=== PATIENT | female | born 1955 | race Caucasian/White ===

== ENCOUNTER 2020-11-09 13:08 | Inpatient (IN) ==
[~2020-11-09 13:08] MED LIST: KETAMINE HCL 50 MG/ML ML IV PRN; MIDAZOLAM 2 MG/2 ML VIAL IV SCH; PROPOFOL 200 MG/20 ML VIAL IV SCH
--- NOTE | 2020-11-09 17:03 | General Surg History&Physical ---
HPI History of Present Illness Patient information: Note initiated : 11/09/20 at 5:03 pm Service Date, if different from initiated Date: [] Patient: Liya Song 65 y/o F admitted on 11/09/20 for Eso phogogastroduodenoscopy and Colonoscopy. Chief Complaint: [] History of present illness: Ms. Song is a 65 year old F admitted for evaluation of an inflammatory mass of the lower sigmoid colon with associated hemorrhage. The patient has greater than a 1 year history of crampy abdominal pain with intermittent nausea and vomiting. She had change in bowel habits with passage of very small stools and intermittent rectal bleeding. She has a history of diverticulosis but no documented episode of diverticulitis. She has had emesis 2-3 times per week and she has had a 5 pound weight loss. Patient underwent colonoscopy earlier today and was found to have an inflammatory lesion with a large cavity exiting off the side of her distal sigmoid with a deep cavity with hemorrhage. She has extensive diverticulosis in the area. Patient is felt to have a pericolonic abscess or a very large diverticulum with severe inflammation. She is admitted and will have follow-up radiographic evaluation in the morning after she passes some of the gas. She will be started on antibiotics and will probably need to have a segmental colectomy. Constitutional Constitutional: Present anorexia, fatigue, malaise, night sweats and weight loss EENT Eyes: Absent blurry vision and loss of vision Ears: Absent decreased hearing and ear discharge Nose, mouth and throat: Absent dry mouth, dysphagia and hoarseness Cardiovascular Cardiovascular: Absent chest pain, dyspnea on exertion and leg edema Respiratory Respiratory: Absent cough, dyspnea on exertion and wheezing Gastrointestinal Gastrointestinal: Present abdominal pain, change in bowel habits, change in stool character, cramping, dyspepsia, hematochezia, nausea and vomiting Genitourinary Genitourinary: Present difficulty voiding and urinary frequency Musculoskeletal Musculoskeletal: Absent abnormal gait, arthralgias, myalgias, numbness and stiffness Integumentary Integumentary: Absent changing lesions, pruritus and rash Neurological Neurological: Present tremor(s); Absent confusion, focal weakness and numbness Psychiatric Psychiatric: Absent confusion, depression and memory loss Endocrine Endocrine: Absent deeping of the voice, excessive sweating, heat intolerance and palpitations Hematologic/Lymphatic Hematologic/Lymphatic: Absent easy bleeding, easy bruising and lymphadenopathy Allergic/Immunologic Allergic/Immunologic: Absent tongue swelling, throat swelling, uticaria, wheezing and lip swelling PFSH PFSH All Active Problems (Updated 11/10/20 @ 13:31 by Get Romano MD) COPD (chronic obstructive pulmonary disease) (Acute) Rectal bleeding (Acute) Colonic mass (Acute) GERD (gastroesophageal reflux disease) (Acute) Change in stool (Acute) Nausea & vomiting (Acute) Tremor (Acute) DJD (degenerative joint disease) (Acute) Stomach ulcer (Acute) Joint pain (Acute) High cholesterol (Acute) Hypertension (Acute) Depression (Acute) Arthritis (Acute) Acid reflux (Acute) Left knee sprain (Acute) Bronchitis with bronchospasm (Acute) Acute exacerbation of chronic obstructive airways disease (Acute) Medical History Acid reflux (Acute) Acute exacerbation of chronic obstructive airways disease (Acute) Arthritis (Acute) Bronchitis with bronchospasm (Acute) Depression (Acute) DJD (degenerative joint disease) (Acute) High cholesterol (Acute) Hypertension (Acute) Joint pain (Acute) Left knee sprain (Acute) Stomach ulcer (Acute) Surgical History History of colonoscopy (Acute) Family History Father Lung cancer Alzheimer disease Mother Type 2 diabetes mellitus Other Arthritis Social History marital status: occupational status: employed occupation: [employer] smoking status: Former smoker alcohol intake frequency: 0-2 drinks per day substance use type: does not use MEDS/ALLERGIES Home Medications and Allergies Home Medications Medication Instructions Recorded Confirmed Type loratadine 10 mg tablet 10 mg PO QDAY #30 tab 08/18/20 11/09/20 Rx propranolol 60 mg capsule,24 60 mg PO QDAY #30 cap 08/18/20 11/09/20 Rx hr,extended release bupropion HCl 150 mg 24 hr tablet, 150 mg PO QDAY #90 tab 09/05/20 11/09/20 Rx extended release escitalopram oxalate 10 mg tablet 10 mg PO DAILY #90 tab 09/05/20 11/09/20 Rx losartan 50 mg tablet 50 mg PO QDAY #90 tab 09/05/20 11/09/20 Rx pantoprazole 40 mg tablet,delayed 40 mg PO QDAY #60 tab 09/20/20 11/09/20 Rx release rosuvastatin 20 mg tablet 20 mg PO QDAY #90 tab 09/22/20 11/09/20 Rx calcium carbonate-vitamin D3 600 cap PO DAILY 11/09/20 11/09/20 History [Calcium 600 + D(3)] Allergies Allergy/AdvReac Type Severity Reaction Status Date / Time Penicillins Allergy Unknown Rash Verified 09/20/20 15:23 Physical Examination Vital Signs Vital signs: Temp Pulse Resp BP Pulse Ox 98.8 F 69 18 153/74 100 11/09/20 16:02 11/09/20 16:05 11/09/20 16:05 11/09/20 16:05 11/09/20 16:05 General physical appearance General physical exam: well developed, well nourished, no distress and no pain Eyes Eye exam: PERRL and normal ocular movement ENT ENT exam: normal mucosa and no congestion; negative no hearing loss Head Head exam IM: Present atraumatic, normal inspection and normocephalic Neck Neck exam: no masses, no bruits, trachea midline, no lymphadenopathy and no venous distension Cardiovascular Cardiovascular exam IM: Present normal rate and rhythm, RRR, +S1 and +S2; Absent JVD, systolic murmur and tachycardia Respiratory Respiratory exam: normal expansion, normal respiratory effort and clear to auscultation Abdomen Abdomen: Present soft, non tender, bowel sounds and distended; Absent masses and guarding Integumentary Integumentary: Present no rash, no growths and no abnormal pigmentation Neurologic Neurologic: Present normal coordination and normal sensation Musculoskeletal Musculoskeletal: Present normal gait and normal posture Psychiatric Psychiatric: Present oriented to time, oriented to person, oriented to place, speech is normal and memory intact Results Labs Result diagrams: 11/09/20 17:34 11/09/20 17:34 Labs: All other labs normal. A/P Assessment and plan (1) Colonic mass: Status: Acute (2) Rectal bleeding: Status: Acute (3) COPD (chronic obstructive pulmonary disease): Status: Acute Qualifiers: COPD type: emphysema Emphysema type: panlobular Qualified Code(s): J43.1 - Panlobular emphysema (4) GERD (gastroesophageal reflux disease): Status: Acute Qualifiers: Esophagitis presence: esophagitis presence not specified Qualified Code(s): K21.9 - Gastro-esophageal reflux disease without esophagitis (5) Change in stool: Status: Acute (6) Tremor: Status: Acute Narrative A/P Narrative: Patient will be started on IV antibiotics tonight CT of the abdomen and pelvis with IV and rectal contrast in the a.m. Transvaginal pelvic ultrasound in the a.m. Probable laparotomy with excision of sigmoid colon inflammatory mass on Saturday Time Spent With Patient Time: Total time spent is greater than 50% in coordination of care (as documented) at patient's floor/unit and/or counseling patient:
[2020-11-09] MEDS ORDERED: ONDANSETRON 4 MG/2 ML VIAL IV PRN (17:05)
[2020-11-09] MEDS ORDERED: PROMETHAZINE 25 MG/ML VIAL IV PRN (17:05)
[2020-11-09] MEDS: 0.9 % SODIUM CHLORIDE 1,000 ML IV SCH ×2 (17:34→22:37)
--- NOTE | 2020-11-09 17:47 | XRay Report ---
INDICATION: preop evaluation TECHNIQUE: AP portable semiupright chest x-ray COMPARISON: Previous chest x-rays dated 10/06/2016, 09/03/2010 FINDINGS: Lungs:Lungs are negative. No focal pulmonary parenchymal infiltrate or mass Heart, vascular:No significant cardiomegaly. Pulmonary vascularity is normal. No pulmonary edema or pulmonary congestion Mediastinum, go:No mediastinal widening. No hilar mass Pleura:No pleural fluid. No pleural-based mass or calcification Skeletal:Negative. IMPRESSION: Negative AP chest x-ray Interpreted and Authenticated by: Wes Vance 11/09/20
[2020-11-09] MEDS: LEVOFLOXACIN 750 MG/150 ML BAG IV SCH (17:55)
[2020-11-09 18:16] LABS: Basophils # (Auto) 0.07 K/mcL (0.00-0.20); Basophils % (Auto) 0.8 % (0.0-2.0); Eosinophils # (Auto) 0.07 K/mcL (0.00-0.70); Eosinophils % (Auto) 0.8 % (0.0-7.0); Hematocrit 40.9 % (36.0-48.0); Hemoglobin 13.5 g/dL (12.0-15.0); Lymphocytes # (Auto) 1.41 K/mcL (1.50-4.80); Lymphocytes % (Auto) 16.8 % (15.0-49.0); Mean Cell Volume 100.7 fL (80.0-100.0); Mean Platelet Volume 9.4 fL (7.4-10.4); Monocytes # (Auto) 0.37 K/mcL (0.10-0.90); Monocytes % (Auto) 4.4 % (1.0-12.0); Neutrophils % (Auto) 77.2 % (38.0-78.0); Platelet Count 246 K/mcL (140-440); RBC 4.06 M/mcL (4.00-5.20); Red Cell Distribution Width 13.5 % (11.5-14.5); WBC 8.4 K/mcL (4.5-11.0)
[2020-11-09 18:42] LABS: INR 0.9 (0.9-1.1); Prothrombin Time 12.9 sec (11.9-14.5)
[2020-11-09 19:19] LABS: ALT/SGPT 19 U/L (<40); AST/SGOT 28 U/L (<32); Albumin 3.8 gm/dL (3.2-5.2); Alkaline Phosphatase 88 U/L (39-117); Bilirubin,Direct 0.2 mg/dL (<0.3); Blood Urea Nitrogen 10 mg/dL (8-23); Calcium 9.3 mg/dL (8.6-10.4); Carbon Dioxide 24 mmol/L (22-30); Chloride 97 mmol/L (96-108); Globulin 3.8 gm/dL (2.2-3.7); Glomerular Filtration Rate 101; Glucose 150 mg/dL (70-105); Lactate Dehydrogenase 179 U/L (135-225); Phosphorous 2.3 mg/dL (2.5-4.5); Triglycerides 120 mg/dL (<150); Uric Acid 3.3 mg/dL (2.5-8.0)
[2020-11-09] MEDS: metroNIDAZOLE 500 MG/100 ML BAG IV SCH ×2 (19:57→23:18)
[2020-11-09] MEDS ORDERED: SENNOSIDES 1 TABLET PO SCH (21:00)
[2020-11-09] MEDS: DOCUSATE SODIUM 100 MG CAPSULE PO SCH (21:25)
[2020-11-09] MEDS: 0.9 % SODIUM CHLORIDE 10 ML SYRINGE IV SCH (21:26)
[2020-11-10] MEDS: 0.9 % SODIUM CHLORIDE 1,000 ML IV SCH ×4 (03:54→17:29)
[2020-11-10] MEDS: metroNIDAZOLE 500 MG/100 ML BAG IV SCH ×5 (05:20→23:56)
[2020-11-10] MEDS: 0.9 % SODIUM CHLORIDE 10 ML SYRINGE IV SCH ×3 (05:21→22:38)
[2020-11-10] MEDS ORDERED: IOPAMIDOL 100 ML BOTTLE IV ONE (10:20)
[2020-11-10] MEDS: DOCUSATE SODIUM 100 MG CAPSULE PO SCH (10:35)
[2020-11-10] MEDS: PROPRANOLOL 60 MG CAP.XL.24H PO SCH ×2 (10:35→17:27)
[2020-11-10] MEDS: ESCITALOPRAM 10 MG TABLET PO SCH ×2 (10:35→17:27)
[2020-11-10] MEDS: LOSARTAN 50 MG TABLET PO SCH ×2 (10:35→17:27)
[2020-11-10] MEDS: PANTOPRAZOLE 40 MG TABLET PO SCH (10:36)
[2020-11-10] MEDS: LEVOFLOXACIN 750 MG/150 ML BAG IV SCH (10:36)
[2020-11-10] MEDS: buPROPion 150 MG TAB.XL.24H PO SCH ×2 (10:49→17:27)
--- NOTE | 2020-11-10 14:25 | General Surgery Progress Note ---
SUBJECTIVE Subjective Patient information: Note initiated : 11/10/20 at 2:18 pm Service Date, if different from initiated Date: [] Patient: Liya Song 65 y/o F admitted on 11/09/20 for Esophogogastroduodenoscopy and Colonoscopy. Chief Complaint: [] Interval history: Patient states that she feels better. She does have mild suprapubic discomfort. White blood count 8.4, hemoglobin 13.5, hematocrit 40.9, sed rate 39. CT and ultrasound revealed the large colonic inflammatory mass with adherence to the posterior wall of the bladder as well as the uterus. There is a cavitary lesion along the lateral aspect of the lower sigmoid which has contrast. This probably represents the cavity that could be seen endoscopically. Patient is advised that she will need to have sigmoid colectomy and possible hysterectomy. If the distal rectosigmoid is severely inflamed she may need to have end colostomy with Hughes's pouch. Patient gives her verbal consent and form for written consent has been completed. Constitutional Vitals: Vital Signs Temp Pulse Resp BP Pulse Ox 97.0 F 72 20 148/83 96 11/10/20 12:00 11/10/20 12:00 11/10/20 12:00 11/10/20 12:00 11/10/20 12:00 Period Temp Pulse Resp BP Sys/Manjarrez Pulse Ox Last 24 Hr 97.0 F-98.8 F 68-80 16-25 111-185/70-121 94-100 Intake and Output 11/10/20 11/10/20 11/10/20 05:59 13:59 21:59 Intake Total 1550 100 Output Total 350 Balance 1200 100 Weight 165 lb 4.8 oz Patient Weight 11/11/20 05:59 Weight 165 lb 4.8 oz Intake & Output: Intake & Output 11/10/20 11/10/20 11/10/20 05:59 13:59 21:59 Intake Total 1550 100 Output Total 350 Balance 1200 100 Weight 165 lb 4.8 oz Intake: IV 1200 100 Sodium Chloride 0.9% 1,000 ml @ 1000 150 mls/hr IV .[id number] [facility] Rx#: [id number] Oral 350 Output: Void Amount 350 Other: Urine Appearance Clear Clear Urine Color Dark Yellow Dark Yellow Stool Size Small Stool Color Blood Tinged Stool Consistency Liquid Watery Head Head exam: Present atraumatic, normal inspection and normocephalic Eye Eye exam: Present EOMI Pupils: Present normal accommodation and PERRL ENT ENT exam: Present mucous membranes moist and normal oropharynx Neck Neck exam: Present full ROM and normal inspection; Absent lymphadenopathy and tenderness Respiratory Respiratory exam: Present normal respiratory exam and CTAB; Absent rales, rhonchi and wheezes Cardiovascular Cardiovascular exam: Present normal rate and rhythm, JVD, RRR, +S1 and +S2; Absent gallop GI/Abdominal GI/Abdominal exam: Present normal bowel sounds, soft and tenderness (Tenderness in left lower quadrant and suprapubic region; no palpable mass); Absent distended Extremities Exam Extremities exam: Present full ROM, normal inspection and neurovascular intact; Absent pedal edema Back Exam Back exam: Present full ROM and normal inspection Neurological Exam Neurological exam: Present alert, CN II-XII intact, oriented X3 and reflexes normal Psychiatric Psychiatric exam: Present normal affect and normal mood Skin Skin exam: Present intact A/P Assessment and plan (1) Acute diverticulitis of intestine: Status: Acute (2) Rectal bleeding: Status: Acute (3) Colonic mass: Status: Acute (4) GERD (gastroesophageal reflux disease): Status: Acute Qualifiers: Esophagitis presence: esophagitis presence not specified Qualified Code(s): K21.9 - Gastro-esophageal reflux disease without esophagitis (5) COPD (chronic obstructive pulmonary disease): Status: Acute Qualifiers: COPD type: emphysema Emphysema type: panlobular Qualified Code(s): J4 3.1 - Panlobular emphysema Narrative A/P Narrative: FluidsPatient is counseled for her laparotomy with segmental sigmoid colon resection, possible abdominal hysterectomy She will be typed and crossed for 2 units of packed red cells Time Spent With Patient Time: Total time spent is greater than 50% in coordination of care (as documented) at patient's floor/unit and/or counseling patient:
[2020-11-10] MEDS: MAGNESIUM CITRATE 300 ML ORAL.SOL PO SCH ×2 (17:02→21:11)
--- NOTE | 2020-11-10 17:57 | Cat Scan Report ---
INDICATION: Possible mass in the sigmoid colon. Abnormal colonoscopy COMPARISON: None. TECHNIQUE: Axial images were obtained through the abdomen and pelvis. Sagittally and coronally reformatted images. 80 mL Isovue 370 injected intravenously. Oral and rectal contrast material was given FINDINGS: Lung bases:Negative. No pulmonary parenchymal nodule. No pleural fluid or pericardial fluid Liver:Probable mild fatty infiltration. Precontrast study was not performed. There is no hepatic mass. Liver contour is smooth. Gallbladder, bilary:No calcified gallstones. No gallbladder wall thickening. No dilated intra or extrahepatic bile ducts. Common bile duct measures 6 mm Spleen:No splenomegaly. Normal enhancement of splenic and portal veins. Pancreas:No pancreatic mass. No peripancreatic abnormality Adrenal glands:Negative Kidneys, ureters, bladder: 2.2 cm right lower pole renal cyst. This is benign. No solid renal mass. There is no hydronephrosis or hydroureter. No calculi identified on postcontrast enhanced images. There is no hydroureter. No ureteral stone No bladder calculi or detectable mass Gastrointestinal:Abnormal sigmoid colon. Rectum appears negative. Sigmoid colon is abnormal with markedly thickened irregular wall. A well-defined discrete mass is not identified. There is contrast extravasation from the mid sigmoid colon. This extends toward the left. This is contained. Appearance is most consistent with inflammatory disease and a walled off diverticular abscess. A well-defined focal mass is not identified although malignancy is not entirely excluded. There is no free contrast extravasation. There is no colovesical fistula. Sigmoid colon is in contact with the uterus and not clearly separable from it. There is no contrast extravasation into the uterine cavity. There is no discrete separate pelvic abscess Descending colon, transverse colon, ascending colon are negative. Small bowel is negative. No mechanical small bowel obstruction. Stomach and duodenum are negative. Appendix: The appendix is negative Vascular:Mild atherosclerotic calcification. No abdominal aortic aneurysm. Superior mesenteric artery and celiac trunk are normal. Inferior mesenteric artery opacifies normally Lymphatic:No retroperitoneal or significant mesenteric adenopathy. No pelvic or inguinal adenopathy Mesentery, peritoneum: No free intraperitoneal fluid. No mesenteric or retroperitoneal mass. No pneumoperitoneum Reproductive:Uterus is anteflexed. Ovaries appear normal Musculoskeletal:No lumbar compression fractures. There is degenerative disc disease and facet arthropathy. Pelvis and sacrum are negative. Hips are negativeNo abdominal wall or inguinal hernia IMPRESSION: 1. Abnormal sigmoid colon with markedly thickened colonic wall. A well-defined discrete mass is not identified although diffuse neoplasm is possible. Findings are consistent with a walled off diverticular abscess. There is no colovesical fistula or uterine fistula. 2. Sigmoid colon is in contact with the superior and left lateral aspects of the uterus. It is not clearly separable from the uterus. 3. Images were reviewed directly with Dr. Romano The exam was performed using radiation dose optimization techniques including, but not limited to, automated exposure control, adjustment of the mA and/or kV according to patient size and use of iterative reconstruction technique. Interpreted and Authenticated by: Wes Vance 11/10/20
--- NOTE | 2020-11-10 18:00 | Ultrasound Report ---
INDICATION: R/O OVARIAN MASS TECHNIQUE: Transabdominal and endovaginal pelvic ultrasound. Grayscale and color flow Doppler spectral imaging COMPARISON: CT scan dated 11/10/2020 FINDINGS: Uterus: Uterus is anteflexed. Uterus measures 5.7 x 3.6 x 4.7 cm. Heterogeneous myometrium. There may be a posterior myometrial fibroid Endometrium:Endometrium measures 5 mm. No endometrial fluid or detectable mass Right Ovary:Right ovary measures 1.5 x 1.3 x 1.5 cm. No right adnexal abnormality Left Ovary:Left ovary is not well visualized. There is a heterogeneous mass like abnormality in the left adnexal region. This corresponds with the CT scan. CT scan is consistent with diffuse inflammatory disease of the sigmoid colon and a walled off abscess (see CT scan report). Cul de sac: No free fluid within the pelvic cul-de-sac IMPRESSION: 1. Left adnexal abnormality consistent with walled off abscess and diffuse sigmoid abnormality 2. Probable small posterior myometrial fibroid Interpreted and Authenticated by: Wes Vance 11/10/20
[2020-11-10 22:15] LABS: Appearance,Urine CLEAR (Clear); Bilirubin,Urine Negative (Negative); Color,Urine YELLOW; Culture Indicated,Urine No; Glucose,Urine (UA) Negative (Negative); Ketones,Urine Negative (Negative); Leukocyte Esterase,Urine 75 /ug (Negative); Nitrate,Urine Negative (Negative); Protein,Urine Negative (Negative); Specific Gravity,Urine 1.016 (1.000-1.035); Urine Blood Negative (Negative); Urine RBC 1 /hpf (0-3); Urine Squamous Epithelial Cell 6 /hpf (0-4); Urine WBC 3 /hpf (0-4); Urobilinogen,Urine Negative
[2020-11-11] MEDS: 0.9 % SODIUM CHLORIDE 1,000 ML IV SCH ×4 (02:16→15:11)
[2020-11-11] MEDS: metroNIDAZOLE 500 MG/100 ML BAG IV SCH ×4 (06:03→20:47)
[2020-11-11] MEDS: 0.9 % SODIUM CHLORIDE 10 ML SYRINGE IV SCH ×2 (06:04→14:49)
[2020-11-11 06:46] LABS: Basophils # (Auto) 0.05 K/mcL (0.00-0.20); Basophils % (Auto) 0.8 % (0.0-2.0); Eosinophils # (Auto) 0.23 K/mcL (0.00-0.70); Eosinophils % (Auto) 3.5 % (0.0-7.0); Hematocrit 38.3 % (36.0-48.0); Hemoglobin 12.5 g/dL (12.0-15.0); Lymphocytes # (Auto) 1.92 K/mcL (1.50-4.80); Lymphocytes % (Auto) 29.1 % (15.0-49.0); Mean Cell Volume 101.1 fL (80.0-100.0); Mean Corpuscular HGB Conc 32.6 g/dL (31.0-36.0); Mean Platelet Volume 9.3 fL (7.4-10.4); Monocytes # (Auto) 0.64 K/mcL (0.10-0.90); Monocytes % (Auto) 9.7 % (1.0-12.0); Neutrophils % (Auto) 56.9 % (38.0-78.0); Platelet Count 211 K/mcL (140-440); RBC 3.79 M/mcL (4.00-5.20); Red Cell Distribution Width 13.2 % (11.5-14.5); WBC 6.6 K/mcL (4.5-11.0)
[2020-11-11 06:54] LABS: ALT/SGPT 10 U/L (<40); AST/SGOT 17 U/L (<32); Albumin 3.2 gm/dL (3.2-5.2); Alkaline Phosphatase 71 U/L (39-117); Bilirubin,Direct < 0.2 mg/dL (<0.3); Bilirubin,Total 0.5 mg/dL (0.1-1.0); Blood Urea Nitrogen 2 mg/dL (8-23); Calcium 8.6 mg/dL (8.6-10.4); Carbon Dioxide 22 mmol/L (22-30); Chloride 105 mmol/L (96-108); Globulin 3.2 gm/dL (2.2-3.7); Glomerular Filtration Rate 96; Glucose 99 mg/dL (70-105); Lactate Dehydrogenase 180 U/L (135-225); Phosphorous 3.2 mg/dL (2.5-4.5); Triglycerides 79 mg/dL (<150); Uric Acid 2.3 mg/dL (2.5-8.0)
[2020-11-11] MEDS: PANTOPRAZOLE 40 MG TABLET PO SCH (07:11)
[2020-11-11] MEDS: PROPRANOLOL 60 MG CAP.XL.24H PO SCH (08:03)
[2020-11-11] MEDS: LEVOFLOXACIN 750 MG/150 ML BAG IV SCH (08:03)
[2020-11-11] MEDS: ESCITALOPRAM 10 MG TABLET PO SCH (08:03)
[2020-11-11] MEDS: buPROPion 150 MG TAB.XL.24H PO SCH (08:03)
[2020-11-11] MEDS: LOSARTAN 50 MG TABLET PO SCH (08:03)
[2020-11-11] MEDS ORDERED: MAGNESIUM SULFATE 24.36 MEQ in DEXTROSE 5% IN WATER 50 ML IV ONE (10:41)
[2020-11-11] MEDS ORDERED: SUGAMMADEX SODIUM 200 MG/2 ML VIAL IV ONE (10:57)
[2020-11-11] MEDS ORDERED: fentaNYL 250 MCG/5 ML VIAL IV ONE (10:57)
[2020-11-11] MEDS ORDERED: PHENYLEPHRINE 10 MG/ML VIAL ONE (10:57)
[2020-11-11] MEDS ORDERED: DEXAMETHASONE 10 MG/ML VIAL ONE (10:57)
[2020-11-11] MEDS ORDERED: MIDAZOLAM 2 MG/2 ML VIAL ONE (10:57)
[2020-11-11] MEDS ORDERED: PROPOFOL 200 MG/20 ML VIAL IV ONE (10:57)
[2020-11-11] MEDS ORDERED: KETAMINE 100 MG/ML ML ONE (10:57)
[2020-11-11] MEDS ORDERED: LIDOCAINE HCL/PF 100 MG/5 ML SYRINGE IV ONE (10:57)
[2020-11-11] MEDS ORDERED: ONDANSETRON 4 MG/2 ML VIAL ONE (10:57)
[2020-11-11] MEDS ORDERED: GLYCOPYRROLATE 0.2 MG/ML VIAL IV ONE (10:57)
[2020-11-11] MEDS ORDERED: ROCURONIUM 10 MG/ML ML IV ONE (10:57)
[2020-11-11] MEDS ORDERED: MAGNESIUM SULFATE 4 GM/100 ML BAG IV ONE (10:57)
[2020-11-11] MEDS ORDERED: ePHEDrine 50 MG/ML AMPUL IV ONE (10:57)
[2020-11-11] MEDS ORDERED: PROMETHAZINE 25 MG/ML VIAL IV PRN ×2 (12:37→14:19)
[2020-11-11] MEDS ORDERED: ONDANSETRON 4 MG/2 ML VIAL IV PRN (12:37)
[2020-11-11] MEDS ORDERED: NALOXONE HCL 0.4 MG/ML VIAL IV PRN (12:37)
[2020-11-11] MEDS ORDERED: FLUMAZENIL 0.1 MG/ML ML IV PRN (12:37)
[2020-11-11] MEDS ORDERED: MEPERIDINE 25 MG/ML SYRINGE IV PRN (12:37)
[2020-11-11] MEDS ORDERED: HYDROmorphone 0.5 MG/0.5 ML SYRINGE IV PRN (12:37)
[2020-11-11] MEDS ORDERED: ACETAMINOPHEN 1,000 MG/100 ML BAG IV ONE (12:37)
[2020-11-11] MEDS ORDERED: LACTATED RINGERS 250 ML IV PRN (12:37)
[2020-11-11] MEDS ORDERED: diphenhydrAMINE 50 MG/ML VIAL IV PRN (12:37)
[2020-11-11] MEDS ORDERED: fentaNYL 100 MCG/2 ML VIAL IV PRN (12:37)
[2020-11-11] MEDS ORDERED: IPRATROPIUM/ALBUTEROL 3 ML AMPUL.NEB NEB PRN (12:37)
[2020-11-11] MEDS ORDERED: LACTATED RINGERS 1,000 ML IV SCH (12:45)
--- NOTE | 2020-11-11 12:49 | Surgical Pathology Report ---
Histology Microscopic Diagnosis Specimen A- STOMACH, ANTRUM, BIOPSY: --- CHRONIC GASTRITIS, MILD, WITHOUT ACTIVITY. --- NO HELICOBACTER ORGANISMS IDENTIFIED ON ALCIAN YELLOW STAIN (ADEQUATE TECHNICAL CONTROL). 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 Clinical correlation is necessary. Specimen D - The clinical impression of an obstructing lesion is noted. The sampled tissue consists of inflamed granulation tissue consistent with an ulcer bed. No associated malignancy is identified in multiple step sections examined. If clinical concern for malignancy is present, then additional sampling should be considered. Clinical correlation is necessary. Clinical History Abdominal pain; nausea/vomiting; weight loss; hematochezia. Procedural Impression (?) Nicholson's; cyclic vomiting; sigmoid colon obstructive lesion with large cavity. Gross Description Received in formalin labeled gastric antrum, is a 0.4 cm fragment of becerra tissue. Totally submitted - one cassette. Microscopic Diagnosis Specimen B- ESOPHAGUS, BIOPSY: --- GASTROESOPHAGEAL JUNCTIONAL MUCOSA WITH INTESTINAL METAPLASIA, MODERATE CHRONIC INFLAMMATION AND MILD ACUTE INFLAMMATION; SEE COMMENT. --- INTESTINAL METAPLASIA IDENTIFIED ON ALCIAN BLUE/PAS STAIN (ADEQUATE TECHNICAL CONTROL). --- NEGATIVE FOR DYSPLASIA. --- SQUAMOUS EPITHELIUM WITH SCATTERED INTRAEPITHELIAL NEUTROPHILS (UP TO 2/hpf). Gross Description Received in formalin labeled esophagus biopsy, are two fragments of couch-becerra tissue 0.3 and 0.4 cm. Totally submitted - one cassette. Microscopic Diagnosis Specimen C- COLON, SIGMOID, BIOPSY: --- COLONIC MUCOSA WITH PATCHY SURFACE HYPERPLASTIC CHANGE. --- NO ARCHITECTURAL CHANGES OF CHRONIC COLITIS, ACTIVE COLITIS, MICROSCOPIC COLITIS, DYSPLASIA OR MALIGNANCY IDENTIFIED. Gross Description Received in formalin labeled sigmoid colon biopsy, are four fragments of couch-becerra tissue 0.2 to 0.3 cm. Totally submitted - one cassette. Microscopic Diagnosis Specimen D- COLON, MID SIGMOID, BIOPSY: --- FRAGMENTS OF GRANULATION TISSUE WITH ASSOCIATED ACUTE AND CHRONIC INFLAMMATION, CONSISTENT WITH ULCER BED; SEE COMMENT. --- NO INTACT MUCOSA, DYSPLASIA OR MALIGNANCY IDENTIFIED. (DMT:sln) Gross Description Received in formalin labeled mid sigmoid colon biopsy, are six fragments of becerra tissue 0.2 to 0.4 cm. Totally submitted - one cassette. (KGW:sln) Electronically Signed Asim Turner MD, FCAP Electronically Signed 11/11/2020 12:47
--- NOTE | 2020-11-11 13:17 | Brief Operative Note ---
Brief Operative Note Date of procedure: 11/11/20 Pre-op diagnosis: diverticulitis with sigmoid mass Post-op diagnosis: other (diverticulitis with perforation and sigmoid abscess) Procedure: sigmoid colectomy with hartmans procedure Grafts/Implants: No (#10 ANIYAH DRAIN) Anesthesia: GETA Findings: PERFORATED SIGMOID COLON WITH CHRONIC ABSCESS LEFT LATERAL PELVIS Complications: none Surgeon: Get Romano Estimated blood loss (cc): 40 Specimens Removed/Pathology: other (SIGMOID COLON SEGMENT) Condition: stable Disposition: PACU
[2020-11-11] MEDS ORDERED: metroNIDAZOLE 500 MG/100 ML BAG IV SCH (14:00)
--- NOTE | 2020-11-11 14:29 | EGD Procedure Note ---
EGD Procedure Notes Procedure Information Patient information: Note initiated : 11/11/20 at 2:27 pm Service Date: 11/09/20 Patient: Liya Song 65 y/o F admitted on 11/09/20 for Esophogogastroduodenoscopy and Colonoscopy. Pre-op diagnosis general: Abdominal pain. Nausea and vomiting. Weight loss. Post-Op Diagnosis general: Query Nicholson's. Cyclic vomiting. Procedure: EGD with Bx Procedure Narrative: The procedure, alternatives and risks were discussed with the patient and the patient's questions were answered. With endoscopist-administered intravenous sedation, the Olympus video endoscope was introduced into the esophagus. The esophagus, stomach, and duodenum were examined sequentially. There is no esophagitis on current therapy. A small tongue of columnar epithe lium was seen above the esophagogastric junction. This was multiply biopsied in order to assess for possible dysplasia. There is no hiatal hernia. The gastric mucosa, antrum, pyloric ring and duodenum were otherwise normal. Gastric biopsy taken for H. pylori. Assessment: Query Nicholson's. Cyclic vomiting.
--- NOTE | 2020-11-11 14:31 | Colonoscopy Procedure Note ---
Colonoscopy Procedure Notes Procedure Information Patient information: Note initiated : 11/11/20 at 2:29 pm Service Date: 11/09/20 Patient: Liya Song 65 y/o F admitted on 11/09/20 for Esophogogastroduodenoscopy and Colonoscopy. Pre-op diagnosis general: Abdominal pain, nausea and vomiting, weight loss. Post-op diagnosis general: Sigmoid colon obstructing lesion with large cavity. Procedure: Colonoscopy with Bx Procedure narrative: The procedure, alternatives and risks were discussed with the patient and the patient's questions were answered. With endoscopist-administ ered intravenous sedation, the Olympus colonoscope was introduced into the rectum. An obstructing lesion was seen in the sigmoid colon so scope was changed in favor of an EGD scope and advanced to the cecum. There is a large area of inflammatory tissue with huge cavity in the sigmoid colon; this was boispied. Ileocecal valve was identified, intubated, and several centimeters of the terminal ileum were examined and appeared normal. Assessment: Sigmoid colon obstructing lesion with large cavity; ovarian vs colon CA vs inflammation from diverticulitis.
[2020-11-11] MEDS: KETOROLAC 30 MG/ML VIAL IV SCH ×2 (17:33→23:35)
[2020-11-11] MEDS ORDERED: KETOROLAC 30 MG/ML VIAL ONE (17:37)
[2020-11-11] MEDS: ONDANSETRON 4 MG/2 ML VIAL IV PRN (18:56)
[2020-11-11] MEDS: ACETAMINOPHEN 1,000 MG/100 ML BAG IV SCH ×2 (19:07→23:33)
[2020-11-11] MEDS: HYDROmorphone 1 MG/ML SYRINGE IV PRN (20:47)
[2020-11-12] MEDS: metroNIDAZOLE 500 MG/100 ML BAG IV SCH ×4 (00:09→17:45)
[2020-11-12] MEDS: 0.9 % SODIUM CHLORIDE 1,000 ML IV SCH ×5 (03:46→23:40)
[2020-11-12] MEDS: KETOROLAC 30 MG/ML VIAL IV SCH ×3 (05:54→17:07)
[2020-11-12] MEDS: ACETAMINOPHEN 1,000 MG/100 ML BAG IV SCH ×3 (05:55→17:08)
[2020-11-12 06:29] LABS: Basophils # (Auto) 0.01 K/mcL (0.00-0.20); Basophils % (Auto) 0.1 % (0.0-2.0); Eosinophils # (Auto) 0 K/mcL (0.00-0.70); Eosinophils % (Auto) 0 % (0.0-7.0); Hematocrit 34.4 % (36.0-48.0); Hemoglobin 11.2 g/dL (12.0-15.0); Lymphocytes # (Auto) 1.66 K/mcL (1.50-4.80); Lymphocytes % (Auto) 14.3 % (15.0-49.0); Mean Cell Volume 101.8 fL (80.0-100.0); Mean Corpuscular HGB Conc 32.6 g/dL (31.0-36.0); Mean Platelet Volume 9.5 fL (7.4-10.4); Monocytes # (Auto) 0.82 K/mcL (0.10-0.90); Monocytes % (Auto) 7.1 % (1.0-12.0); Neutrophils % (Auto) 78.5 % (38.0-78.0); Platelet Count 207 K/mcL (140-440); RBC 3.38 M/mcL (4.00-5.20); Red Cell Distribution Width 13.3 % (11.5-14.5); WBC 11.6 K/mcL (4.5-11.0)
[2020-11-12 06:50] LABS: ALT/SGPT 9 U/L (<40); AST/SGOT 14 U/L (<32); Albumin 2.7 gm/dL (3.2-5.2); Alkaline Phosphatase 58 U/L (39-117); Bilirubin,Direct < 0.2 mg/dL (<0.3); Bilirubin,Total 0.4 mg/dL (0.1-1.0); Blood Urea Nitrogen 5 mg/dL (8-23); Carbon Dioxide 21 mmol/L (22-30); Chloride 102 mmol/L (96-108); Globulin 2.6 gm/dL (2.2-3.7); Glomerular Filtration Rate 101; Glucose 87 mg/dL (70-105); Lactate Dehydrogenase 177 U/L (135-225); Phosphorous 3.5 mg/dL (2.5-4.5); Triglycerides 71 mg/dL (<150); Uric Acid 2.2 mg/dL (2.5-8.0)
[2020-11-12] MEDS: buPROPion 150 MG TAB.XL.24H PO SCH (10:39)
[2020-11-12] MEDS: ESCITALOPRAM 10 MG TABLET PO SCH (10:40)
[2020-11-12] MEDS: LEVOFLOXACIN 750 MG/150 ML BAG IV SCH (10:41)
[2020-11-12] MEDS: HYDROmorphone 1 MG/ML SYRINGE IV PRN ×2 (10:48→19:23)
[2020-11-12] MEDS: PROPRANOLOL 60 MG CAP.XL.24H PO SCH (12:11)
--- NOTE | 2020-11-12 14:42 | General Surgery Progress Note ---
SUBJECTIVE Subjective Patient information: Note initiated : 11/12/20 at 2:39 pm Service Date, if different from initiated Date: [] Patient: Liya Song 65 y/o F admitted on 11/09/20 for Esophogogastroduodenoscopy and Colonoscopy. Chief Complaint: [] Principal diagnosis: Perforated diverticulitis with abscess Interval history: Patient is doing well. She has been afebrile. Her pain is controlled. She denies nausea. There has not been any output through her stoma. Stoma is viable. White blood count 11.6, hemoglobin 11.2, hematocrit 34.4, potassium 3.8, BUN 5, creatinine 0.5. Constitutional Vitals: Vital Signs Temp Pulse Resp BP Pulse Ox 98.3 F 68 16 93/51 94 11/12/20 12:00 11/12/20 12:00 11/12/20 12:00 11/12/20 12:00 11/12/20 12:00 Period Temp Pulse Resp BP Sys/Manjarrez Pulse Ox Last 24 Hr 98 F-98.9 F 68-96 16-20 93-135/51-79 93-95 Intake and Output 11/12/20 11/12/20 11/12/20 05:59 13:59 21:59 Intake Total 1500 200 Output Total 355 900 Balance 1145 -700 Intake & Output: Intake & Output 11/12/20 11/12/20 11/12/20 05:59 13:59 21:59 Intake Total 1500 200 Output Total 355 900 Balance 1145 -700 Intake: IV 1200 200 Sodium Chloride 0.9% 1,000 ml @ 1000 125 mls/hr IV .Q8H [facility] Rx#: [id number] Oral 300 Output: Gastric Drainage 900 Right Nare NG/OG 900 Drainage 30 Right Abdomen 30 Urine Catheter Amount 325 Other: Meal NPO Percent of Meal Consumed ice chips Urine Appearance Clear Clear Urine Color Dark Yellow Dark Yellow Urine Odor Normal Normal Respiratory Respiratory exam: Present normal respiratory exam and CTAB; Absent rales, rhonchi and wheezes Cardiovascular Cardiovascular exam: Present normal rate and rhythm, JVD, RRR, +S1 and +S2; Absent gallop GI/Abdominal GI/Abdominal exam: Present diminished bowel sounds, distended (Moderate d istention with decreased bowel sounds) and tenderness (Tenderness around stoma and midline incision) Extremities Exam Extremities exam: Present full ROM, normal inspection and neurovascular intact; Absent pedal edema Neurological Exam Neurological exam: Present alert, CN II-XII intact, oriented X3 and reflexes normal Psychiatric Psychiatric exam: Present normal affect and normal mood Skin Skin exam: Present intact A/P Assessment and plan (1) Acute diverticulitis of intestine: Status: Acute (2) COPD (chronic obstructive pulmonary disease): Status: Acute Qualifiers: COPD type: emphysema Emphysema type: panlobular Qualified Code(s): J43.1 - Panlobular emphysema Narrative A/P Narrative: Continue on present antibiotics Dressing change Continue nasogastric decompression Time Spent With Patient Time: Total time spent is greater than 50% in coordination of care (as docu mented) at patient's floor/unit and/or counseling patient:
[2020-11-13] MEDS: metroNIDAZOLE 500 MG/100 ML BAG IV SCH ×4 (00:10→18:08)
[2020-11-13] MEDS: ACETAMINOPHEN 1,000 MG/100 ML BAG IV SCH ×5 (00:10→23:52)
[2020-11-13] MEDS: KETOROLAC 30 MG/ML VIAL IV SCH ×3 (00:13→11:43)
[2020-11-13] MEDS: 0.9 % SODIUM CHLORIDE 1,000 ML IV SCH ×4 (06:00→23:15)
[2020-11-13 06:29] LABS: Basophils # (Auto) 0.04 K/mcL (0.00-0.20); Basophils % (Auto) 0.5 % (0.0-2.0); Eosinophils # (Auto) 0.22 K/mcL (0.00-0.70); Eosinophils % (Auto) 2.5 % (0.0-7.0); Hematocrit 34.3 % (36.0-48.0); Hemoglobin 11.1 g/dL (12.0-15.0); Lymphocytes # (Auto) 2.12 K/mcL (1.50-4.80); Lymphocytes % (Auto) 23.9 % (15.0-49.0); Mean Cell Volume 102.7 fL (80.0-100.0); Mean Corpuscular HGB Conc 32.4 g/dL (31.0-36.0); Mean Platelet Volume 9.3 fL (7.4-10.4); Monocytes % (Auto) 7.9 % (1.0-12.0); Neutrophils % (Auto) 65.2 % (38.0-78.0); Platelet Count 214 K/mcL (140-440); RBC 3.34 M/mcL (4.00-5.20); Red Cell Distribution Width 13.6 % (11.5-14.5); WBC 8.9 K/mcL (4.5-11.0)
[2020-11-13 06:53] LABS: ALT/SGPT 10 U/L (<40); AST/SGOT 15 U/L (<32); Albumin 2.8 gm/dL (3.2-5.2); Albumin/Globulin Ratio 1.1 (1.0-2.3); Alkaline Phosphatase 57 U/L (39-117); Bilirubin,Direct < 0.2 mg/dL (<0.3); Bilirubin,Total 0.3 mg/dL (0.1-1.0); Blood Urea Nitrogen 5 mg/dL (8-23); Calcium 8.2 mg/dL (8.6-10.4); Carbon Dioxide 22 mmol/L (22-30); Chloride 102 mmol/L (96-108); Globulin 2.6 gm/dL (2.2-3.7); Glomerular Filtration Rate 101; Glucose 62 mg/dL (70-105); Lactate Dehydrogenase 176 U/L (135-225); Phosphorous 2.5 mg/dL (2.5-4.5); Triglycerides 98 mg/dL (<150)
[2020-11-13] MEDS: ONDANSETRON 4 MG/2 ML VIAL IV PRN (08:32)
[2020-11-13] MEDS: PROPRANOLOL 60 MG CAP.XL.24H PO SCH (09:35)
[2020-11-13] MEDS: ESCITALOPRAM 10 MG TABLET PO SCH (09:35)
[2020-11-13] MEDS: buPROPion 150 MG TAB.XL.24H PO SCH (09:35)
[2020-11-13] MEDS: LEVOFLOXACIN 750 MG/150 ML BAG IV SCH (09:38)
--- NOTE | 2020-11-13 12:59 | General Surgery Progress Note ---
SUBJECTIVE Subjective Patient information: Note initiated : 11/13/20 at 12:56 pm Service Date, if different from initiated Date: [] Patient: Liya Song 65 y/o F admitted on 11/09/20 for Esophogogastroduodenoscopy and Colonoscopy. Chief Complaint: [] Principal diagnosis: Perforated diverticulitis with abscess Interval history: Patient is doing well. She states that she is feeling some gaseous discomfort and had nausea with vomiting x1 earlier. There has been no functioning of her stoma so far. Her pain is controlled. Potassium 3.5, BUN 5, creatinine 0.5, white blood count 8.9, hemoglobin 11.1, hematocrit 34.3 Constitutional Vitals: Vital Signs Temp Pulse Resp BP Pulse Ox 98.7 F 84 16 150/80 95 11/13/20 11:20 11/13/20 11:20 11/13/20 11:20 11/13/20 11:20 11/13/20 11:20 Period Temp Pulse Resp BP Sys/Manjarrez Pulse Ox Last 24 Hr 97.9 F-98.7 F 74-86 16-20 108-150/60-80 93-95 Intake and Output 11/12/20 11/13/20 11/13/20 21:59 05:59 13:59 Intake Total 300 1320 200 Output Total 1000 1330 820 Balance -700 -10 -620 Weight 186 lb 12.8 oz Intake & Output: Intake & Output 11/12/20 11/13/20 11/13/20 21:59 05:59 13:59 Intake Total 300 1320 200 Output Total 1000 1330 820 Balance -700 -10 -620 Weight 186 lb 12.8 oz Intake: IV 300 1200 200 Sodium Chloride 0.9% 1,000 ml @ 1000 125 mls/hr IV .Q8H [facility] Rx#: [id number] Oral 120 Output: Gastric Drainage 750 950 Right Nare NG/OG 750 950 Drainage 50 30 20 Right Abdomen 50 30 20 Urine Catheter Amount 200 350 800 Other: Meal Lunch Percent of Meal Consumed NPO Urine Appearance Clear Clear Clear Uretheral (Schreiber) Clear Clear Urine Color Light Kaylie Light Kaylie Bright Yellow Uretheral (Schreiber) Light Kaylie Light Kaylie Urine Odor Normal Normal Normal Uretheral (Schreiber) Normal Normal Stool Size Smear Smear Stool Color Blood Tinged Bright Red Blood Stool Consistency Watery Watery Loose Neck Neck exam: Present full ROM and normal inspection; Absent lymphadenopathy and tenderness Respiratory Respiratory exam: Present normal respiratory exam and CTAB; Absent rales, rhonchi and wheezes Cardiovascular Cardiovascular exam: Present normal rate and rhythm, JVD, RRR, +S1 and +S2; Absent gallop GI/Abdominal GI/Abdominal exam: Present diminished bowel sounds, distended (Moderate diste ntion with decreased bowel sounds) and tenderness (Tenderness around stoma and midline incision) Extremities Exam Extremities exam: Present full ROM, normal inspection and neurovascular intact; Absent pedal edema Neurological Exam Neurological exam: Present alert, CN II-XII intact, oriented X3 and reflexes normal Psychiatric Psychiatric exam: Present normal affect and normal mood Skin Skin exam: Present intact A/P Assessment and plan (1) Acute diverticulitis of intestine: Status: Acute (2) COPD (chronic obstructive pulmonary disease): Status: Acute Qualifiers: COPD type: emphysema Emphysema type: panlobular Qualified Code(s): J43.1 - Panlobular emphysema (3) GERD (gastroesophageal reflux disease): Status: Acute Qualifiers: Esophagitis presence: esophagitis presence not specified Qualified Code(s): K21.9 - Gastro-esophageal reflux disease without esophagitis Narrative A/P Narrative: Continue present therapy Time Spent With Patient Time: Total time spent is greater than 50% in coordination of care (as documented) at patient's floor/unit and/or counseling patient:
[2020-11-13] MEDS: METOCLOPRAMIDE 10 MG/2 ML VIAL IV SCH ×2 (17:11→23:52)
[2020-11-13] MEDS: HYDROmorphone 1 MG/ML SYRINGE IV PRN (21:18)
[2020-11-14] MEDS: metroNIDAZOLE 500 MG/100 ML BAG IV SCH ×4 (00:26→17:11)
[2020-11-14] MEDS: METOCLOPRAMIDE 10 MG/2 ML VIAL IV SCH ×4 (05:35→23:57)
[2020-11-14] MEDS: ACETAMINOPHEN 1,000 MG/100 ML BAG IV SCH ×4 (05:36→23:57)
[2020-11-14 06:17] LABS: Basophils # (Auto) 0.06 K/mcL (0.00-0.20); Basophils % (Auto) 0.7 % (0.0-2.0); Eosinophils # (Auto) 0.28 K/mcL (0.00-0.70); Eosinophils % (Auto) 3.3 % (0.0-7.0); Hematocrit 36.1 % (36.0-48.0); Hemoglobin 11.8 g/dL (12.0-15.0); Lymphocytes # (Auto) 2.04 K/mcL (1.50-4.80); Lymphocytes % (Auto) 24.1 % (15.0-49.0); Mean Cell Volume 101.1 fL (80.0-100.0); Mean Corpuscular HGB Conc 32.7 g/dL (31.0-36.0); Mean Platelet Volume 9.4 fL (7.4-10.4); Monocytes # (Auto) 0.74 K/mcL (0.10-0.90); Monocytes % (Auto) 8.7 % (1.0-12.0); Neutrophils % (Auto) 63.2 % (38.0-78.0); Platelet Count 238 K/mcL (140-440); RBC 3.57 M/mcL (4.00-5.20); Red Cell Distribution Width 13.4 % (11.5-14.5); WBC 8.5 K/mcL (4.5-11.0)
[2020-11-14 06:44] LABS: ALT/SGPT 9 U/L (<40); AST/SGOT 14 U/L (<32); Albumin 2.9 gm/dL (3.2-5.2); Albumin/Globulin Ratio 1.1 (1.0-2.3); Alkaline Phosphatase 56 U/L (39-117); Bilirubin,Direct < 0.2 mg/dL (<0.3); Bilirubin,Total 0.3 mg/dL (0.1-1.0); Blood Urea Nitrogen 2 mg/dL (8-23); Calcium 8.2 mg/dL (8.6-10.4); Carbon Dioxide 18 mmol/L (22-30); Chloride 103 mmol/L (96-108); Globulin 2.6 gm/dL (2.2-3.7); Glomerular Filtration Rate 101; Glucose 61 mg/dL (70-105); Lactate Dehydrogenase 177 U/L (135-225); Phosphorous 2.5 mg/dL (2.5-4.5); Triglycerides 129 mg/dL (<150)
[2020-11-14] MEDS: 0.9 % SODIUM CHLORIDE 1,000 ML IV SCH ×3 (06:56→22:15)
[2020-11-14] MEDS: ESCITALOPRAM 10 MG TABLET PO SCH (08:00)
[2020-11-14] MEDS: buPROPion 150 MG TAB.XL.24H PO SCH (08:01)
[2020-11-14] MEDS: LEVOFLOXACIN 750 MG/150 ML BAG IV SCH (08:01)
[2020-11-14] MEDS: PROPRANOLOL 60 MG CAP.XL.24H PO SCH (08:01)
--- NOTE | 2020-11-14 12:04 | General Surgery Progress Note ---
SUBJECTIVE Subjective Patient information: Note initiated : 11/14/20 at 11:57 am Service Date, if different from initiated Date: [] Patient: Liya Song 65 y/o F admitted on 11/09/20 for Esophogogastroduodenoscopy and Colonoscopy. Chief Complaint: [] Principal diagnosis: Perforated diverticulitis with abscess Interval history: Patient continues to improve. Vital signs have been stable. She is passing flatus and liquid stool through her stoma and she does not have major abdominal pain. Potassium 3.4, BUN 2, creatinine 0 point, white blood count 8.5, hemoglobin 11.8, hematocrit 36.1 Constitutional Vitals: Vital Signs Temp Pulse Resp BP Pulse Ox 97.9 F 81 20 153/80 95 11/14/20 07:12 11/14/20 08:00 11/14/20 08:00 11/14/20 07:12 11/14/20 08:00 Period Temp Pulse Resp BP Sys/Manjarrez Pulse Ox Last 24 Hr 97.9 F-98.7 F 74-86 18-20 139-153/74-81 95-97 Intake and Output 11/13/20 11/14/20 11/14/20 21:59 05:59 13:59 Intake Total 1300 1200 450 Output Total 2054 2029 1650 Balance -755 -830 -1200 Weight 186 lb 4.8 oz Intake & Output: Intake & Output 11/13/20 11/14/20 11/14/20 21:59 05:59 13:59 Intake Total 1300 1200 450 Output Total 2054 2029 1650 Balance -755 -830 -1200 Weight 186 lb 4.8 oz Intake: IV 1300 1200 450 Sodium Chloride 0.9% 1,000 ml @ 1000 1000 125 mls/hr IV .Q8H [facility] Rx#: [id number] Output: Gastric Drainage 026 465 3215 Right Nare NG/OG 898 037 2541 Drainage 20 30 Right Abdomen 20 30 Urine Catheter Amount 1325 1300 Void Amount 600 Other: Urine Appearance Clear Clear Clear Uretheral (Schreiber) Clear Urine Color Dark Yellow Bright Yellow Bright Yellow Uretheral (Schreiber) Dark Yellow Urine Odor Strong Normal Normal Stool Color Bright Red Blood Head Head exam: Present atraumatic, normal inspection and normocephalic Eye Eye exam: Present EOMI Pupils: Present normal accommodation and PERRL ENT ENT exam: Present mucous membranes moist and normal oropharynx Respiratory Respiratory exam: Present normal respiratory exam and CTAB; Absent rales, rhonchi and wheezes Cardiovascular Cardiovascular exam: Present normal rate and rhythm, JVD, RRR, +S1 and +S2; Absent gallop GI/Abdominal GI/Abdominal exam: Present normal bowel sounds, soft, distended (Now diffuse distention) and tenderness (Moderate tenderness at the midline incision and around stoma in the left lower quadrant) Extremities Exam Extremities exam: Present full ROM, normal inspection and neurovascular intact; Absent pedal edema Neurological Exam Neurological exam: Present alert, CN II-XII intact, oriented X3 and reflexes normal Psychiatric Psychiatric exam: Present normal mood Skin Skin exam: Present intact A/P Assessment and plan (1) Acute diverticulitis of intestine: Status: Acute (2) COPD (chronic obstructive pulmonary disease): Status: Acute Qualifiers: COPD type: emphysema Emphysema type: panlobular Qualified Code(s): J43.1 - Panlobular emphysema (3) Pelvic abscess: Status: Acute (4) GERD (gastroesophageal reflux disease): Status: Acute Qualifiers: Esophagitis presence: esophagitis presence not specified Qualified Code(s): K21.9 - Gastro-esophageal reflux disease without esophagitis Narrative A/P Narrative: Discontinue nasogastric tube Start clear liquid diet Time Spent With Patient Time: Total time spent is greater than 50% in coordination of care (as documented) at patient's floor/unit and/or counseling patient:
[2020-11-14] MEDS: HYDROmorphone 1 MG/ML SYRINGE IV PRN (13:57)
--- NOTE | 2020-11-14 15:31 | Surgical Pathology Report ---
Histology Microscopic Diagnosis Specimen A- COLON, SIGMOID, RESECTION: --- DIVERTICULITIS WITH ABSCESS FORMATION AND PERFORATION. --- NO DYSPLASIA OR MALIGNANCY IDENTIFIED. --- MARGINS VIABLE. --- FIVE REACTIVE LYMPH NODES (0/5). (EBD:sln) Procedural Impression Colon mass; diverticulitis. Gross Description Received in formalin, designated sigmoid, is a 13.5 cm long, up to 4.8 cm diameter segment of colon with a moderate amount of attached becerra-yellow adipose tissue. One margin is closed by a 3.8 cm long staple line and the opposite margin is open. The external surface has a moderate amount of becerra-white exudate on the central aspect. Additionally located 3.5 cm from the unstapled margin, is an irregular 3.5 x 2.5 cm becerra-brown defect/possible perforation. This defect is located 6.5 cm from the opposite margin. The remaining serosal surface is becerra-pink, smooth and glistening. The specimen is opened along its length and has a minimal amount of becerra-brown fecal material. At the site of previous possible defect is a segment of stenosis which is 2.5 cm long. The wall is sectioned at the area of possible defect to reveal a wall thickness of 1.5 cm. At the site of defect is a plunging diverticula with associated abscess. Located immediately adjacent to this area is a 0.9 cm in greatest dimension possible pericolonic abscess. Multiple additional diverticula are present along its length of the mucosa. The mucosal surface has the usual undulating plicated pattern. No mucosal mass lesions are identified. The wall is on average 0.8-0.5 cm in thickness. Multiple candidate lymph nodes are identified within the mesentery and range up to 0.6 cm in greatest dimension. Hide Dropper sections are submitted as follows: A1 - end margins (stapled end margin inked black); A2-A3 - composite cross section of perforated diverticulum and associated underlying abscess cavity; A4 - additional abscess cavity; A5-A6 - additional diverticula; A7 - candidate lymph nodes. (DMT:adj) Electronically Signed Jade Banda MD, FCAP Electronically Signed 11/14/2020 15:30
[2020-11-15] MEDS: metroNIDAZOLE 500 MG/100 ML BAG IV SCH ×4 (00:49→16:57)
[2020-11-15] MEDS: ONDANSETRON 4 MG/2 ML VIAL IV PRN (03:51)
[2020-11-15] MEDS: ACETAMINOPHEN 1,000 MG/100 ML BAG IV SCH ×4 (05:26→23:26)
[2020-11-15] MEDS: METOCLOPRAMIDE 10 MG/2 ML VIAL IV SCH ×3 (05:26→16:58)
[2020-11-15] MEDS: 0.9 % SODIUM CHLORIDE 1,000 ML IV SCH (06:48)
[2020-11-15 07:50] LABS: ALT/SGPT 10 U/L (<40); AST/SGOT 15 U/L (<32); Albumin 3.1 gm/dL (3.2-5.2); Alkaline Phosphatase 63 U/L (39-117); Bilirubin,Direct < 0.2 mg/dL (<0.3); Bilirubin,Total 0.4 mg/dL (0.1-1.0); Blood Urea Nitrogen < 2 mg/dL (8-23); Calcium 8.8 mg/dL (8.6-10.4); Carbon Dioxide 20 mmol/L (22-30); Chloride 101 mmol/L (96-108); Glomerular Filtration Rate 109; Glucose 109 mg/dL (70-105); Lactate Dehydrogenase 189 U/L (135-225); Phosphorous 2.5 mg/dL (2.5-4.5); Triglycerides 142 mg/dL (<150); Uric Acid 4.6 mg/dL (2.5-8.0)
[2020-11-15] MEDS: ESCITALOPRAM 10 MG TABLET PO SCH (08:26)
[2020-11-15] MEDS: LEVOFLOXACIN 750 MG/150 ML BAG IV SCH (08:26)
[2020-11-15] MEDS: buPROPion 150 MG TAB.XL.24H PO SCH (08:26)
[2020-11-15] MEDS: PROPRANOLOL 60 MG CAP.XL.24H PO SCH (08:26)
[2020-11-15] MEDS ORDERED: MAGNESIUM SULFATE 4 GM/100 ML BAG IV ONE (11:19)
[2020-11-15] MEDS: POTASSIUM PHOSPHATE 40 MEQ in DEXTROSE 5% IN WATER 500 ML IV SCH ×2 (12:11→16:57)
--- NOTE | 2020-11-15 12:35 | Operative Note ---
DATE OF OPERATION: 11/11/2020 PREOPERATIVE DIAGNOSIS: Diverticulitis with abscess. POSTOPERATIVE DIAGNOSIS: Diverticulitis with perforation and sigmoid pelvic abscess. PROCEDURE: Sigmoid colectomy with Jose's procedure. SURGEON: Get Romano M.D. DESCRIPTION OF PROCEDURE: Under general anesthesia, the patient's abdomen was prepped and draped in the sterile field. A time-out procedure was carried out as per protocol. A midline incision was made. Upon entering the peritoneal cavity, there was a large hard mass in the distal sigmoid colon extending into the pelvis and into the left gutter as well as the posterolateral aspect of the uterus and cervix. The proximal bowel was unremarkable. I could not feel the rectum distally. There was no free fluid in the peritoneal cavity. Dissection was started above the large inflammatory mass in the mid sigmoid. Incision was made in the peritoneum and a retroperitoneal dissection was carried out to stay in the free noninfected plane. Using all blunt dissection, the mass was from the lateral pelvic wall. During this dissection, I entered a chronic thick wall abscess. It was adherent to the tissue, it was adherent to the peritoneum laterally, so I stayed close to the bowel and into the cavity with great care. The vessels were not exposed. The ureter was not exposed. Dissection was then continued in the presacral space down to an area where I could feel soft, pliable noninfected rectum. The sigmoid was then scored medially and was divided using a Contour stapler. The mesocolon was divided using the Voyant cautery device. This was then dissected circumferentially until I could feel good tissue anteriorly. The anterior aspect of the rectum was densely adherent to the lower uterine segment and the cervix and vagina; however, they were not intimately involved. Once this was free, I was able to place the rectum on stretch and two right angled intestinal clamps were placed in the normal-appearing tissue and the rectum was divided. The mass including the sigmoid was then passed off. I explored the mass to make sure there was no neoplasm involved. All of the involved tissue appeared to be inflammatory. The tissue had too much inflammation to consider primary anastomosis. The rectal segment was oversewn using running locking 2-0 Vicryl and running locking 2-0 Prolene. Irrigation was carried out. The entire pelvis was irrigated. At this point, the residual sigmoid and descending colon were further mobilized proximally in order to get enough length for colostomy. Once this was done, the bowel was lengthened enough to have a good length for the stoma without compromise. The sponges and towels were taken out of the peritoneal cavity and sponge, needle, instrument, and blade counts were carried out. The backtable was used and the stoma was matured suturing the wall of the colon to the peritoneum circumferentially. The lateral peritoneum was sutured to the mesocolon to prevent herniation. The abdomen was then closed using running #1 Prolene on the fascia, 2-0 Monocryl in the subcutaneous tissue and regla on the skin. The midline incision was covered and the wall of the colon was then sutured to the anterior rectus fascia using multiple interrupted sutures of 3-0 silk. The colon was opened and the end of the colon was sutured to the dermis using running locking 2-0 Monocryl. A stoma appliance was fashioned and was placed. Tegaderm was placed over the incision. The patient tolerated the procedure well. She was awakened, transferred to a bed and taken to the postanesthetic care unit in stable, satisfactory condition. LCS:corwin Job ID: [id number] Doc ID: [id number] Get Romano M.D.
--- NOTE | 2020-11-15 13:31 | General Surgery Progress Note ---
SUBJECTIVE Subjective Patient information: Note initiated : 11/15/20 at 1:27 pm Service Date, if different from initiated Date: [] Patient: Liya Song 65 y/o F admitted on 11/09/20 for Esophogogastroduodenoscopy and Colonoscopy. Chief Complaint: [] Principal diagnosis: Perforated diverticulitis with abscess Interval history: Patient is continuing to improve. She has been more active. She is somewhat reticent to take care of her stoma but she has adjusted to the idea for the short-term. She is tolerating full liquids and her stoma is emptying appropriately. Her nausea has resolved. Her incision and stoma look good. She has been afebrile Constitutional Vitals: Vital Signs Temp Pulse Resp BP Pulse Ox 98.1 F 77 20 140/84 97 11/15/20 12:00 11/15/20 12:00 11/15/20 12:00 11/15/20 12:00 11/15/20 12:00 Period Temp Pulse Resp BP Sys/Manjarrez Pulse Ox Last 24 Hr 98.0 F-98.7 F 67-84 12-20 137-180/77-93 95-97 Intake and Output 11/14/20 11/15/20 11/15/20 21:59 05:59 13:59 Intake Total 1700 300 350 Output Total 1485 1885 350 Balance 215 -1585 0 Weight 179 lb Intake & Output: Intake & Output 11/14/20 11/15/20 11/15/20 21:59 05:59 13:59 Intake Total 1700 300 350 Output Total 1485 1885 350 Balance 215 -1585 0 Weight 179 lb Intake: IV 1200 200 350 Sodium Chloride 0.9% 1,000 ml @ 1000 125 mls/hr IV .Q8H [facility] Rx#: [id number] Oral 500 100 Output: Gastric Drainage 350 Right Nare NG/OG 350 Drainage 55 35 Right Abdomen 55 35 Void Amount 1000 1850 350 Stool 80 0 Other: Urine Appearance Clear Clear Clear Urine Color Bright Yellow Bright Yellow Bright Yellow Urine Odor Normal Normal Normal Stool Size Small Stool Color Brown Brown Stool Consistency Soft Soft Liquid Head Head exam: Present atraumatic, normal inspection and normocephalic Eye Eye exam: Present EOMI Pupils: Present normal accommodation and PERRL ENT ENT exam: Present mucous membranes moist and normal oropharynx Neck Neck exam: Present full ROM and normal inspection; Absent lymphadenopathy and tenderness Respiratory Respiratory exam: Present normal respiratory exam and CTAB; Absent rales, rhonchi and wheezes Cardiovascular Cardiovascular exam: Present normal rate and rhythm, JVD, RRR, +S1 and +S2; Absent gallop GI/Abdominal GI/Abdominal exam: Present normal bowel sounds, soft, distended (Now diffuse distention) and tenderness (Moderate tenderness at the midline incision and around stoma in the left lower quadrant) Extremities Exam Extremities exam: Present full ROM, normal inspection and neurovascular intact; Absent pedal edema Neurological Exam Neurological exam: Present alert, CN II-XII intact, oriented X3 and reflexes normal Psychiatric Psychiatric exam: Present normal mood A/P Assessment and plan (1) Pelvic abscess: Status: Acute (2) Acute diverticulitis of intestine: Status: Acute (3) GERD (gastroesophageal reflux disease): Status: Acute Qualifiers: Esophagitis presence: esophagitis presence not specified Qualified Code(s): K21.9 - Gastro-esophageal reflux disease without esophagitis Narrative A/P Narrative: Advance to GI soft diet Saline lock IV Plan for discharge tomorrow with home health Time Spent With Patient Time: Total time spent is greater than 50% in coordination of care (as documented) at patient's floor/unit and/or counseling patient:
[2020-11-16] MEDS: metroNIDAZOLE 500 MG/100 ML BAG IV SCH ×3 (00:02→12:32)
[2020-11-16] MEDS: METOCLOPRAMIDE 10 MG/2 ML VIAL IV SCH ×3 (00:02→12:28)
[2020-11-16] MEDS: ACETAMINOPHEN 1,000 MG/100 ML BAG IV SCH ×2 (05:46→13:49)
[2020-11-16] MEDS: ESCITALOPRAM 10 MG TABLET PO SCH (10:54)
[2020-11-16] MEDS: PROPRANOLOL 60 MG CAP.XL.24H PO SCH (10:54)
[2020-11-16] MEDS: buPROPion 150 MG TAB.XL.24H PO SCH (10:54)
[2020-11-16] MEDS: LEVOFLOXACIN 750 MG/150 ML BAG IV SCH (10:55)
--- NOTE | 2020-11-16 12:06 | Discharge Summary ---
Discharge Provider Provider Patient information: Note initiated : 11/16/20 at 11:53 am Service Date, if different from initiated Date: [] Patient: Liya Song 65 y/o F admitted on 11/09/20 for Esophogogastroduodenoscopy and Colonoscopy. Chief Complaint: [] Date of admission: 11/09/20 16:02 Discharge date: 11/16/20 Primary care physician: Nehal Sepulveda PA-C Admitting clinician: Get Romano Attending physician on admission: Get Romano Consults: 11/09/20 16:55 Consult to Physician [CONS] Routine Comment: Consulting Provider: Get Romano Reason For Exam: Physician to Consult Attending physician on discharge: Get Romano Discharging clinician: Get Romano COURSE Hospital Course Hospital course: 65-year-old female admitted on 09 November for sigmoid diverticulitis with perforation and abscess. The patient had been symptomatic and was having increasing difficulty with bowel movements. She underwent colonoscopy and was found to have a tight stricture in her distal sigmoid and another area of the side of the sigmoid that was a large inflammatory cavity. Patient was explored and was found to have perforated sigmoid diverticulitis with abscess. On 11 November she underwent laparotomy with sigmoid colectomy and Hughes's procedure. She has gradually improved and is now tolerating diet. Her stoma is functioning appropriately and her incision is healing uneventfully. She has some minimal discomfort and she states that she has good understanding about the potential need for emergency colostomy care. Patient is discharged home with the assistance of home health primarily for teaching of care for her stoma. Discharge diagnosis: Acute diverticulitis with perforation Secondary discharge diagnosis: Pelvic abscess due to sigmoid perforation Reason for admission: Pelvic abscess Procedures: Sigmoid colectomy with Hughes's procedure Pertinent studies/significant findings: CT of abdomen and pelvis with contrast Complications: None Time Spent with Patient Time attestation: Total time spent providing and/or coordinating discharge services: Physical Examination Vital Signs Vital signs: Temp Pulse Resp BP Pulse Ox 97.1 F 75 20 146/81 96 11/16/20 08:00 11/16/20 08:00 11/16/20 08:00 11/16/20 08:00 11/16/20 08:00 General physical appearance General physical exam: well developed, well nourished, no distress and no pain Eyes Eye exam: PERRL and normal ocular movement ENT ENT exam: normal mucosa and no congestion; negative no hearing loss Head Head exam IM: Present atraumatic, normal inspection and normocephalic Neck Neck exam: no masses, no bruits, trachea midline, no lymphadenopathy and no venous distension Cardiovascular Cardiovascular exam IM: Present normal rate and rhythm, RRR, +S1 and +S2; Absent JVD, systolic murmur and tachycardia Respiratory Respiratory exam: normal expansion, normal respiratory effort and clear to auscultation Abdomen Abdomen: Present soft, non tender, bowel sounds, surgical scars (Incision looks good and stoma is healthy) and distended; Absent masses and guarding Integumentary Integumentary: Present no rash, no growths and no abnormal pigmentation Neurologic Neurologic: Present normal coordination and normal sensation Musculoskeletal Musculoskeletal: Present normal gait and normal posture Psychiatric Psychiatric: Present oriented to time, oriented to person, oriented to place, speech is normal and memory intact Discharge Plan Patient/Caregiver Discharge Instructions Activity: ambulate only with your walker and increase activity as tolerated Diet: Dysphagia Level 7 Easy to Chew Foods Instructions: Colostomy Care (DC), Daniel-Singh Drain Care (DC), Colectomy (DC) Activity Restrictions/Additional Instructions: You will have [facility] [phone]. Prescriptions: Continued bupropion HCl 150 mg tablet extended release 24 hr 150 mg PO QDAY Qty: 90 RF: 3 escitalopram oxalate 10 mg tablet 10 mg PO DAILY Qty: 90 RF: 3 losartan 50 mg tablet 50 mg PO QDAY Qty: 90 RF: 3 rosuvastatin 20 mg tablet 20 mg PO QDAY Qty: 90 RF: 2 propranolol 60 mg capsule,extended release 24 hr 60 mg PO QDAY Qty: 30 RF: 3 loratadine [Claritin] 10 mg tablet 10 mg PO QDAY Qty: 30 RF: 2 pantoprazole 40 mg tablet,delayed release (DR/EC) 40 mg PO QDAY Qty: 60 RF: 0 Calcium 600 + D(3) 600 mg calcium- 200 unit Capsule 600 cap PO DAILY RF: 0 Other Ambulatory Orders: Walker (ONCE) Location: None Selected Ordered By: Get Romano Follow Up Plan Follow up with: Get Romano MD [Physician] - 11/28/20 9:15 am Patient Disposition: Home Health Service Prognosis: Good Rehab Potential: Good I certify that the patient requires SNF services: No Overall status at discharge: patient is progressing back to baseline Discharge Orders: Discharge Order (Routine); Ordered 11/16/20 Ordered By: Get Romano Pending Pending Pending: Resuscitation Status Full Code Diet GI Soft/Transitional Start SatNov 15 1337 Bupropion HCl (Wellbutrin Xl) 150 mg PO QDAY [facility] Last Admin: 11/16/20 10:54 Dose: 150 mg Documented by: Admin: 11/15/20 08:26 Dose: 150 mg Documented by: Admin: 11/14/20 08:01 Dose: 150 mg Documented by: Admin: 11/13/20 09:35 Dose: 150 mg Documented by: Admin: 11/12/20 10:39 Dose: 150 mg Documented by: BETY Escitalopram Oxalate (Lexapro) 10 mg PO DAILY [facility] Last Admin: 11/16/20 10:54 Dose: 10 mg Documented by: Admin: 11/15/20 08:26 Dose: 10 mg Documented by: Admin: 11/14/20 08:00 Dose: 10 mg Documented by: Admin: 11/13/20 09:35 Dose: 10 mg Documented by: Admin: 11/12/20 10:40 Dose: 10 mg Documented by: BETY Hydromorphone HCl (Dilaudid) 1 mg IV Q2HP PRN; Protocol PRN Reason: Per Pain Protocol Last Admin: 11/14/20 13:57 Dose: 1 mg Documented by: Admin: 11/13/20 21:18 Dose: 1 mg Documented by: Admin: 11/12/20 19:23 Dose: 1 mg Documented by: Admin: 11/12/20 10:48 Dose: 1 mg Documented by: Admin: 11/11/20 20:47 Dose: 1 mg Documented by: LISA Levofloxacin (Levaquin) 750 mg in 150 mls @ 100 mls/hr IV DAILY [facility]; Protocol Last Admin: 11/16/20 10:55 Dose: 100 mls/hr Documented by: Infusion: 11/15/20 10:34 Dose: 0 mls/hr Documented by: Admin: 11/15/20 08:26 Dose: 100 mls/hr Documented by: Infusion: 11/14/20 11:56 Dose: 0 mls/hr Documented by: Admin: 11/14/20 08:01 Dose: 100 mls/hr Documented by: Infusion: 11/13/20 11:10 Dose: 0 mls/hr Documented by: Admin: 11/13/20 09:38 Dose: 100 mls/hr Documented by: Infusion: 11/12/20 12:15 Dose: 0 mls/hr Documented by: Admin: 11/12/20 10:41 Dose: 100 mls/hr Documented by: BETY Metronidazole (Flagyl) 500 mg in 100 mls @ 100 mls/hr IV Q6H [facility]; Protocol Last Admin: 11/16/20 07:04 Dose: 100 mls/hr Documented by: Infusion: 11/16/20 01:02 Dose: 100 mls/hr Documented by: Admin: 11/16/20 00:02 Dose: 100 mls/hr Documented by: Infusion: 11/15/20 17:57 Dose: 100 mls/hr Documented by: Admin: 11/15/20 16:57 Dose: 100 mls/hr Documented by: Infusion: 11/15/20 12:25 Dose: 100 mls/hr Documented by: Admin: 11/15/20 11:25 Dose: 100 mls/hr Documented by: Infusion: 11/15/20 07:21 Dose: 100 mls/hr Documented by: Admin: 11/15/20 06:21 Dose: 100 mls/hr Documented by: Infusion: 11/15/20 01:49 Dose: 100 mls/hr Documented by: Admin: 11/15/20 00:49 Dose: 100 mls/hr Documented by: Infusion: 11/14/20 18:11 Dose: 100 mls/hr Documented by: Admin: 11/14/20 17:11 Dose: 100 mls/hr Documented by: Infusion: 11/14/20 12:30 Dose: 0 mls/hr Documented by: Admin: 11/14/20 11:22 Dose: 100 mls/hr Documented by: Infusion: 11/14/20 07:51 Dose: 0 mls/hr Documented by: Admin: 11/14/20 06:32 Dose: 100 mls/hr Documented by: Infusion: 11/14/20 01:26 Dose: 100 mls/hr Documented by: Admin: 11/14/20 00:26 Dose: 100 mls/hr Documented by: Infusion: 11/13/20 19:08 Dose: 0 mls/hr Documented by: GUSTAVO Cosigned by: [email or web address] Admin: 11/13/20 18:08 Dose: 100 mls/hr Documented by: Infusion: 11/13/20 14:15 Dose: 0 mls/hr Documented by: Admin: 11/13/20 13:14 Dose: 100 mls/hr Documented by: Infusion: 11/13/20 08:45 Dose: 0 mls/hr Documented by: Admin: 11/13/20 07:44 Dose: 100 mls/hr Documented by: Infusion: 11/13/20 01:10 Dose: 100 mls/hr Documented by: Admin: 11/13/20 00:10 Dose: 100 mls/hr Documented by: Infusion: 11/12/20 18:45 Dose: 100 mls/hr Documented by: Admin: 11/12/20 17:45 Dose: 100 mls/hr Documented by: Infusion: 11/12/20 14:15 Dose: 0 mls/hr Documented by: Admin: 11/12/20 13:15 Dose: 100 mls/hr Documented by: Infusion: 11/12/20 08:10 Dose: 0 mls/hr Documented by: Admin: 11/12/20 07:10 Dose: 100 mls/hr Documented by: Infusion: 11/12/20 01:10 Dose: 0 mls/hr Documented by: Admin: 11/12/20 00:09 Dose: 100 mls/hr Documented by: Infusion: 11/11/20 21:50 Dose: 0 mls/hr Documented by: Admin: 11/11/20 20:47 Dose: 100 mls/hr Documented by: Infusion: 11/11/20 15:28 Dose: 0 mls/hr Documented by: Admin: 11/11/20 14:28 Dose: 100 mls/hr Documented by: VILMA Acetaminophen (Ofirmev) 1,000 mg in 100 mls @ 200 mls/hr IV Q6H [facility]; Protocol Last Admin: 11/16/20 05:46 Dose: 200 mls/hr Documented by: Infusion: 11/15/20 23:56 Dose: 200 mls/hr Documented by: Admin: 11/15/20 23:26 Dose: 200 mls/hr Documented by: Infusion: 11/15/20 17:44 Dose: 0 mls/hr Documented by: Admin: 11/15/20 16:57 Dose: 200 mls/hr Documented by: Infusion: 11/15/20 11:55 Dose: 200 mls/hr Documented by: Admin: 11/15/20 11:25 Dose: 200 mls/hr Documented by: Infusion: 11/15/20 06:48 Dose: 0 mls/hr Documented by: Admin: 11/15/20 05:26 Dose: 200 mls/hr Documented by: Infusion: 11/15/20 00:49 Dose: 0 mls/hr Documented by: Admin: 11/14/20 23:57 Dose: 200 mls/hr Documented by: Infusion: 11/14/20 17:52 Dose: 0 mls/hr Documented by: Admin: 11/14/20 17:11 Dose: 200 mls/hr Documented by: Infusion: 11/14/20 11:55 Dose: 0 mls/hr Documented by: Admin: 11/14/20 11:21 Dose: 200 mls/hr Documented by: Infusion: 11/14/20 07:17 Dose: 0 mls/hr Documented by: Admin: 11/14/20 05:36 Dose: 200 mls/hr Documented by: Infusion: 11/14/20 00:22 Dose: 200 mls/hr Documented by: Admin: 11/13/20 23:52 Dose: 200 mls/hr Documented by: Infusion: 11/13/20 17:43 Dose: 200 mls/hr Documented by: Admin: 11/13/20 17:13 Dose: 200 mls/hr Documented by: Infusion: 11/13/20 12:15 Dose: 0 mls/hr Documented by: Admin: 11/13/20 11:44 Dose: 200 mls/hr Documented by: Infusion: 11/13/20 06:35 Dose: 0 mls/hr Documented by: Admin: 11/13/20 06:02 Dose: 200 mls/hr Documented by: Infusion: 11/13/20 00:40 Dose: 200 mls/hr Documented by: Admin: 11/13/20 00:10 Dose: 200 mls/hr Documented by: Infusion: 11/12/20 17:40 Dose: 0 mls/hr Documented by: Admin: 11/12/20 17:08 Dose: 200 mls/hr Documented by: Infusion: 11/12/20 13:00 Dose: 0 mls/hr Documented by: Admin: 11/12/20 12:28 Dose: 200 mls/hr Documented by: Infusion: 11/12/20 06:25 Dose: 0 mls/hr Documented by: Admin: 11/12/20 05:55 Dose: 200 mls/hr Documented by: Infusion: 11/12/20 00:05 Dose: 0 mls/hr Documented by: Admin: 11/11/20 23:33 Dose: 200 mls/hr Documented by: Infusion: 11/11/20 20:30 Dose: 0 mls/hr Documented by: Admin: 11/11/20 19:07 Dose: 200 mls/hr Documented by: LISA Metoclopramide HCl (Reglan) 10 mg IV Q6 [facility] Last Admin: 11/16/20 05:47 Dose: 10 mg Documented by: [email or web address] Admin: 11/16/20 00:02 Dose: 10 mg Documented by: [email or web address] Admin: 11/15/20 16:58 Dose: 10 mg Documented by: Admin: 11/15/20 11:26 Dose: 10 mg Documented by: Admin: 11/15/20 05:26 Dose: 10 mg Documented by: Admin: 11/14/20 23:57 Dose: 10 mg Documented by: Admin: 11/14/20 17:10 Dose: 10 mg Documented by: Admin: 11/14/20 11:22 Dose: 10 mg Documented by: Admin: 11/14/20 05:35 Dose: 10 mg Documented by: Admin: 11/13/20 23:52 Dose: 10 mg Documented by: Admin: 11/13/20 17:11 Dose: 10 mg Documented by: BETY Ondansetron HCl (Zofran) 4 mg IV Q6HP PRN PRN Reason: Nausea And Vomiting Last Admin: 11/15/20 03:51 Dose: 4 mg Documented by: Admin: 11/13/20 08:32 Dose: 4 mg Documented by: Admin: 11/11/20 18:56 Dose: 4 mg Documented by: LISA Propranolol HCl (Inderal La) 60 mg PO QDAY [facility] Last Admin: 11/16/20 10:54 Dose: 60 mg Documented by: Admin: 11/15/20 08:26 Dose: 60 mg Documented by: Admin: 11/14/20 08:01 Dose: 60 mg Documented by: Admin: 11/13/20 09:35 Dose: 60 mg Documented by: Admin: 11/12/20 12:11 Dose: Not Given Documented by: BETY Shift Summary 11/16/20 03:50 Shift Summary by Antonella Lopez medical status, FULL code, admitted for colon mass, on 11/11 had lap. with sigmoid resection with colostomy, A&OX4, VSS, RA, voids per BR clear yellow urine, colostomy with green output and flatus, IMC to Rt. lower abdomen with minimal serous output, 20g RH SL, SBA, FWW when amb. in [place], pleasant and cooperative, plans to D/C home today with home health received [facility] rider x2 for total of 80meq of K and mag. rider yesterday Initialized on 11/16/20 03:50 - END OF NOTE
== END 2020-11-16 13:25 | disposition home health service (06) | DRG 329 ==
LOC: SSSU 13:08 → MEDSUR 16:02
PROVIDERS: ADMIT Family Medicine Adult Medicine; ATTEND Family Medicine Adult Medicine

== ENCOUNTER 2021-03-29 06:08 | Inpatient (IN) ==
--- NOTE | 2021-03-23 16:18 | EKG ---
[facility] Test Date: 2021-03-23 Pat Name: iLya Song Department: RT Room: Gender: Female Paralegal Legal Secretary: : 1955 Requested By: Get Romano Order Number: [id number] Reading MD: Shun Lopez M.D. Measurements Intervals [place] Rate: 73 P: 51 MS: 148 QRS: 11 QRSD: 94 T: 17 QT: 412 QTc: 454 Interpretive Statements SINUS RHYTHM NON-SPECIFIC ST-T CHANGES Since previous ECG of 11-09-2020, SHORTER QTc, Electronically Signed On 03-23-2021 16:17:45 PDT by Shun Lopez M.D. /[facility] [place]/M0/[id number]
[2021-03-23 17:35] LABS: Basophils # (Auto) 0.06 K/mcL (0.00-0.20); Eosinophils # (Auto) 0.11 K/mcL (0.00-0.70); Eosinophils % (Auto) 1.9 % (0.0-7.0); Hematocrit 43.7 % (36.0-48.0); Hemoglobin 14.3 g/dL (12.0-15.0); Lymphocytes # (Auto) 2.17 K/mcL (1.50-4.80); Lymphocytes % (Auto) 37.9 % (15.0-49.0); Mean Cell Volume 100.2 fL (80.0-100.0); Mean Corpuscular HGB Conc 32.7 g/dL (31.0-36.0); Mean Platelet Volume 10.1 fL (7.4-10.4); Monocytes # (Auto) 0.55 K/mcL (0.10-0.90); Monocytes % (Auto) 9.6 % (1.0-12.0); Neutrophils % (Auto) 49.6 % (38.0-78.0); Platelet Count 249 K/mcL (140-440); RBC 4.36 M/mcL (4.00-5.20); Red Cell Distribution Width 13.8 % (11.5-14.5); WBC 5.7 K/mcL (4.5-11.0)
[2021-03-23 18:01] LABS: INR 0.9 (0.9-1.1); Partial Thromboplastin Time 34.8 sec (20.0-37.0); Prothrombin Time 12.9 sec (11.9-14.5)
--- NOTE | 2021-03-23 18:08 | XRay Report ---
HISTORY: Preop FINDINGS: The lungs are clear. The heart, mediastinum, go and pleura are normal. There has been no significant change since 11/29/20. IMPRESSION: Normal chest. Interpreted and Authenticated by: Yared Moon 03/23/21
[2021-03-23 21:11] LABS: ALT/SGPT 20 U/L (<40); AST/SGOT 24 U/L (<32); Albumin 4.1 gm/dL (3.2-5.2); Albumin/Globulin Ratio 1.5 (1.0-2.3); Alkaline Phosphatase 87 U/L (39-117); Bilirubin,Total 0.8 mg/dL (0.1-1.0); Blood Urea Nitrogen 8 mg/dL (8-23); Calcium 9.8 mg/dL (8.6-10.4); Carbon Dioxide 30 mmol/L (22-30); Chloride 101 mmol/L (96-108); Globulin 2.8 gm/dL (2.2-3.7); Glomerular Filtration Rate 95; Glucose 102 mg/dL (70-105)
[~2021-03-29 06:08] MED LIST changes: +IPRATROPIUM/ALBUTEROL 3 ML AMPUL.NEB NEB PRN; -KETAMINE HCL 50 MG/ML ML IV PRN; +LEVOFLOXACIN 750 MG/150 ML BAG IV SCH; -MIDAZOLAM 2 MG/2 ML VIAL IV SCH; -PROPOFOL 200 MG/20 ML VIAL IV SCH; +metroNIDAZOLE 500 MG/100 ML BAG IV SCH
[2021-03-29] MEDS ORDERED: SCOPOLAMINE 1 PATCH PATCH TOPICAL PRN (06:15)
[2021-03-29] MEDS ORDERED: ROPIVACAINE HCL/PF 20 ML VIAL IJ ONE (07:40)
[2021-03-29] MEDS ORDERED: KETAMINE 50 MG/ML ML ONE (07:46)
[2021-03-29] MEDS ORDERED: SUGAMMADEX SODIUM 200 MG/2 ML VIAL IV ONE (07:46)
[2021-03-29] MEDS ORDERED: LIDOCAINE HCL/PF 100 MG/5 ML SYRINGE IV ONE (07:46)
[2021-03-29] MEDS ORDERED: SUCCINYLCHOLINE 20 MG/ML ML IV ONE (07:46)
[2021-03-29] MEDS ORDERED: MAGNESIUM SULFATE 2 GM/50 ML BAG IV ONE (07:46)
[2021-03-29] MEDS ORDERED: PROPOFOL 200 MG/20 ML VIAL IV ONE (07:46)
[2021-03-29] MEDS ORDERED: fentaNYL 100 MCG/2 ML VIAL IV ONE (07:46)
[2021-03-29] MEDS ORDERED: FAMOTIDINE/PF 20 MG/2 ML VIAL IV ONE (07:46)
[2021-03-29] MEDS ORDERED: ONDANSETRON 4 MG/2 ML VIAL ONE (07:46)
[2021-03-29] MEDS ORDERED: ROCURONIUM 10 MG/ML ML IV ONE (07:46)
[2021-03-29] MEDS ORDERED: ALBUMIN HUMAN 25 GM/100 ML BAG IV ONE ×2 (07:46→11:56)
[2021-03-29] MEDS ORDERED: PROMETHAZINE 25 MG/ML VIAL ONE (07:46)
[2021-03-29] MEDS ORDERED: DEXAMETHASONE 10 MG/ML VIAL ONE (07:46)
[2021-03-29] MEDS ORDERED: PHENYLEPHRINE 10 MG/ML VIAL ONE (07:46)
[2021-03-29] MEDS ORDERED: ePHEDrine 50 MG/ML AMPUL IV ONE (07:46)
[2021-03-29] MEDS ORDERED: HYDROmorphone 1 MG/ML SYRINGE ONE (07:46)
[2021-03-29] MEDS ORDERED: OPIUM/BELLADONNA ALKALOIDS 60 MG SUPP.RECT PR PRN (13:02)
[2021-03-29] MEDS ORDERED: ONDANSETRON 4 MG/2 ML VIAL IV PRN (13:02)
[2021-03-29] MEDS ORDERED: ACETAMINOPHEN 1,000 MG/100 ML BAG IV ONE (13:02)
[2021-03-29] MEDS ORDERED: METOPROLOL TARTRATE 5 MG/5 ML VIAL IV PRN (13:02)
[2021-03-29] MEDS ORDERED: ePHEDrine 50 MG/ML AMPUL IV PRN (13:02)
[2021-03-29] MEDS ORDERED: PROMETHAZINE 25 MG/ML VIAL IV PRN (13:02)
[2021-03-29] MEDS ORDERED: NALOXONE HCL 0.4 MG/ML VIAL IV PRN (13:02)
[2021-03-29] MEDS ORDERED: fentaNYL 100 MCG/2 ML VIAL IV PRN (13:02)
[2021-03-29] MEDS ORDERED: IPRATROPIUM/ALBUTEROL 3 ML AMPUL.NEB NEB PRN (13:02)
[2021-03-29] MEDS ORDERED: ATROPINE SULFATE 0.4 MG/ML VIAL IV PRN (13:02)
[2021-03-29] MEDS ORDERED: FLUMAZENIL 0.1 MG/ML ML IV PRN (13:02)
[2021-03-29] MEDS ORDERED: HYDROmorphone 0.5 MG/0.5 ML SYRINGE IV PRN (13:02)
[2021-03-29] MEDS ORDERED: METHOCARBAMOL 1,000 MG/10 ML VIAL IV PRN (13:02)
--- NOTE | 2021-03-29 13:06 | Brief Operative Note ---
Brief Operative Note Date of procedure: 03/29/21 Pre-op diagnosis: colostomy status Post-op diagnosis: other (colostomy status) Procedure: colostomy takedown Grafts/Implants: No (#10 BLke drain x1) Anesthesia: GETA Findings: extensive pelvic and intraabdominal adhesions;shrunken ,fibrotic rectal stump Complications: none Surgeon: Get Romano Estimated blood loss (cc): 400 Specimens Removed/Pathology: other (end of colostomy) Condition: stable Disposition: PACU
[2021-03-29] MEDS ORDERED: LACTATED RINGERS 1,000 ML IV SCH (13:15)
[2021-03-29] MEDS ORDERED: hydrALAZINE 20 MG/ML VIAL IV ONE (13:38)
[2021-03-29] MEDS: LACTATED RINGERS 1,000 ML IV SCH ×2 (14:21→18:46)
[2021-03-29] MEDS: 0.9 % SODIUM CHLORIDE 10 ML SYRINGE IV SCH (14:21)
[2021-03-29] MEDS: ACETAMINOPHEN 1,000 MG/100 ML BAG IV SCH (18:45)
[2021-03-29] MEDS ORDERED: BENZOCAINE 1 SPRAY BOTTLE TOPICAL PRN (19:40)
[2021-03-29] MEDS: DOCUSATE SODIUM 100 MG CAPSULE PO SCH (21:08)
[2021-03-29] MEDS: SENNOSIDES 1 TABLET PO SCH (21:08)
[2021-03-30] MEDS: 0.9 % SODIUM CHLORIDE 10 ML SYRINGE IV SCH ×5 (01:26→22:47)
[2021-03-30] MEDS: ACETAMINOPHEN 1,000 MG/100 ML BAG IV SCH ×3 (01:30→12:22)
[2021-03-30] MEDS: LACTATED RINGERS 1,000 ML IV SCH ×3 (03:53→16:19)
[2021-03-30] MEDS: ONDANSETRON 4 MG/2 ML VIAL IV PRN (05:32)
[2021-03-30] MEDS: HYDROmorphone 1 MG/ML SYRINGE IV PRN ×4 (06:00→20:46)
[2021-03-30 06:13] LABS: Hematocrit 31.5 % (36.0-48.0); Hemoglobin 10.3 g/dL (12.0-15.0); Mean Cell Volume 99.4 fL (80.0-100.0); Mean Corpuscular HGB Conc 32.7 g/dL (31.0-36.0); Mean Platelet Volume 10.4 fL (7.4-10.4); Platelet Count 218 K/mcL (140-440); RBC 3.17 M/mcL (4.00-5.20); Red Cell Distribution Width 13.4 % (11.5-14.5)
[2021-03-30 06:33] LABS: ALT/SGPT 11 U/L (<40); AST/SGOT 16 U/L (<32); Albumin 3.3 gm/dL (3.2-5.2); Albumin/Globulin Ratio 1.6 (1.0-2.3); Alkaline Phosphatase 58 U/L (39-117); Bilirubin,Direct 0.3 mg/dL (<0.3); Bilirubin,Total 1.7 mg/dL (0.1-1.0); Blood Urea Nitrogen 9 mg/dL (8-23); Calcium 8.6 mg/dL (8.6-10.4); Carbon Dioxide 25 mmol/L (22-30); Chloride 100 mmol/L (96-108); Glomerular Filtration Rate 101; Glucose 129 mg/dL (70-105); Lactate Dehydrogenase 174 U/L (135-225); Phosphorous 3.1 mg/dL (2.5-4.5); Triglycerides 85 mg/dL (<150); Uric Acid 2.5 mg/dL (2.5-8.0)
[2021-03-30 07:25] LABS: Band Neutrophils % 7 % (0-10); Lymphocytes % 8 % (15-49); Monocytes % (Manual) 6 % (1-12); Platelet Estimate NORMAL (Normal); RBC Morphology NORMAL (Normal); Reactive Lymphocytes 3 % (0-2); Segmented Neutrophils % 76 % (38-78)
[2021-03-30] MEDS: DOCUSATE SODIUM 100 MG CAPSULE PO SCH ×2 (09:15→20:46)
[2021-03-30] MEDS: LEVOFLOXACIN 500 MG/100 ML BAG IV SCH (09:16)
--- NOTE | 2021-03-30 13:13 | General Surgery Progress Note ---
SUBJECTIVE Subjective Patient information: Note initiated : 03/30/21 at 1:09 pm Service Date, if different from initiated Date: [] Patient: Liya Song 65 y/o F admitted on 03/29/21 for Colostomy Closure. Chief Complaint: [] Principal diagnosis: Colostomy closure Interval history: Patient is stable. Her pain is controlled. She denies nausea. White blood count 11, hemoglobin 10.3, hematocrit 31.9 creatinine 0.5. Incision looks good. No complaints of nausea. No flatus so far Constitutional Vitals: Vital Signs Temp Pulse Resp BP Pulse Ox 98.3 F 63 18 109/63 97 03/30/21 12:00 03/30/21 12:00 03/30/21 12:00 03/30/21 12:00 03/30/21 12:00 Period Temp Pulse Resp BP Sys/Manjarrez Pulse Ox Last 24 Hr 97.6 F-98.7 F 63-86 12-20 102-169/63-93 94-98 Intake and Output 03/29/21 03/30/21 03/30/21 21:59 05:59 13:59 Intake Total 802 1100 200 Output Total 290 705 Balance 512 395 200 Weight 183 lb 183 lb Patient Weight 03/31/21 05:59 Weight 183 lb Intake & Output: Intake & Output 03/29/21 03/30/21 03/30/21 21:59 05:59 13:59 Intake Total 802 1100 200 Output Total 290 705 Balance 512 395 200 Weight 183 lb 183 lb Intake: IV 652 1100 200 Lactated Ringers 1,000 ml @ 107 124 4552 mls/hr IV .Q8H [facility] Rx#: [id number] IV - Manual Only 150 Output: Gastric Drainage 160 Right Nare 160 Drainage 65 20 Right Lower Abdomen 65 20 Urine Catheter Amount 225 525 Other: Urine Appearance Cloudy Clear Uretheral (Schreiber) Clear Clear Urine Color Dark Yellow Bright Yellow Uretheral (Schreiber) Bright Yellow Bright Yellow Urine Odor Strong Normal Head Head exam: Present atraumatic, normal inspection and normocephalic Eye Eye exam: Present EOMI Pupils: Present normal accommodation and PERRL ENT ENT exam: Present mucous membranes moist and normal oropharynx Neck Neck exam: Present full ROM and normal inspection; Absent lymphadenopathy and tenderness Respiratory Respiratory exam: Present normal respiratory exam and CTAB; Absent rales, rhonchi and wheezes Cardiovascular Cardiovascular exam: Present normal rate and rhythm, JVD, RRR, +S1 and +S2; Absent gallop GI/Abdominal GI/Abdominal exam: Present diminished bowel sounds (Hypoactive bowel sounds), distended (Moderate distention) and tenderness (Moderate tenderness of the incision); Absent guarding Additional comments: MIC drainage is slightly bloody Extremities Exam Extremities exam: Present full ROM, normal inspection and neurovascular intact; Absent pedal edema Neurological Exam Neurological exam: Present alert, CN II-XII intact, oriented X3 and reflexes normal Psychiatric Psychiatric exam: Present normal mood A/P Assessment and plan (1) Colostomy status: Status: Acute (2) COPD (chronic obstructive pulmonary disease): Status: Acute Qualifiers: COPD type: emphysema Emphysema type: panlobular Qualified Code(s): J43.1 - Panlobular emphysema (3) GERD (gastroesophageal reflux disease): Status: Acute Qualifiers: Esophagitis presence: esophagitis presence not specified Qualified Code(s): K21.9 - Gastro-esophageal reflux disease without esophagitis Narrative A/P Narrative: Patient is progressing very well. She denies any nausea. She has not had flatus so far. MIC drainage from the pelvis is serosanguineous. Time Spent With Patient Time: Total time spent is greater than 50% in coordination of care (as documented) at patient's floor/unit and/or counseling patient:
[2021-03-30] MEDS: SENNOSIDES 1 TABLET PO SCH (20:46)
[2021-03-31] MEDS: HYDROmorphone 1 MG/ML SYRINGE IV PRN ×8 (00:15→20:49)
[2021-03-31] MEDS: LACTATED RINGERS 1,000 ML IV SCH ×5 (00:25→18:53)
[2021-03-31] MEDS: 0.9 % SODIUM CHLORIDE 10 ML SYRINGE IV SCH ×3 (05:37→22:47)
[2021-03-31] MEDS: DOCUSATE SODIUM 100 MG CAPSULE PO SCH ×2 (08:25→20:52)
[2021-03-31 08:55] LABS: Basophils # (Auto) 0.04 K/mcL (0.00-0.20); Basophils % (Auto) 0.4 % (0.0-2.0); Eosinophils # (Auto) 0.05 K/mcL (0.00-0.70); Eosinophils % (Auto) 0.5 % (0.0-7.0); Hematocrit 28.1 % (36.0-48.0); Lymphocytes # (Auto) 2.19 K/mcL (1.50-4.80); Lymphocytes % (Auto) 22.3 % (15.0-49.0); Mean Cell Volume 101.8 fL (80.0-100.0); Mean Platelet Volume 10.1 fL (7.4-10.4); Monocytes # (Auto) 0.71 K/mcL (0.10-0.90); Monocytes % (Auto) 7.2 % (1.0-12.0); Neutrophils % (Auto) 69.6 % (38.0-78.0); Platelet Count 199 K/mcL (140-440); RBC 2.76 M/mcL (4.00-5.20); Red Cell Distribution Width 13.7 % (11.5-14.5); WBC 9.8 K/mcL (4.5-11.0)
[2021-03-31] MEDS: LEVOFLOXACIN 500 MG/100 ML BAG IV SCH (09:12)
[2021-03-31 09:29] LABS: ALT/SGPT 9 U/L (<40); AST/SGOT 14 U/L (<32); Albumin 3.2 gm/dL (3.2-5.2); Albumin/Globulin Ratio 1.3 (1.0-2.3); Alkaline Phosphatase 59 U/L (39-117); Bilirubin,Direct < 0.2 mg/dL (0-0.3); Blood Urea Nitrogen 9 mg/dL (8-23); Carbon Dioxide 31 mmol/L (22-30); Chloride 102 mmol/L (96-108); Globulin 2.4 gm/dL (2.2-3.7); Glomerular Filtration Rate 95; Glucose 92 mg/dL (70-105); Lactate Dehydrogenase 181 U/L (135-225); Triglycerides 109 mg/dL (<150); Uric Acid 3.5 mg/dL (2.5-8.0)
--- NOTE | 2021-03-31 12:36 | General Surgery Progress Note ---
SUBJECTIVE Subjective Patient information: Note initiated : 03/31/21 at 12:33 pm Service Date, if different from initiated Date: [] Patient: Liya Song 65 y/o F admitted on 03/29/21 for Colostomy Closure. Chief Complaint: [] Principal diagnosis: Colostomy closure Interval history: Patient is stable. She denies nausea. She has not had flatus so far. MIC drainage from the pelvis is bloody. White blood count 9.8 hemoglo bin 9 hematocrit 28.1, potassium 4, BUN 9, creatinine 0.6. Constitutional Vitals: Vital Signs Temp Pulse Resp BP Pulse Ox 98 F 84 16 100/61 94 03/31/21 11:38 03/31/21 11:38 03/31/21 11:38 03/31/21 11:38 03/31/21 11:38 Period Temp Pulse Resp BP Sys/Manjarrez Pulse Ox Last 24 Hr 97.2 F-98.8 F 73-104 14-20 89-109/55-61 78-94 Intake and Output 03/30/21 03/31/21 03/31/21 21:59 05:59 13:59 Intake Total 100 1000 1100 Output Total 1182 785 Balance -9160 608 4438 Weight 185 lb 3.2 oz Intake & Output: Intake & Output 03/30/21 03/31/21 03/31/21 21:59 05:59 13:59 Intake Total 100 1000 1100 Output Total 1182 785 Balance -3436 170 5857 Weight 185 lb 3.2 oz Intake: IV 1000 1100 Lactated Ringers 1,000 ml @ 125 1000 1000 mls/hr IV .Q8H [facility] Rx#: [id number] Oral 100 Output: Gastric Drainage 620 300 Right Nare 620 300 Drainage 12 10 Right Lower Abdomen 12 10 Urine Catheter Amount 475 Void Amount 550 Other: Urine Appearance Clear Uretheral (Schreiber) Clear Clear Urine Color Dark Yellow Dark Yellow Uretheral (Schreiber) Bright Yellow Bright Yellow Urine Odor Normal Normal Head Head exam: Present atraumatic, normal inspection and normocephalic Eye Eye exam: Present EOMI Pupils: Present normal accommodation and PERRL ENT ENT exam: Present mucous membranes moist and normal oropharynx Neck Neck exam: Present full ROM and normal inspection; Absent lymphadenopathy and tenderness Respiratory Respiratory exam: Present normal respiratory exam and CTAB; Absent rales, rhonchi and wheezes Cardiovascular Cardiovascular exam: Present normal rate and rhythm, JVD, RRR, +S1 and +S2; Absent gallop GI/Abdominal GI/Abdominal exam: Present diminished bowel sounds (Hypoactive bowel sounds), distended (Moderate distention) and tenderness (Moderate tenderness of the incision); Absent guarding Additional comments: MIC drainage is slightly bloody Extremities Exam Extremities exam: Present full ROM, normal inspection and neurovascular intact; Absent pedal edema Neurological Exam Neurological exam: Present alert, CN II-XII intact, oriented X3 and reflexes normal Psychiatric Psychiatric exam: Present normal mood Skin Skin exam: Present intact A/P Assessment and plan (1) Colostomy status: Status: Acute Narrative A/P Narrative: Patient is progressing very well. She denies any nausea. She has not had flatus so far. MIC drainage from the pelvis is serosanguineous. Time Spent With Patient Time: Total time spent is greater than 50% in coordination of care (as documented) at patient's floor/unit and/or counseling patient:
[2021-03-31] MEDS: SENNOSIDES 1 TABLET PO SCH (20:52)
[2021-04-01] MEDS: HYDROmorphone 1 MG/ML SYRINGE IV PRN ×7 (00:01→22:59)
[2021-04-01] MEDS: LACTATED RINGERS 1,000 ML IV SCH ×2 (03:01→12:39)
[2021-04-01] MEDS: 0.9 % SODIUM CHLORIDE 10 ML SYRINGE IV SCH ×3 (06:03→23:38)
[2021-04-01 08:30] LABS: Basophils # (Auto) 0.04 K/mcL (0.00-0.20); Basophils % (Auto) 0.5 % (0.0-2.0); Eosinophils # (Auto) 0.09 K/mcL (0.00-0.70); Hematocrit 26.2 % (36.0-48.0); Hemoglobin 8.4 g/dL (12.0-15.0); Lymphocytes # (Auto) 1.72 K/mcL (1.50-4.80); Lymphocytes % (Auto) 19.7 % (15.0-49.0); Mean Cell Volume 101.9 fL (80.0-100.0); Mean Corpuscular HGB Conc 32.1 g/dL (31.0-36.0); Mean Platelet Volume 9.9 fL (7.4-10.4); Monocytes # (Auto) 0.64 K/mcL (0.10-0.90); Monocytes % (Auto) 7.3 % (1.0-12.0); Neutrophils % (Auto) 71.5 % (38.0-78.0); Platelet Count 188 K/mcL (140-440); RBC 2.57 M/mcL (4.00-5.20); Red Cell Distribution Width 13.7 % (11.5-14.5); WBC 8.7 K/mcL (4.5-11.0)
[2021-04-01 09:03] LABS: ALT/SGPT 7 U/L (<40); AST/SGOT 10 U/L (<32); Albumin 3.2 gm/dL (3.2-5.2); Albumin/Globulin Ratio 1.5 (1.0-2.3); Alkaline Phosphatase 56 U/L (39-117); Bilirubin,Direct < 0.2 mg/dL (0-0.3); Bilirubin,Total 0.9 mg/dL (0.1-1.0); Blood Urea Nitrogen 4 mg/dL (8-23); Calcium 9.2 mg/dL (8.6-10.4); Carbon Dioxide 28 mmol/L (22-30); Chloride 97 mmol/L (96-108); Globulin 2.1 gm/dL (2.2-3.7); Glomerular Filtration Rate 109; Glucose 76 mg/dL (70-105); Lactate Dehydrogenase 133 U/L (135-225); Phosphorous 3.2 mg/dL (2.5-4.5); Triglycerides 109 mg/dL (<150); Uric Acid 4.7 mg/dL (2.5-8.0)
[2021-04-01] MEDS: DOCUSATE SODIUM 100 MG CAPSULE PO SCH ×2 (10:08→23:38)
[2021-04-01] MEDS: LEVOFLOXACIN 500 MG/100 ML BAG IV SCH (10:08)
--- NOTE | 2021-04-01 12:04 | General Surgery Progress Note ---
SUBJECTIVE Subjective Patient information: Note initiated : 04/01/21 at 12:01 pm Service Date, if different from initiated Date: [] Patient: Liya Song 65 y/o F admitted on 03/29/21 for Colostomy Closure. Chief Complaint: [] Principal diagnosis: Colostomy closure Interval history: Patient is stable. She has minimal discomfort. She has not had flatus so far. Potassium 3.4, BUN 4, creatinine 0.4, magnesium 1.5, white b lood count 8.7, hemoglobin 8.4, hematocrit 26.2. Constitutional Vitals: Vital Signs Temp Pulse Resp BP Pulse Ox 98.8 F 90 18 126/77 92 04/01/21 11:25 04/01/21 11:25 04/01/21 11:25 04/01/21 11:25 04/01/21 11:25 Period Temp Pulse Resp BP Sys/Manjarrez Pulse Ox Last 24 Hr 97.8 F-99.5 F 90-103 16-18 102-126/60-77 91-94 Intake and Output 03/31/21 04/01/21 04/01/21 21:59 05:59 13:59 Intake Total 1000 1100 Output Total 1010 1732 Balance -10 -632 Weight 186 lb 8 oz Intake & Output: Intake & Output 03/31/21 04/01/21 04/01/21 21:59 05:59 13:59 Intake Total 1000 1100 Output Total 1010 1732 Balance -10 -632 Weight 186 lb 8 oz Intake: IV 1000 1000 Lactated Ringers 1,000 ml @ 125 1000 1000 mls/hr IV .Q8H [facility] Rx#: [id number] Oral 100 Output: Gastric Drainage 1000 900 Right Nare 1000 900 Drainage 10 7 Right Lower Abdomen 10 7 Urine Catheter Amount 750 Void Amount 75 Other: Urine Appearance Clear Uretheral (Schreiber) Clear Urine Color Dark Yellow Uretheral (Schreiber) Dark Yellow Urine Odor Normal Head Head exam: Present atraumatic, normal inspection and normocephalic Eye Eye exam: Present EOMI Pupils: Present normal accommodation and PERRL ENT ENT exam: Present mucous membranes moist and normal oropharynx Neck Neck exam: Present full ROM and normal inspection; Absent lymphadenopathy and tenderness Respiratory Respiratory exam: Present normal respiratory exam and CTAB; Absent rales, rhonchi and wheezes Cardiovascular Cardiovascular exam: Present normal rate and rhythm, JVD, RRR, +S1 and +S2; Absent gallop GI/Abdominal GI/Abdominal exam: Present diminished bowel sounds (Hypoactive bowel sounds), distended (Moderate distention) and tenderness (Moderate tenderness of the incision); Absent guarding Additional comments: MIC drainage is slightly bloody Extremities Exam Extremities exam: Present full ROM, normal inspection and neurovascular intact; Absent pedal edema Neurological Exam Neurological exam: Present alert, CN II-XII intact, oriented X3 and reflexes normal Psychiatric Psychiatric exam: Present normal mood Skin Skin exam: Present intact A/P Assessment and plan (1) Colostomy status: Status: Acute Narrative A/P Narrative: Magnesium rider Potassium phosphate rider Decrease IV to 75 cc/h Time Spent With Patient Time: Total time spent is greater than 50% in coordination of care (as documented) at patient's floor/unit and/or counseling patient:
[2021-04-01] MEDS ORDERED: LACTATED RINGERS 1,000 ML IV SCH (12:15)
[2021-04-01] MEDS ORDERED: MAGNESIUM SULFATE 4 GM/100 ML BAG IV ONE (13:00)
[2021-04-01] MEDS ORDERED: POTASSIUM PHOSPHATE 40 MEQ in DEXTROSE 5% IN WATER 500 ML IV ONE (13:00)
[2021-04-01] MEDS: SENNOSIDES 1 TABLET PO SCH (23:38)
[2021-04-02] MEDS: ONDANSETRON 4 MG/2 ML VIAL IV PRN (01:00)
[2021-04-02] MEDS: HYDROmorphone 1 MG/ML SYRINGE IV PRN ×5 (04:39→22:40)
[2021-04-02] MEDS: 0.9 % SODIUM CHLORIDE 10 ML SYRINGE IV SCH ×3 (04:39→21:00)
[2021-04-02] MEDS: DOCUSATE SODIUM 100 MG CAPSULE PO SCH ×2 (08:23→19:39)
[2021-04-02] MEDS: LEVOFLOXACIN 500 MG/100 ML BAG IV SCH (08:23)
[2021-04-02 08:55] LABS: Basophils # (Auto) 0.04 K/mcL (0.00-0.20); Basophils % (Auto) 0.5 % (0.0-2.0); Eosinophils # (Auto) 0.11 K/mcL (0.00-0.70); Eosinophils % (Auto) 1.4 % (0.0-7.0); Hematocrit 26.8 % (36.0-48.0); Hemoglobin 8.7 g/dL (12.0-15.0); Lymphocytes # (Auto) 1.58 K/mcL (1.50-4.80); Mean Cell Volume 101.5 fL (80.0-100.0); Mean Corpuscular HGB Conc 32.5 g/dL (31.0-36.0); Mean Platelet Volume 10.2 fL (7.4-10.4); Monocytes % (Auto) 7.6 % (1.0-12.0); Neutrophils % (Auto) 70.5 % (38.0-78.0); Platelet Count 235 K/mcL (140-440); RBC 2.64 M/mcL (4.00-5.20); Red Cell Distribution Width 13.8 % (11.5-14.5); WBC 7.9 K/mcL (4.5-11.0)
[2021-04-02 09:03] LABS: ALT/SGPT 6 U/L (<40); AST/SGOT 11 U/L (<32); Albumin 2.9 gm/dL (3.2-5.2); Albumin/Globulin Ratio 1.1 (1.0-2.3); Alkaline Phosphatase 56 U/L (39-117); Bilirubin,Direct < 0.2 mg/dL (0-0.3); Bilirubin,Total 0.8 mg/dL (0.1-1.0); Blood Urea Nitrogen 3 mg/dL (8-23); Calcium 8.5 mg/dL (8.6-10.4); Carbon Dioxide 32 mmol/L (22-30); Chloride 98 mmol/L (96-108); Globulin 2.7 gm/dL (2.2-3.7); Glomerular Filtration Rate 109; Glucose 91 mg/dL (70-105); Lactate Dehydrogenase 151 U/L (135-225); Phosphorous 3.6 mg/dL (2.5-4.5); Triglycerides 103 mg/dL (<150)
--- NOTE | 2021-04-02 13:28 | General Surgery Progress Note ---
SUBJECTIVE Subjective Patient information: Note initiated : 04/02/21 at 1:24 pm Service Date, if different from initiated Date: [] Patient: Liya Song 65 y/o F admitted on 03/29/21 for Colostomy Closure. Chief Complaint: [] Principal diagnosis: Colostomy closure Interval history: Patient is doing well. She has mild abdominal distention but no crampy abdominal pain no nausea. She has not had flatus so far. Potassium 3 .6, BUN 3, creatinine 0.4, white blood count 7.9, hemoglobin 8.7, hematocrit 26.8. Constitutional Vitals: Vital Signs Temp Pulse Resp BP Pulse Ox 98.3 F 90 16 126/70 92 04/02/21 11:51 04/02/21 11:51 04/02/21 11:51 04/02/21 11:51 04/02/21 11:51 Period Temp Pulse Resp BP Sys/Manjarrez Pulse Ox Last 24 Hr 97.5 F-99.0 F 70-99 14-20 117-144/66-73 91-96 Intake and Output 04/01/21 04/02/21 04/02/21 21:59 05:59 13:59 Intake Total 891 691.4146 100 Output Total 1165 1520 Balance -537 -810.9091 100 Weight 187 lb 4 oz Intake & Output: Intake & Output 04/01/21 04/02/21 04/02/21 21:59 05:59 13:59 Intake Total 930 280.3793 100 Output Total 1165 1520 Balance -537 -810.9091 100 Weight 187 lb 4 oz Intake: IV 845 535.8098 100 Lactated Ringers 1,000 ml @ 75 428 mls/hr IV .[id number] [facility] Rx#: [id number] Potassium Phosphate 40 Meq In 509.0909 Dextrose 5% in Water 500 ml @ 127.273 mls/hr IV ONCE ONE Rx#: [id number] Oral 200 Output: Gastric Drainage 650 800 Right Nare 650 800 Drainage 15 20 Right Lower Abdomen 15 20 Urine Catheter Amount 500 700 Other: Urine Appearance Clear Clear Clear Uretheral (Schreiber) Clear Clear Urine Color Dark Yellow Dark Yellow Dark Yellow Uretheral (Schreiber) Dark Yellow Straw Urine Odor Strong Normal Uretheral (Schreiber) Normal Normal Head Head exam: Present atraumatic, normal inspection and normocephalic Eye Eye exam: Present EOMI Pupils: Present normal accommodation and PERRL ENT ENT exam: Present mucous membranes moist and normal oropharynx Neck Neck exam: Present full ROM and normal inspection; Absent lymphadenopathy and tenderness Respiratory Respiratory exam: Present normal respiratory exam and CTAB; Absent rales, rhonchi and wheezes Cardiovascular Cardiovascular exam: Present normal rate and rhythm, JVD, RRR, +S1 and +S2; Absent gallop GI/Abdominal GI/Abdominal exam: Present diminished bowel sounds (Hypoactive bowel sounds), distended (Moderate distention) and tenderness (Moderate tenderness of the inc ision); Absent guarding Additional comments: MIC drainage is slightly bloody Extremities Exam Extremities exam: Present full ROM, normal inspection and neurovascular intact; Absent pedal edema Neurological Exam Neurological exam: Present alert, CN II-XII intact, oriented X3 and reflexes normal Psychiatric Psychiatric exam: Present normal mood A/P Assessment and plan (1) Colostomy status: Status: Acute Narrative A/P Narrative: Continue IV fluids as ordered previously continue to monitor abdominal distention. Time Spent With Patient Time: Total time spent is greater than 50% in coordination of care (as documented) at patient's floor/unit and/or counseling patient:
[2021-04-02] MEDS: 0.9 % SODIUM CHLORIDE 1,000 ML IV SCH (13:47)
--- NOTE | 2021-04-02 16:33 | XRay Report ---
CLINICAL INFORMATION: FOLLOW -UP OF Colostomy closure COMPARISON: None. FINDINGS: NG tube is bent in the gastric body with the tip is redirected toward the fundus. The GI tract is decompressed with only minimal gas scattered within the small bowel. There is no free air or soft tissue mass. Surgical drain overlies the right false pelvis. IMPRESSION: Negative Interpreted and Authenticated by: Wes Hilliard 04/02/21
[2021-04-02] MEDS: SENNOSIDES 1 TABLET PO SCH (19:39)
[2021-04-03] MEDS: 0.9 % SODIUM CHLORIDE 1,000 ML IV SCH ×3 (00:15→22:21)
[2021-04-03] MEDS: 0.9 % SODIUM CHLORIDE 10 ML SYRINGE IV SCH ×3 (06:11→21:32)
[2021-04-03] MEDS: HYDROmorphone 1 MG/ML SYRINGE IV PRN ×4 (06:47→21:56)
[2021-04-03] MEDS: LEVOFLOXACIN 500 MG/100 ML BAG IV SCH (09:17)
--- NOTE | 2021-04-03 10:42 | XRay Report ---
CLINICAL INFORMATION: FOLLOW -UP OF Colostomy closure COMPARISON: 04/02/2021 FINDINGS: NG tube is bent in the gastric body with the tip is redirected toward the fundus. The GI tract is decompressed with only minimal gas scattered within the small bowel. There is no free air or soft tissue mass. Surgical drain overlies the right false pelvis. IMPRESSION: Negative. No change Interpreted and Authenticated by: Wes Hilliard 04/03/21
[2021-04-03] MEDS: METOCLOPRAMIDE 10 MG/2 ML VIAL IV SCH ×3 (11:59→23:55)
[2021-04-03] MEDS ORDERED: METOCLOPRAMIDE 10 MG/2 ML VIAL IV SCH (12:00)
--- NOTE | 2021-04-03 12:58 | General Surgery Progress Note ---
SUBJECTIVE Subjective Patient information: Note initiated : 04/03/21 at 12:55 pm Service Date, if different from initiated Date: [] Patient: Liya Song 65 y/o F admitted on 03/29/21 for Colostomy Closure. Chief Complaint: [] Principal diagnosis: Colostomy closure Interval history: Patient continues to do well. She is now 5 days post procedure. She states that she has not passed gas but her abdominal x-ray shows minimal gas in her small bowel and colon. She does not complain of nausea. She denies abdominal pain. Constitutional Vitals: Vital Signs Temp Pulse Resp BP Pulse Ox 98.0 F 88 18 120/76 97 04/03/21 11:26 04/03/21 11:26 04/03/21 11:26 04/03/21 11:26 04/03/21 11:26 Period Temp Pulse Resp BP Sys/Manjarrez Pulse Ox Last 24 Hr 97.9 F-98.9 F 85-100 16-18 120-154/64-83 89-97 Intake and Output 04/02/21 04/03/21 04/03/21 21:59 05:59 13:59 Intake Total 1700 1000 Output Total 1070 1605 Balance -1070 95 1000 Weight 186 lb Intake & Output: Intake & Output 04/02/21 04/03/21 04/03/21 21:59 05:59 13:59 Intake Total 1700 1000 Output Total 1070 1605 Balance -1070 95 1000 Weight 186 lb Intake: IV 1000 1000 Sodium Chloride 0.9% 1,000 ml @ 1000 1000 100 mls/hr IV .Q10H [facility] Rx#: [id number] Oral 700 Output: Gastric Drainage 550 1100 Right Nare 550 1100 Drainage 20 5 Right Lower Abdomen 20 5 Urine Catheter Amount 500 500 Other: Urine Appearance Clear Clear Uretheral (Schreiber) Clear Urine Color Dark Yellow Dark Yellow Uretheral (Schreiber) Bright Yellow Urine Odor Normal Eye Eye exam: Present EOMI Pupils: Present normal accommodation and PERRL ENT ENT exam: Present mucous membranes moist and normal oropharynx Respiratory Respiratory exam: Present normal respiratory exam and CTAB; Absent rales, rhonchi and wheezes Cardiovascular Cardiovascular exam: Present normal rate and rhythm, JVD, RRR, +S1 and +S2; Absent gallop GI/Abdominal GI/Abdominal exam: Present diminished bowel sounds (Hypoactive bowel sounds), distended (Moderate distention) and tenderness (Moderate tenderness of the incision); Absent guarding Additional comments: MIC drainage is slightly bloody Extremities Exam Extremities exam: Present full ROM, normal inspection and neurovascular intact; Absent pedal edema Neurological Exam Neurological exam: Present alert, CN II-XII intact, oriented X3 and reflexes normal Psychiatric Psychiatric exam: Present normal mood A/P Assessment and plan (1) Colostomy status: Status: Acute Narrative A/P Narrative: Clamp nasogastric tube Trial of clear liquids Discontinue Schreiber catheter CBC and inpatient panel in the morning Time Spent With Patient Time: Total time spent is greater than 50% in coordination of care (as documented) at patient's floor/unit and/or counseling patient:
[2021-04-03] MEDS: DOCUSATE SODIUM 100 MG CAPSULE PO SCH ×2 (18:04→20:40)
[2021-04-03] MEDS: SENNOSIDES 1 TABLET PO SCH (20:40)
[2021-04-04] MEDS: HYDROmorphone 1 MG/ML SYRINGE IV PRN ×4 (04:41→19:32)
[2021-04-04] MEDS: 0.9 % SODIUM CHLORIDE 1,000 ML IV SCH ×2 (05:37→16:13)
[2021-04-04] MEDS: METOCLOPRAMIDE 10 MG/2 ML VIAL IV SCH ×4 (05:38→23:30)
[2021-04-04] MEDS: 0.9 % SODIUM CHLORIDE 10 ML SYRINGE IV SCH ×3 (05:38→22:06)
[2021-04-04 06:50] LABS: Basophils # (Auto) 0.04 K/mcL (0.00-0.20); Basophils % (Auto) 0.5 % (0.0-2.0); Eosinophils # (Auto) 0.13 K/mcL (0.00-0.70); Eosinophils % (Auto) 1.5 % (0.0-7.0); Hematocrit 28.7 % (36.0-48.0); Hemoglobin 9.1 g/dL (12.0-15.0); Lymphocytes # (Auto) 1.13 K/mcL (1.50-4.80); Lymphocytes % (Auto) 12.8 % (15.0-49.0); Mean Cell Volume 101.4 fL (80.0-100.0); Mean Corpuscular HGB Conc 31.7 g/dL (31.0-36.0); Mean Platelet Volume 9.6 fL (7.4-10.4); Monocytes # (Auto) 0.86 K/mcL (0.10-0.90); Monocytes % (Auto) 9.7 % (1.0-12.0); Neutrophils % (Auto) 75.5 % (38.0-78.0); Platelet Count 278 K/mcL (140-440); RBC 2.83 M/mcL (4.00-5.20); Red Cell Distribution Width 13.4 % (11.5-14.5); WBC 8.9 K/mcL (4.5-11.0)
[2021-04-04 07:32] LABS: ALT/SGPT 7 U/L (<40); AST/SGOT 12 U/L (<32); Albumin/Globulin Ratio 1.2 (1.0-2.3); Alkaline Phosphatase 59 U/L (39-117); Bilirubin,Direct < 0.2 mg/dL (0-0.3); Bilirubin,Total 0.7 mg/dL (0.1-1.0); Blood Urea Nitrogen 2 mg/dL (8-23); Calcium 8.5 mg/dL (8.6-10.4); Carbon Dioxide 21 mmol/L (22-30); Chloride 98 mmol/L (96-108); Globulin 2.5 gm/dL (2.2-3.7); Glomerular Filtration Rate 109; Glucose 95 mg/dL (70-105); Lactate Dehydrogenase 180 U/L (135-225); Phosphorous 2.8 mg/dL (2.5-4.5); Triglycerides 102 mg/dL (<150); Uric Acid 5.9 mg/dL (2.5-8.0)
[2021-04-04] MEDS: LEVOFLOXACIN 500 MG/100 ML BAG IV SCH (09:29)
[2021-04-04] MEDS: DOCUSATE SODIUM 100 MG CAPSULE PO SCH ×2 (09:30→19:59)
--- NOTE | 2021-04-04 10:02 | XRay Report ---
CLINICAL INFORMATION: FOLLOW -UP OF Colostomy closure COMPARISON: 03/26/2021. FINDINGS: NG tube is bent in the gastric body with the tip is redirected toward the fundus. There is more gas seen within the small and large bowel in today's exam. . There is no free air or soft tissue mass. Surgical drain overlies the right false pelvis. IMPRESSION: Negative exam Interpreted and Authenticated by: Wes Hilliard 04/04/21
--- NOTE | 2021-04-04 13:04 | Operative Note ---
DATE OF OPERATION: 03/29/2021 PREOPERATIVE DIAGNOSIS: Colostomy status. POSTOPERATIVE DIAGNOSES: Colostomy status, extensive pelvic and intraabdominal adhesions, very fibrotic rectal stump. PROCEDURE: Colostomy takedown with adhesiolysis. SURGEON: Get Romano M.D. FINDINGS: Extensive pelvic and intraabdominal adhesions with a shrunken, fibrotic, foreshortened rectal stump. DESCRIPTION OF PROCEDURE: Under general anesthesia, the patient's abdomen was prepped and draped in a sterile field. The colostomy was closed with running locking suture prior to the prep and was covered with Vi-Drape. A timeout procedure was carried out as per protocol. A midline incision was opened. There were extensive adhesions to the peritoneum and small bowel. These were taken down using sharp dissection with Metzenbaum scissors. The omentum was dissected from the underlying small bowel and the pelvis was gently cleared of small bowel. The abdomen was packed off and a Bookwalter retractor was placed. Initially, dissection was carried out in the pelvis to try to find the rectal stump. The pelvis was quite hollow, and there were two suture ends of the Prolene that had been placed on the end of the rectal stump at the time of the original surgery. These were followed back to what appeared to be a very foreshortened, shrunken rectum that was deep in the pelvis. Sharp dissection was carried out posteriorly to try to stay in a minimal vascular plane. I was able to get down deep into the hollow of the sacrum where I could feel normal rectum. This was almost down to the tip of the coccyx, however. Circumferential dissection was carried out and the bladder and uterus were from the residual stump anteriorly. There was minimal stretch on the rectal stump because of fibrotic changes. Once I could find a soft area, this was incised and the mucosa was found. The mucosa was then opened. The residual rectal stump was very fibrotic and somewhat stenotic, but it appeared that it would be able to take an anastomosis since the blood supply was very good. After identifying the rectum and checking for its viability, I then incised the stoma from the abdominal wall and totally excised it. It was then brought into the abdomen. The end of the stoma was excised and it was felt that it would be best to do an end-to-end anastomosis. The end of the rectum was bevelled anteriorly and the end of the descending colon was also bevelled. There was no tension on the anastomosis. The posterior wall of the colon was sutured to the posterior wall of the short, fibrotic rectal stump using running locking 2-0 Prolene. This was a good closure with good tissue on either side. Once this was done, the opening was checked and a large catheter was placed in the end of the colon and down into the rectal stump to make sure that the lumen was maintained. A 2-0 Monocryl was then used to suture the mucosa to mucosa using running locking 2-0 Monocryl with a canal stitch. This was brought anteriorly and the two suture ends were tied. The anterior aspect of the anastomosis was reinforced using another suture of running locking 2-0 Prolene. There appeared to be a very snug but patent opening. A #10 Krishna drain was placed in the hollow of the sacrum beneath the anastomosis and brought out laterally on the right. Irrigation was carried out. The sponges were counted and back table was changed. The muscle in the stoma site was closed with a running #1 Prolene intraperitoneally and also on the anterior rectus muscle. Irrigation of the stoma site was carried out. The retractor was removed and then the sponge count was completed. We changed gloves and gown at that time. The fascia was closed with running #1 Prolene. Subcutaneous fat was closed with 2-0 Monocryl. Skin was closed with regla. The subcutaneous tissue in the stoma site was closed with a running 2-0 Monocryl in two layers and the skin was closed with regla. Tegaderm dressings were placed. The drain was secured with 3-0 nylon. The patient tolerated the procedure well. She was awakened, extubated, transferred to a bed, and taken to the postanesthetic care unit in satisfactory condition. Operative time was about five hours. [email or web address] Job ID: [id number] Doc ID: [id number] Get Romano M.D.
--- NOTE | 2021-04-04 13:53 | General Surgery Progress Note ---
SUBJECTIVE Subjective Patient information: Note initiated : 04/04/21 at 1:50 pm Service Date, if different from initiated Date: [] Patient: Liya Song 65 y/o F admitted on 03/29/21 for Colostomy Closure. Chief Complaint: [] Principal diagnosis: Colostomy closure Interval history: Patient is stable. She had her nasogastric tube clamped on yesterday. She still has not had flatus but she denies nausea. She does not have significant abdominal distention. X-ray shows gas in the colon with a small amount of gas in the small bowel but no major distention. White blood count 8.9, hemoglobin 9.1, hematocrit 28.7. Constitutional Vitals: Vital Signs Temp Pulse Resp BP Pulse Ox 97.3 F 97 H 12 153/81 94 04/04/21 12:00 04/04/21 12:00 04/04/21 12:00 04/04/21 12:00 04/04/21 12:00 Period Temp Pulse Resp BP Sys/Manjarrez Pulse Ox Last 24 Hr 97.3 F-99.2 F 86-97 12-20 146-156/74-81 94-96 Intake and Output 04/03/21 04/04/21 04/04/21 21:59 05:59 13:59 Intake Total 100 1727 600 Output Total 815 865 600 Balance -715 862 0 Weight 183 lb Intake & Output: Intake & Output 04/03/21 04/04/21 04/04/21 21:59 05:59 13:59 Intake Total 100 1727 600 Output Total 815 865 600 Balance -715 862 0 Weight 183 lb Intake: IV 100 1727 Sodium Chloride 0.9% 1,000 ml @ 1727 100 mls/hr IV .Q10H [facility] Rx#: [id number] Oral 0 600 Output: Drainage 15 15 Right Lower Abdomen 15 15 Urine Catheter Amount 450 Uretheral (Schreiber) 450 Void Amount 350 850 600 Other: # Voids 1 Head Head exam: Present atraumatic, normal inspection and normocephalic Eye Eye exam: Present EOMI Pupils: Present normal accommodation and PERRL ENT ENT exam: Present mucous membranes moist and normal oropharynx Neck Neck exam: Present full ROM and normal inspection; Absent lymphadenopathy and tenderness Respiratory Respiratory exam: Present normal respiratory exam and CTAB; Absent rales, rhonchi and wheezes Cardiovascular Cardiovascular exam: Present normal rate and rhythm, JVD, RRR, +S1 and +S2; Absent gallop GI/Abdominal GI/Abdominal exam: Present diminished bowel sounds (Hypoactive bowel sounds), distended (Moderate distention) and tenderness (Moderate tenderness of the incision); Absent guarding Additional comments: MIC drainage is slightly bloody Extremities Exam Extremities exam: Present full ROM, normal inspection and neurovascular intact; Absent pedal edema Neurological Exam Neurological exam: Present alert, CN II-XII intact, oriented X3 and reflexes normal Psychiatric Psychiatric exam: Present normal mood Skin Skin exam: Present intact A/P Assessment and plan (1) Colostomy status: Status: Acute Narrative A/P Narrative: Discontinue nasogastric tube Clear liquid diet Time Spent With Patient Time: Total time spent is greater than 50% in coordination of care (as documented) at patient's floor/unit and/or counseling patient:
[2021-04-04] MEDS ORDERED: MAGNESIUM SULFATE 4 GM/100 ML BAG IV ONE ×2 (19:30→19:48)
[2021-04-04] MEDS: SENNOSIDES 1 TABLET PO SCH (19:59)
[2021-04-05] MEDS: 0.9 % SODIUM CHLORIDE 1,000 ML IV SCH ×4 (00:54→21:20)
[2021-04-05] MEDS: HYDROmorphone 1 MG/ML SYRINGE IV PRN ×4 (03:15→21:23)
[2021-04-05] MEDS: METOCLOPRAMIDE 10 MG/2 ML VIAL IV SCH ×4 (06:09→23:37)
[2021-04-05 06:38] LABS: Basophils # (Auto) 0.05 K/mcL (0.00-0.20); Basophils % (Auto) 0.6 % (0.0-2.0); Eosinophils # (Auto) 0.14 K/mcL (0.00-0.70); Eosinophils % (Auto) 1.6 % (0.0-7.0); Hematocrit 30.9 % (36.0-48.0); Hemoglobin 9.9 g/dL (12.0-15.0); Lymphocytes # (Auto) 1.15 K/mcL (1.50-4.80); Lymphocytes % (Auto) 13.1 % (15.0-49.0); Mean Platelet Volume 9.5 fL (7.4-10.4); Monocytes % (Auto) 7.9 % (1.0-12.0); Neutrophils % (Auto) 76.8 % (38.0-78.0); Platelet Count 374 K/mcL (140-440); RBC 3.09 M/mcL (4.00-5.20); Red Cell Distribution Width 13.5 % (11.5-14.5); WBC 8.8 K/mcL (4.5-11.0)
[2021-04-05] MEDS: 0.9 % SODIUM CHLORIDE 10 ML SYRINGE IV SCH ×3 (07:32→20:53)
[2021-04-05 08:00] LABS: ALT/SGPT 8 U/L (<40); AST/SGOT 12 U/L (<32); Albumin 3.2 gm/dL (3.2-5.2); Albumin/Globulin Ratio 1.1 (1.0-2.3); Alkaline Phosphatase 71 U/L (39-117); Bilirubin,Direct < 0.2 mg/dL (0-0.3); Bilirubin,Total 0.7 mg/dL (0.1-1.0); Blood Urea Nitrogen < 2 mg/dL (8-23); Calcium 8.7 mg/dL (8.6-10.4); Carbon Dioxide 25 mmol/L (22-30); Chloride 96 mmol/L (96-108); Glomerular Filtration Rate 109; Glucose 134 mg/dL (70-105); Lactate Dehydrogenase 224 U/L (135-225); Phosphorous 2.8 mg/dL (2.5-4.5); Triglycerides 99 mg/dL (<150); Uric Acid 5.1 mg/dL (2.5-8.0)
[2021-04-05] MEDS: LEVOFLOXACIN 500 MG/100 ML BAG IV SCH (08:54)
[2021-04-05] MEDS: DOCUSATE SODIUM 100 MG CAPSULE PO SCH ×2 (08:54→20:53)
--- NOTE | 2021-04-05 10:21 | XRay Report ---
CLINICAL INFORMATION: FOLLOW -UP OF ileus COMPARISON: 04/04/2021 FINDINGS: NG tube now out. Normal amounts of gas in the transverse and adjacent ascending descending colon. Minimal gas in the small bowel and stomach. No free air. Surgical drain remains in the pelvic region. IMPRESSION: Decompressed GI tract. No evidence of recurrent pathology Interpreted and Authenticated by: Wes Hilliard 04/05/21
[2021-04-05] MEDS: SENNOSIDES 1 TABLET PO SCH (20:53)
[2021-04-06] MEDS: HYDROmorphone 1 MG/ML SYRINGE IV PRN ×7 (00:07→23:42)
[2021-04-06] MEDS: 0.9 % SODIUM CHLORIDE 1,000 ML IV SCH ×2 (00:50→10:20)
[2021-04-06] MEDS: 0.9 % SODIUM CHLORIDE 10 ML SYRINGE IV SCH ×3 (05:26→23:05)
[2021-04-06] MEDS: METOCLOPRAMIDE 10 MG/2 ML VIAL IV SCH ×4 (05:26→23:38)
[2021-04-06 06:34] LABS: Basophils # (Auto) 0.04 K/mcL (0.00-0.20); Basophils % (Auto) 0.6 % (0.0-2.0); Eosinophils # (Auto) 0.14 K/mcL (0.00-0.70); Hematocrit 28.9 % (36.0-48.0); Hemoglobin 9.3 g/dL (12.0-15.0); Lymphocytes # (Auto) 1.35 K/mcL (1.50-4.80); Lymphocytes % (Auto) 19.4 % (15.0-49.0); Mean Cell Volume 99.3 fL (80.0-100.0); Mean Corpuscular HGB Conc 32.2 g/dL (31.0-36.0); Mean Platelet Volume 9.4 fL (7.4-10.4); Monocytes # (Auto) 0.69 K/mcL (0.10-0.90); Monocytes % (Auto) 9.9 % (1.0-12.0); Neutrophils % (Auto) 68.1 % (38.0-78.0); Platelet Count 389 K/mcL (140-440); RBC 2.91 M/mcL (4.00-5.20); Red Cell Distribution Width 13.4 % (11.5-14.5)
--- NOTE | 2021-04-06 06:34 | XRay Report ---
CLINICAL INFORMATION: FOLLOW -UP OF ileus COMPARISON: None. FINDINGS: Stomach and small bowel remain decompressed. Small amount of gas seen within the colon. No evidence of bowel obstruction. Surgical drain overlies the false pelvis. No free air or soft tissue mass. IMPRESSION: Negative Interpreted and Authenticated by: Wes Hilliard 04/06/21
[2021-04-06 07:23] LABS: ALT/SGPT 7 U/L (<40); AST/SGOT 10 U/L (<32); Albumin 2.9 gm/dL (3.2-5.2); Alkaline Phosphatase 61 U/L (39-117); Bilirubin,Direct < 0.2 mg/dL (0-0.3); Bilirubin,Total 0.6 mg/dL (0.1-1.0); Blood Urea Nitrogen < 2 mg/dL (8-23); Calcium 8.7 mg/dL (8.6-10.4); Carbon Dioxide 25 mmol/L (22-30); Chloride 100 mmol/L (96-108); Globulin 2.8 gm/dL (2.2-3.7); Glomerular Filtration Rate 109; Glucose 88 mg/dL (70-105); Lactate Dehydrogenase 191 U/L (135-225); Phosphorous 3.8 mg/dL (2.5-4.5); Triglycerides 91 mg/dL (<150); Uric Acid 4.8 mg/dL (2.5-8.0)
[2021-04-06] MEDS: DOCUSATE SODIUM 100 MG CAPSULE PO SCH ×2 (09:00→20:48)
[2021-04-06] MEDS: LEVOFLOXACIN 500 MG/100 ML BAG IV SCH (09:00)
--- NOTE | 2021-04-06 12:24 | General Surgery Progress Note ---
SUBJECTIVE Subjective Patient information: Note initiated : 04/06/21 at 12:20 pm Service Date, if different from initiated Date: [] Patient: Liya Song 65 y/o F admitted on 03/29/21 for Colostomy Closure. Chief Complaint: [] Principal diagnosis: Colostomy closure Interval history: Patient is stable status post colostomy closure. She had 4 episodes of flatus last evening. She denies abdominal pain. Her drainage is serosanguineous from her pelvis. Abdominal x-ray shows dilated colon without dilation of small bowel. She is tolerated liquid diet without difficulty. Constitutional Vitals: Vital Signs Temp Pulse Resp BP Pulse Ox 97.1 F 84 14 154/80 96 04/06/21 07:16 04/06/21 07:16 04/06/21 07:16 04/06/21 07:16 04/06/21 07:16 Period Temp Pulse Resp BP Sys/Manjarrez Pulse Ox Last 24 Hr 97.1 F-98.3 F 84-95 14-18 140-162/78-86 93-96 Intake and Output 04/05/21 04/06/21 04/06/21 21:59 05:59 13:59 Intake Total 360 1100 100 Output Total 752 655 200 Balance -392 445 -100 Weight 182 lb 8 oz Intake & Output: Intake & Output 04/05/21 04/06/21 04/06/21 21:59 05:59 13:59 Intake Total 360 1100 100 Output Total 752 655 200 Balance -392 445 -100 Weight 182 lb 8 oz Intake: IV 1000 100 Sodium Chloride 0.9% 1,000 ml @ 1000 100 mls/hr IV .Q10H [facility] Rx#: [id number] Oral 360 100 Output: Drainage 5 Right Lower Abdomen 5 Void Amount 750 650 200 # of times incontinent of urine 2 Other: Urine Appearance Clear Clear Urine Color Bright Yellow Dark Yellow Head Head exam: Present atraumatic, normal inspection and normocephalic Eye Eye exam: Present EOMI Pupils: Present normal accommodation and PERRL ENT ENT exam: Present mucous membranes moist and normal oropharynx Neck Neck exam: Present full ROM and normal inspection; Absent lymphadenopathy and tenderness Respiratory Respiratory exam: Present normal respiratory exam and CTAB; Absent rales, rhonchi and wheezes Cardiovascular Cardiovascular exam: Present normal rate and rhythm, JVD, RRR, +S1 and +S2; Absent gallop GI/Abdominal GI/Abdominal exam: Present diminished bowel sounds (Hypoactive bowel sounds), distended (Moderate distention) and tenderness (Moderate tenderness of the incision); Absent guarding Additional comments: MIC drainage is slightly bloody Extremities Exam Extremities exam: Present full ROM, normal inspection and neurovascular intact; Absent pedal edema Neurological Exam Neurological exam: Present alert, CN II-XII intact, oriented X3 and reflexes normal Psychiatric Psychiatric exam: Present normal mood A/P Assessment and plan (1) Colostomy status: Status: Acute Narrative A/P Narrative: Continue on present therapy Advance to full liquids with Magic cups and Ensure Replace potassium Time Spent With Patient Time: Total time spent is greater than 50% in coordination of care (as documented) at patient's floor/unit and/or counseling patient:
[2021-04-06] MEDS: POTASSIUM CHLORIDE 40 MEQ in DEXTROSE 5% IN WATER 500 ML IV SCH ×2 (13:09→20:47)
[2021-04-06] MEDS: SENNOSIDES 1 TABLET PO SCH (20:47)
[2021-04-07] MEDS: 0.9 % SODIUM CHLORIDE 1,000 ML IV SCH ×2 (02:12→11:16)
[2021-04-07] MEDS: HYDROmorphone 1 MG/ML SYRINGE IV PRN ×2 (03:42→08:29)
[2021-04-07] MEDS: METOCLOPRAMIDE 10 MG/2 ML VIAL IV SCH ×3 (06:08→18:12)
[2021-04-07] MEDS: 0.9 % SODIUM CHLORIDE 10 ML SYRINGE IV SCH ×3 (06:08→20:58)
[2021-04-07] MEDS: DOCUSATE SODIUM 100 MG CAPSULE PO SCH ×2 (08:29→20:57)
[2021-04-07] MEDS: LEVOFLOXACIN 500 MG/100 ML BAG IV SCH (08:30)
[2021-04-07] MEDS: POLYETHYLENE GLYCOL 3350 17 GM PACKET PO SCH ×2 (11:13→20:57)
--- NOTE | 2021-04-07 11:15 | General Surgery Progress Note ---
SUBJECTIVE Subjective Patient information: Note initiated : 04/07/21 at 11:12 am Service Date, if different from initiated Date: [] Patient: Liya Song 65 y/o F admitted on 03/29/21 for Colostomy Closure. Chief Complaint: [] Principal diagnosis: Colostomy closure Interval history: Patient is gradually improving. She had more flatus last evening and has had some this morning. Her abdominal distention is much less. X-rays show decreasing the amount of colon gas compared to yesterday. She is tolerating full liquid diet without nausea. Constitutional Vitals: Vital Signs Temp Pulse Resp BP Pulse Ox 97 F 98 H 16 142/69 92 04/07/21 07:21 04/07/21 07:21 04/07/21 07:21 04/07/21 07:21 04/07/21 07:21 Period Temp Pulse Resp BP Sys/Manjarrez Pulse Ox Last 24 Hr 97 F-98.7 F 71-115 16-18 114-158/69-90 92-98 Intake and Output 04/06/21 04/07/21 04/07/21 21:59 05:59 13:59 Intake Total 1100 670 100 Output Total 300 301.5 200 Balance 800 368.5 -100 Weight 183 lb 12.8 oz Intake & Output: Intake & Output 04/06/21 04/07/21 04/07/21 21:59 05:59 13:59 Intake Total 1100 670 100 Output Total 300 301.5 200 Balance 800 368.5 -100 Weight 183 lb 12.8 oz Intake: IV 520 520 100 Potassium Chloride 40 Meq In 520 520 Dextrose 5% in Water 500 ml @ 130 mls/hr IV Q4H [facility] Rx#: [id number] Oral 580 150 Output: Drainage 0.5 Right Lower Abdomen 0.5 Void Amount 300 300 200 # of times incontinent of urine 1 Other: Urine Appearance Clear Clear Urine Color Dark Yellow Bright Yellow Bright Yellow Urine Odor Normal Normal Normal Head Head exam: Present atraumatic, normal inspection and normocephalic Eye Eye exam: Present EOMI Pupils: Present normal accommodation and PERRL ENT ENT exam: Present mucous membranes moist and normal oropharynx Neck Neck exam: Present full ROM and normal inspection; Absent lymphadenopathy and tenderness Respiratory Respiratory exam: Present normal respiratory exam and CTAB; Absent rales, rhonchi and wheezes Cardiovascular Cardiovascular exam: Present normal rate and rhythm, JVD, RRR, +S1 and +S2; Absent gallop GI/Abdominal GI/Abdominal exam: Present diminished bowel sounds (Hypoactive bowel sounds), distended (Moderate distention) and tenderness (Moderate tenderness of the incision); Absent guarding Additional comments: MIC drainage is slightly bloody Extremities Exam Extremities exam: Present full ROM, normal inspection and neurovascular intact; Absent pedal edema Neurological Exam Neurological exam: Present alert, CN II-XII intact, oriented X3 and reflexes normal Psychiatric Psychiatric exam: Present normal mood A/P Assessment and plan (1) Colostomy status: Status: Acute Narrative A/P Narrative: MiraLAX twice daily Switch to oral pain meds Time Spent With Patient Time: Total time spent is greater than 50% in coordination of care (as documented) at patient's floor/unit and/or counseling patient:
[2021-04-07] MEDS: oxyCODONE HCL 5 MG TABLET PO PRN ×2 (14:43→20:04)
[2021-04-07] MEDS: SENNOSIDES 1 TABLET PO SCH (20:57)
[2021-04-08] MEDS: oxyCODONE HCL 5 MG TABLET PO PRN ×5 (00:02→19:26)
[2021-04-08] MEDS: METOCLOPRAMIDE 10 MG/2 ML VIAL IV SCH ×4 (00:03→17:06)
[2021-04-08] MEDS: 0.9 % SODIUM CHLORIDE 10 ML SYRINGE IV SCH ×2 (06:02→12:19)
[2021-04-08 07:05] LABS: Basophils # (Auto) 0.04 K/mcL (0.00-0.20); Basophils % (Auto) 0.5 % (0.0-2.0); Eosinophils # (Auto) 0.09 K/mcL (0.00-0.70); Eosinophils % (Auto) 1.1 % (0.0-7.0); Hematocrit 28.1 % (36.0-48.0); Lymphocytes % (Auto) 20.1 % (15.0-49.0); Mean Cell Volume 99.3 fL (80.0-100.0); Mean Platelet Volume 9.6 fL (7.4-10.4); Monocytes # (Auto) 0.83 K/mcL (0.10-0.90); Monocytes % (Auto) 10.4 % (1.0-12.0); Neutrophils % (Auto) 67.9 % (38.0-78.0); Platelet Count 431 K/mcL (140-440); RBC 2.83 M/mcL (4.00-5.20); Red Cell Distribution Width 13.8 % (11.5-14.5)
--- NOTE | 2021-04-08 07:38 | XRay Report ---
CLINICAL INFORMATION: Follow-up of colon dilation COMPARISON: 04/06/2021. FINDINGS: Stomach and small bowel remain decompressed. Small amount of gas seen within the colon. No evidence of bowel obstruction. Surgical drain overlies the false pelvis. No free air or soft tissue mass. IMPRESSION: Negative Interpreted and Authenticated by: Wes Hilliard 04/08/21
[2021-04-08 07:50] LABS: ALT/SGPT 7 U/L (<40); AST/SGOT 10 U/L (<32); Albumin 3.1 gm/dL (3.2-5.2); Albumin/Globulin Ratio 1.1 (1.0-2.3); Alkaline Phosphatase 60 U/L (39-117); Bilirubin,Direct < 0.2 mg/dL (0-0.3); Bilirubin,Total 0.5 mg/dL (0.1-1.0); Blood Urea Nitrogen 3 mg/dL (8-23); Calcium 9.3 mg/dL (8.6-10.4); Carbon Dioxide 33 mmol/L (22-30); Chloride 100 mmol/L (96-108); Globulin 2.7 gm/dL (2.2-3.7); Glomerular Filtration Rate 109; Glucose 108 mg/dL (70-105); Lactate Dehydrogenase 177 U/L (135-225); Phosphorous 3.7 mg/dL (2.5-4.5); Triglycerides 92 mg/dL (<150); Uric Acid 2.8 mg/dL (2.5-8.0)
[2021-04-08] MEDS: POLYETHYLENE GLYCOL 3350 17 GM PACKET PO SCH ×2 (08:10→19:26)
[2021-04-08] MEDS: DOCUSATE SODIUM 100 MG CAPSULE PO SCH ×2 (08:10→19:26)
[2021-04-08] MEDS: LEVOFLOXACIN 500 MG/100 ML BAG IV SCH (08:10)
--- NOTE | 2021-04-08 11:41 | General Surgery Progress Note ---
SUBJECTIVE Subjective Patient information: Note initiated : 04/08/21 at 11:36 am Service Date, if different from initiated Date: [] Patient: Liya Song 65 y/o F admitted on 03/29/21 for Colostomy Closure. Chief Complaint: [] Principal diagnosis: Colostomy closure Interval history: Patient is doing well. She had some nausea earlier today but that has resolved. She is tolerating full liquid diet and is passing large vol ume of flatus. She has not had a bowel movement so far. Potassium 3.4, BUN 3, creatinine 0.4, white blood count 8, hemoglobin 9, hematocrit 28.1. Abdominal x-ray shows small amount of gas in the ascending colon but no dilation of stomach or small bowel or right colon. She has been witnessed to pass a large volume of flatus. There is no evidence of leak through her pelvic drain. She is now 10 days postoperative and she did have an adequate seal. Constitutional Vitals: Vital Signs Temp Pulse Resp BP Pulse Ox 97.8 F 100 H 16 137/82 93 04/08/21 07:38 04/08/21 07:38 04/08/21 07:38 04/08/21 07:38 04/08/21 07:38 Period Temp Pulse Resp BP Sys/Manjarrez Pulse Ox Last 24 Hr 97.4 F-99.3 F 91-116 16-18 137-144/57-82 92-96 Intake and Output 04/07/21 04/08/21 04/08/21 21:59 05:59 13:59 Intake Total 420 Output Total 375 150 Balance 45 -150 Weight 183 lb 14.4 oz Intake & Output: Intake & Output 04/07/21 04/08/21 04/08/21 21:59 05:59 13:59 Intake Total 420 Output Total 375 150 Balance 45 -150 Weight 183 lb 14.4 oz Intake: Oral 420 Output: Void Amount 375 150 Other: Meal Breakfast Percent of Meal Consumed 25% Feeding Ability Independent Urine Appearance Clear Clear Urine Color Dark Yellow Pale Urine Odor Normal Normal # Voids 1 Head Head exam: Present atraumatic, normal inspection and normocephalic Eye Eye exam: Present EOMI Pupils: Present normal accommodation and PERRL ENT ENT exam: Present mucous membranes moist and normal oropharynx Neck Neck exam: Present full ROM and normal inspection; Absent lymphadenopathy and tenderness Respiratory Respiratory exam: Present normal respiratory exam and CTAB; Absent rales, rhonchi and wheezes Cardiovascular Cardiovascular exam: Present normal rate and rhythm, JVD, RRR, +S1 and +S2; Absent gallop GI/Abdominal GI/Abdominal exam: Present diminished bowel sounds (Hypoactive bowel sounds), distended (Moderate distention) and tenderness (Moderate tenderness of the incision); Absent guarding Additional comments: MIC drainage is slightly bloody Extremities Exam Extremities exam: Present full ROM, normal inspection and neurovascular intact; Absent pedal edema Neurological Exam Neurological exam: Present alert, CN II-XII intact, oriented X3 and reflexes normal Psychiatric Psychiatric exam: Present normal mood A/P Assessment and plan (1) Colostomy status: Status: Acute Narrative A/P Narrative: Patient is doing well. She will be discharged on full liquid diet for another week until she starts to have regular bowel movements. She will be continued on Reglan and MiraLAX with follow-up in the office on of next week. Probable discharge in the morning Time Spent With Patient Time: Total time spent is greater than 50% in coordination of care (as documented) at patient's floor/unit and/or counseling patient:
--- NOTE | 2021-04-08 11:43 | Discharge Summary ---
Discharge Provider Provider Patient information: Note initiated : 04/08/21 at 11:41 am Service Date, if different from initiated Date: [] Patient: Liya Song 65 y/o F admitted on 03/29/21 for Colostomy Closure. Chief Complaint: [] Date of admission: 03/29/21 06:08 Discharge date: 04/09/21 Primary care physician: Nehal Sepulveda PA-C Admitting clinician: Get Romano Attending physician on admission: Get Romano Attending physician on discharge: Get Romano COURSE Hospital Course Hospital course: 65-year-old female with history of severe diverticulitis with perforation and pelvic abscess. She was explored on 11 November 2020 with finding of the large pelvic abscess with large phlegmon of the pelvic organs. She underwent sigmoid colectomy with Hughes's procedure and drainage. She has gradually improved. Follow-up CT does not show any residual abscess. Patient was admitted to have stoma takedown with 3 anastomosis. On surgical evaluation she had extensive pelvic adhesions with a very fibrotic foreshortening rectal stump. It required extensive meticulous dissection to dissect out the rectal stump. It was marginally acceptable for reanastomosis. Since there was no evidence of ongoing infection a very careful to layered anastomosis was carried out understanding that it probably would take time for the rectum to open. She is passing flatus daily and most of the distention of the proximal colon and small bowel has resolved. She has not been progressed to a regular diet yet but she has tolerated full liquids without difficulty and is passing flatus. She has a pelvic drain which is only showed small amount of bloody leak without any evidence of feculent leakage. She is now 12 days post procedure and it is felt that she is stable enough to be discharged home on a full liquid diet with slow progression of diet as I follow her in the office weekly Discharge diagnosis: Colostomy takedown Secondary discharge diagnosis: Severe chronic fibrosis of rectal stump. Chronic obstructive lung disease Gastroesophageal reflux disease Hypertension Reason for admission: Postoperative colostomy takedown Procedures: Colostomy takedown with 3 anastomosis Pertinent studies/significant findings: None Complications: None Time Spent with Patient Time attestation: Total time spent providing and/or coordinating discharge services: Physical Examination Vital Signs Vital signs: Temp Pulse Resp BP Pulse Ox 97.8 F 100 H 16 137/82 93 04/08/21 07:38 04/08/21 07:38 04/08/21 07:38 04/08/21 07:38 04/08/21 07:38 General physical appearance General physical exam: well developed, well nourished, no distress and no pain Eyes Eye exam: PERRL and normal ocular movement ENT ENT exam: normal mucosa and no congestion; negative no hearing loss Head Head exam IM: Present atraumatic, normal inspection and normocephalic Neck Neck exam: no masses, no bruits, trachea midline, no lymphadenopathy and no venous distension Cardiovascular Cardiovascular exam IM: Present normal rate and rhythm, RRR, +S1 and +S2; Absent JVD, systolic murmur and tachycardia Respiratory Respiratory exam: normal expansion, normal respiratory effort and clear to auscultation Integumentary Integumentary: Present no rash, no growths and no abnormal pigmentation Neurologic Neurologic: Present normal coordination and normal sensation Musculoskeletal Musculoskeletal: Present normal gait and normal posture Psychiatric Psychiatric: Present oriented to time, oriented to person, oriented to place, speech is normal and memory intact Discharge Plan Patient/Caregiver Discharge Instructions Activity: increase activity as tolerated Diet: Full Liquid Prescriptions: New oxycodone-acetaminophen [Endocet] 10-325 mg Tablet 1 tab PO Q4H PRN (Reason: Pain) Qty: 40 RF: 0 Continued escitalopram oxalate 10 mg tablet 10 mg PO DAILY Qty: 90 RF: 0 rosuvastatin 20 mg tablet 20 mg PO QDAY Qty: 90 RF: 2 losartan 50 mg tablet 50 mg PO QDAY Qty: 90 RF: 3 bupropion HCl 150 mg tablet extended release 24 hr 150 mg PO QDAY Qty: 90 RF: 0 loratadine [Claritin] 10 mg tablet 10 mg PO QDAY Qty: 90 RF: 0 propranolol 60 mg capsule,extended release 24 hr 60 mg PO QDAY Qty: 90 RF: 0 sucralfate [Carafate] 1 gram tablet 1 g PO BID Qty: 120 RF: 1 Calcium 600 + D(3) 600 mg calcium- 200 unit Capsule 1 cap PO DAILY RF: 0 omega-3 fatty acids Capsule 2,000 mg PO QDAY RF: 0 Follow Up Plan Follow up with: Get Romano MD [Physician] - 04/13/21 (Please contact office on Saturday to verify appointment on ) Patient Disposition: Home Health Service Prognosis: Good Rehab Potential: Good I certify that the patient requires SNF services: No Overall status at discharge: patient is progressing back to baseline Discharge Orders: Discharge Order (Routine); Ordered 04/09/21 Ordered By: Get Romano Pending Pending Pending: Resuscitation Status Full Code Diet Full Liquid Diet Start SatApr 06 122 Benzocaine (Benzocaine 1 Pomeroy Bottle) 1 spray TOPICAL Q2HP PRN PRN Reason: Sore Throat Last Admin: 03/29/21 21:00 Dose: 1 spray Documented by: LISA Docusate Sodium (Docusate Sodium 100 Mg Capsule) 100 mg PO BID LANCE Last Admin: 04/08/21 08:10 Dose: 100 mg Documented by: Admin: 04/07/21 20:57 Dose: 100 mg Documented by: Admin: 04/07/21 08:29 Dose: 100 mg Documented by: Admin: 04/06/21 20:48 Dose: 100 mg Documented by: Admin: 04/06/21 09:00 Dose: 100 mg Documented by: Admin: 04/05/21 20:53 Dose: 100 mg Documented by: Admin: 04/05/21 08:54 Dose: 100 mg Documented by: Admin: 04/04/21 19:59 Dose: 100 mg Documented by: Admin: 04/04/21 09:30 Dose: 100 mg Documented by: Admin: 04/03/21 20:40 Dose: 100 mg Documented by: Admin: 04/03/21 18:04 Dose: 100 mg Documented by: Admin: 04/02/21 19:39 Dose: 100 mg Documented by: Admin: 04/02/21 08:23 Dose: 100 mg Documented by: Admin: 04/01/21 23:38 Dose: Not Given Documented by: Admin: 04/01/21 10:08 Dose: Not Given Documented by: Admin: 03/31/21 20:52 Dose: Not Given Documented by: Admin: 03/31/21 08:25 Dose: Not Given Documented by: Admin: 03/30/21 20:46 Dose: Not Given Documented by: Admin: 03/30/21 09:15 Dose: Not Given Documented by: Admin: 03/29/21 21:08 Dose: Not Given Documented by: LISA Hydromorphone HCl (Hydromorphone 1 Mg/Ml Syringe) 1 mg IV Q2HP PRN; Protocol PRN Reason: Per Pain Protocol Last Admin: 04/07/21 08:29 Dose: 1 mg Documented by: Admin: 04/07/21 03:42 Dose: 1 mg Documented by: Admin: 04/06/21 23:42 Dose: 1 mg Documented by: Admin: 04/06/21 20:55 Dose: 1 mg Documented by: Admin: 04/06/21 17:42 Dose: 1 mg Documented by: Admin: 04/06/21 13:14 Dose: 1 mg Documented by: Admin: 04/06/21 08:04 Dose: 1 mg Documented by: Admin: 04/06/21 03:34 Dose: 1 mg Documented by: Admin: 04/06/21 00:07 Dose: 1 mg Documented by: Admin: 04/05/21 21:23 Dose: 1 mg Documented by: Admin: 04/05/21 17:13 Dose: 1 mg Documented by: Admin: 04/05/21 08:53 Dose: 1 mg Documented by: Admin: 04/05/21 03:15 Dose: 1 mg Documented by: Admin: 04/04/21 19:32 Dose: 1 mg Documented by: Admin: 04/04/21 16:10 Dose: 1 mg Documented by: Admin: 04/04/21 09:30 Dose: 1 mg Documented by: Admin: 04/04/21 04:41 Dose: 1 mg Documented by: Admin: 04/03/21 21:56 Dose: 1 mg Documented by: Admin: 04/03/21 17:56 Dose: 1 mg Documented by: Admin: 04/03/21 12:10 Dose: 1 mg Documented by: Admin: 04/03/21 06:47 Dose: 1 mg Documented by: Admin: 04/02/21 22:40 Dose: 1 mg Documented by: Admin: 04/02/21 19:35 Dose: 1 mg Documented by: Admin: 04/02/21 16:29 Dose: 1 mg Documented by: Admin: 04/02/21 11:47 Dose: 1 mg Documented by: Admin: 04/02/21 04:39 Dose: 1 mg Documented by: Admin: 04/01/21 22:59 Dose: 1 mg Documented by: Admin: 04/01/21 19:26 Dose: 1 mg Documented by: Admin: 04/01/21 13:54 Dose: 1 mg Documented by: Admin: 04/01/21 10:13 Dose: 1 mg Documented by: Admin: 04/01/21 07:50 Dose: 1 mg Documented by: Admin: 04/01/21 01:59 Dose: 1 mg Documented by: Admin: 04/01/21 00:01 Dose: 1 mg Documented by: Admin: 03/31/21 20:49 Dose: 1 mg Documented by: Admin: 03/31/21 17:08 Dose: 1 mg Documented by: ASMHillary Admin: 03/31/21 13:51 Dose: 1 mg Documented by: Admin: 03/31/21 10:01 Dose: 1 mg Documented by: Admin: 03/31/21 06:48 Dose: 1 mg Documented by: Admin: 03/31/21 04:31 Dose: 1 mg Documented by: Admin: 03/31/21 02:29 Dose: 1 mg Documented by: Admin: 03/31/21 00:15 Dose: 1 mg Documented by: Admin: 03/30/21 20:46 Dose: 1 mg Documented by: Admin: 03/30/21 17:36 Dose: 1 mg Documented by: Admin: 03/30/21 12:17 Dose: 1 mg Documented by: Admin: 03/30/21 06:00 Dose: 1 mg Documented by: LISA Levofloxacin (Levaquin) 500 mg in 100 mls @ 100 mls/hr IV DAILY LANCE; Protocol Last Admin: 04/08/21 08:10 Dose: 100 mls/hr Documented by: Infusion: 04/07/21 10:10 Dose: 0 mls/hr Documented by: Admin: 04/07/21 08:30 Dose: 100 mls/hr Documented by: Infusion: 04/06/21 10:00 Dose: 0 mls/hr Documented by: Admin: 04/06/21 09:00 Dose: 100 mls/hr Documented by: [email or web address] Infusion: 04/05/21 09:55 Dose: 0 mls/hr Documented by: FMMariusz Admin: 04/05/21 08:54 Dose: 100 mls/hr Documented by: Infusion: 04/04/21 15:23 Dose: 0 mls/hr Documented by: Admin: 04/04/21 09:29 Dose: 100 mls/hr Documented by: Infusion: 04/03/21 18:40 Dose: 100 mls/hr Documented by: Admin: 04/03/21 09:17 Dose: 100 mls/hr Documented by: [email or web address] Infusion: 04/02/21 09:23 Dose: 0 mls/hr Documented by: Admin: 04/02/21 08:23 Dose: 100 mls/hr Documented by: Infusion: 04/01/21 15:17 Dose: 0 mls/hr Documented by: Admin: 04/01/21 10:08 Dose: 100 mls/hr Documented by: Infusion: 03/31/21 10:15 Dose: 0 mls/hr Documented by: Admin: 03/31/21 09:12 Dose: 100 mls/hr Documented by: Infusion: 03/30/21 10:20 Dose: 0 mls/hr Documented by: Admin: 03/30/21 09:16 Dose: 100 mls/hr Documented by: BETY Metoclopramide HCl (Metoclopramide 10 Mg/2 Ml Vial) 10 mg IV Q6 LANCE Last Admin: 04/08/21 06:02 Dose: 10 mg Documented by: Admin: 04/08/21 00:03 Dose: 10 mg Documented by: Admin: 04/07/21 18:12 Dose: 10 mg Documented by: Admin: 04/07/21 12:42 Dose: 10 mg Documented by: Admin: 04/07/21 06:08 Dose: 10 mg Documented by: Admin: 04/06/21 23:38 Dose: 10 mg Documented by: Admin: 04/06/21 17:39 Dose: 10 mg Documented by: Admin: 04/06/21 11:47 Dose: 10 mg Documented by: Admin: 04/06/21 05:26 Dose: 10 mg Documented by: Admin: 04/05/21 23:37 Dose: 10 mg Documented by: Admin: 04/05/21 17:49 Dose: 10 mg Documented by: Admin: 04/05/21 11:46 Dose: 10 mg Documented by: Admin: 04/05/21 06:09 Dose: 10 mg Documented by: Admin: 04/04/21 23:30 Dose: 10 mg Documented by: Admin: 04/04/21 17:32 Dose: 10 mg Documented by: Admin: 04/04/21 12:10 Dose: 10 mg Documented by: Admin: 04/04/21 05:38 Dose: 10 mg Documented by: Admin: 04/03/21 23:55 Dose: 10 mg Documented by: Admin: 04/03/21 17:57 Dose: 10 mg Documented by: Admin: 04/03/21 11:59 Dose: 10 mg Documented by: ROSS Ondansetron HCl (Ondansetron 4 Mg/2 Ml Vial) 4 mg IV Q6HP PRN PRN Reason: Nausea And Vomiting Last Admin: 04/02/21 01:00 Dose: 4 mg Documented by: Admin: 03/30/21 05:32 Dose: 4 mg Documented by: LISA Oxycodone HCl (Oxycodone Hcl 5 Mg Tablet) 10 mg PO Q4HP PRN; Protocol PRN Reason: Per Pain Protocol Last Admin: 04/08/21 10:47 Dose: 10 mg Documented by: Admin: 04/08/21 06:06 Dose: 10 mg Documented by: Admin: 04/08/21 00:02 Dose: 10 mg Documented by: Admin: 04/07/21 20:04 Dose: 10 mg Documented by: Admin: 04/07/21 14:43 Dose: 10 mg Documented by: MG Polyethylene Glycol (Polyethylene Glycol 3350 17 Gm Packet) 17 gm PO BID [facility] Admin: 04/08/21 08:10 Dose: 17 gm Documented by: Admin: 04/07/21 20:57 Dose: 17 gm Documented by: Admin: 04/07/21 11:13 Dose: Not Given Documented by: MG Senna (Sennosides 1 Tablet) 2 tab PO HS [facility] Admin: 04/07/21 20:57 Dose: 2 tab Documented by: Admin: 04/06/21 20:47 Dose: 2 tab Documented by: Admin: 04/05/21 20:53 Dose: 2 tab Documented by: Admin: 04/04/21 19:59 Dose: 2 tab Documented by: Admin: 04/03/21 20:40 Dose: 2 tab Documented by: Admin: 04/02/21 19:39 Dose: 2 tab Documented by: Admin: 04/01/21 23:38 Dose: Not Given Documented by: Admin: 03/31/21 20:52 Dose: Not Given Documented by: Admin: 03/30/21 20:46 Dose: Not Given Documented by: Admin: 03/29/21 21:08 Dose: Not Given Documented by: LISA Sodium Chloride (0.9 % Sodium Chloride 10 Ml Syringe) 10 ml IV Q8 [facility] Admin: 04/08/21 06:02 Dose: 10 ml Documented by: Admin: 04/07/21 20:58 Dose: 10 ml Documented by: Admin: 04/07/21 12:42 Dose: 10 ml Documented by: Admin: 04/07/21 06:08 Dose: Not Given Documented by: Admin: 04/06/21 23:05 Dose: 10 ml Documented by: Admin: 04/06/21 14:13 Dose: Not Given Documented by: Admin: 04/06/21 05:26 Dose: Not Given Documented by: Admin: 04/05/21 20:53 Dose: Not Given Documented by: Admin: 04/05/21 13:49 Dose: Not Given Documented by: Admin: 04/05/21 07:32 Dose: Not Given Documented by: Admin: 04/04/21 22:06 Dose: Not Given Documented by: Admin: 04/04/21 16:10 Dose: Not Given Documented by: Admin: 04/04/21 05:38 Dose: 10 ml Documented by: Admin: 04/03/21 21:32 Dose: Not Given Documented by: Admin: 04/03/21 16:50 Dose: Not Given Documented by: Admin: 04/03/21 06:11 Dose: Not Given Documented by: Admin: 04/02/21 21:00 Dose: Not Given Documented by: Admin: 04/02/21 13:47 Dose: 10 ml Documented by: Admin: 04/02/21 04:39 Dose: 10 ml Documented by: Admin: 04/01/21 23:38 Dose: 10 ml Documented by: Admin: 04/01/21 14:12 Dose: Not Given Documented by: Admin: 04/01/21 06:03 Dose: Not Given Documented by: Admin: 03/31/21 22:47 Dose: Not Given Documented by: Admin: 03/31/21 13:44 Dose: Not Given Documented by: Admin: 03/31/21 05:37 Dose: Not Given Documented by: Admin: 03/30/21 22:47 Dose: Not Given Documented by: Admin: 03/30/21 15:08 Dose: Not Given Documented by: Admin: 03/30/21 05:11 Dose: Not Given Documented by: Admin: 03/30/21 03:54 Dose: 10 ml Documented by: Admin: 03/30/21 01:26 Dose: 10 ml Documented by: Admin: 03/29/21 14:21 Dose: Not Given Documented by: [email or web address] Shift Summary 04/08/21 05:26 Shift Summary by Cesilia Hassan alert and oriented x4. Slept good this shift. Medicated with Roxicodone for pain with good effect. IV on LFA and RAC both saline locked. Midline incision and left abd incision- regla, gauze, tegaderm dressing with shadow drainage. MIC on RLQ minimal output. Up ad anton in room. Passing flatus, no BM this shift. OH 90-100's bpm. Initialized on 04/08/21 05:26 - END OF NOTE
[2021-04-08] MEDS: SENNOSIDES 1 TABLET PO SCH (19:25)
[2021-04-09] MEDS: oxyCODONE HCL 5 MG TABLET PO PRN ×3 (00:09→10:11)
[2021-04-09] MEDS: 0.9 % SODIUM CHLORIDE 10 ML SYRINGE IV SCH ×2 (00:10→05:58)
[2021-04-09] MEDS: METOCLOPRAMIDE 10 MG/2 ML VIAL IV SCH ×3 (00:10→11:35)
[2021-04-09 06:46] LABS: Basophils # (Auto) 0.05 K/mcL (0.00-0.20); Basophils % (Auto) 0.6 % (0.0-2.0); Eosinophils # (Auto) 0.11 K/mcL (0.00-0.70); Eosinophils % (Auto) 1.3 % (0.0-7.0); Hematocrit 28.2 % (36.0-48.0); Hemoglobin 9.1 g/dL (12.0-15.0); Lymphocytes # (Auto) 1.93 K/mcL (1.50-4.80); Mean Cell Volume 98.9 fL (80.0-100.0); Mean Corpuscular HGB Conc 32.3 g/dL (31.0-36.0); Mean Platelet Volume 9.8 fL (7.4-10.4); Monocytes # (Auto) 0.76 K/mcL (0.10-0.90); Monocytes % (Auto) 8.7 % (1.0-12.0); Neutrophils % (Auto) 67.4 % (38.0-78.0); Platelet Count 478 K/mcL (140-440); RBC 2.85 M/mcL (4.00-5.20); Red Cell Distribution Width 13.9 % (11.5-14.5); WBC 8.8 K/mcL (4.5-11.0)
[2021-04-09 07:20] LABS: ALT/SGPT 7 U/L (<40); AST/SGOT 12 U/L (<32); Albumin 3.1 gm/dL (3.2-5.2); Alkaline Phosphatase 64 U/L (39-117); Bilirubin,Direct < 0.2 mg/dL (0-0.3); Bilirubin,Total 0.4 mg/dL (0.1-1.0); Blood Urea Nitrogen 4 mg/dL (8-23); Calcium 9.6 mg/dL (8.6-10.4); Carbon Dioxide 33 mmol/L (22-30); Chloride 97 mmol/L (96-108); Globulin 3.1 gm/dL (2.2-3.7); Glomerular Filtration Rate 101; Glucose 117 mg/dL (70-105); Lactate Dehydrogenase 207 U/L (135-225); Phosphorous 3.9 mg/dL (2.5-4.5); Triglycerides 89 mg/dL (<150); Uric Acid 2.6 mg/dL (2.5-8.0)
[2021-04-09] MEDS: POLYETHYLENE GLYCOL 3350 17 GM PACKET PO SCH (08:00)
[2021-04-09] MEDS: DOCUSATE SODIUM 100 MG CAPSULE PO SCH (08:00)
--- NOTE | 2021-04-09 08:07 | XRay Report ---
CLINICAL INFORMATION: Follow-up of colon dilation COMPARISON: 04/08/2021 FINDINGS: Stomach and small bowel remain decompressed. Small amount of gas seen within the colon. No evidence of bowel obstruction. Surgical drain overlies the false pelvis. No free air or soft tissue mass. IMPRESSION: Negative Interpreted and Authenticated by: Wes Hilliard 04/09/21
[2021-04-09] MEDS: LEVOFLOXACIN 500 MG/100 ML BAG IV SCH (10:12)
== END 2021-04-09 14:00 | disposition home health service (06) | DRG 346 ==
LOC: MEDSUR 06:08
PROVIDERS: ADMIT Family Medicine Adult Medicine; ATTEND Family Medicine Adult Medicine

== ENCOUNTER 2022-02-14 18:57 | Inpatient (IN) ==
[2022-02-14] MEDS ORDERED: 0.9 % SODIUM CHLORIDE 1,000 ML IV ONE ×2 (19:11→22:33)
[2022-02-14] MEDS ORDERED: fentaNYL 100 MCG/2 ML VIAL IV ONE ×3 (19:33→20:07)
[2022-02-14 19:52] LABS: Basophils # (Auto) 0.08 K/mcL (0.00-0.30); Basophils % (Auto) 1.1 % (0.0-2.0); Eosinophils # (Auto) 0.08 K/mcL (0.00-0.70); Eosinophils % (Auto) 1.1 % (0.0-7.0); Hematocrit 40.1 % (34.1-44.9); Hemoglobin 13.5 g/dL (11.2-15.7); Lymphocytes # (Auto) 1.62 K/mcL (1.50-4.80); Lymphocytes % (Auto) 22.4 % (15.5-49.0); Mean Cell Volume 97.8 fL (80.0-100.0); Mean Corpuscular HGB Conc 33.7 g/dL (31.0-36.0); Mean Platelet Volume 9.5 fL (7.4-10.4); Monocytes # (Auto) 0.55 K/mcL (0.10-0.90); Monocytes % (Auto) 7.6 % (1.0-12.0); Neutrophils % (Auto) 67.8 % (38.0-78.0); Platelet Count 187 K/mcL (140-440); WBC 7.2 K/mcL (4.5-11.0)
[2022-02-14] MEDS ORDERED: ONDANSETRON 4 MG/2 ML VIAL ONE (20:06)
[2022-02-14 20:15] LABS: Blood Urea Nitrogen 18 mg/dL (8-23); Calcium 9.6 mg/dL (8.6-10.4); Carbon Dioxide 18 mmol/L (22-30); Chloride 98 mmol/L (96-108); Glomerular Filtration Rate 52; Glucose 83 mg/dL (70-105)
[2022-02-14] MEDS ORDERED: ONDANSETRON 4 MG/2 ML VIAL IV ONE ×2 (20:19→22:36)
[2022-02-14 21:17] LABS: INR 0.9 (0.9-1.1); Prothrombin Time 12.8 sec (11.9-14.5)
--- NOTE | 2022-02-14 21:44 | Emergency Department Note ---
Trauma HPI General Chief Complaint: Trauma Stated Complaint: left ankle deformity, fall Time Seen by Provider: 02/14/22 18:58 Source: EMS Mode of arrival: EMS Limitations: no limitations History of Present Illness HPI Narrative: Narrative: 66-year-old female history of hypertension hyperlipidemia and what sounds like frequent orthostatic lightheadedness presents to ED with acute left ankle injury. She stood up and felt very lightheaded and almost passed out causing her to stumble and roll her ankle severely. She did fall and lightly strike her head. Following this she did have an episode nausea vomiting. Denies any blood thinners. She had no chest pain shortness of breath palpitations or other preceding symptoms. Patient and family member report feeling lightheaded or orthostatic when she stands up is not new for her and this is a chronic very frequent process. She denies any hip or knee pain simply obvious left ankle pain and deformity no distal numbness tingling. No other complaints or injuries. Related Data Home Medications Medication Instructions Recorded Confirmed calcium carbonate 600 mg-vitamin 1 cap PO DAILY 11/09/20 12/21/21 D3 5 mcg (200 unit) capsule (Calcium 600 + D(3)) omega-3 fatty acids 2,000 mg PO QDAY 03/23/21 12/21/21 bupropion HCl 150 mg 24 hr tablet, 150 mg PO QAM 11/13/21 12/21/21 extended release escitalopram oxalate 10 mg tablet 10 mg PO QAM 11/13/21 12/21/21 propranolol 60 mg capsule,24 60 mg PO QAM 11/13/21 12/21/21 hr,extended release Previous Rx's Medication Instructions Recorded loratadine 10 mg tablet (Claritin) 10 mg PO QDAY #90 tab 08/14/21 pantoprazole 40 mg tablet,delayed 40 mg PO QDAY #90 tab 08/14/21 release rosuvastatin 20 mg tablet 20 mg PO QDAY #90 tab 10/02/21 sucralfate 1 gram tablet (Carafate) 1 g PO BID #120 tab 11/20/21 losartan 50 mg tablet 50 mg PO QAM #90 tab 01/04/22 Allergies Allergy/AdvReac Type Severity Reaction Status Date / Time Penicillins Allergy Intermediate Rash Verified 12/21/21 13:40 Review of Systems ROS ROS Narrative: Narrative: All systems ED: reviewed and negative except as stated. PFSH Narrative Patient History Narrative: Narrative: Medical/Surgical/Family History All Active Problems (Updated 02/14/22 @ 23:05 by Leroy Kaufman DO) Near syncope (Acute) Ankle fracture, left (Acute) Syncope (Acute) Closed left ankle fracture (Acute) Hypersomnia (Chronic) Postprandial bloating (Acute) Osteoarthritis of right knee (Chronic) COVID-19 vaccine series declined (Acute 09/21/21) Medicare annual wellness visit, initial (Acute) S/P colostomy takedown (Acute) Recurrent abdominal pain (Acute) Colostomy status (Acute) Recurrent falls (Acute) Vulvovaginitis gely albicans (Acute) Pelvic abscess (Acute) Acute diverticulitis of intestine (Acute) COPD (chronic obstructive pulmonary disease) (Acute) Rectal bleeding (Acute) Colonic mass (Acute) GERD (gastroesophageal reflux disease) (Acute) Change in stool (Acute) Nausea & vomiting (Acute) Tremor (Acute) DJD (degenerative joint disease) (Acute) Stomach ulcer (Acute) Joint pain (Acute) High cholesterol (Acute) Hypertension (Acute) Depression (Acute) Arthritis (Acute) Acid reflux (Acute) Left knee sprain (Acute) Bronchitis with bronchospasm (Acute) Acute exacerbation of chronic obstructive airways disease (Acute) Medical History Acid reflux Acute exacerbation of chronic obstructive airways disease Arthritis Bronchitis with bronchospasm COVID-19 vaccine series declined (09/21/21) Depression DJD (degenerative joint disease) High cholesterol History of diverticulitis Hypertension Joint pain Left knee sprain Medicare annual wellness visit, initial Stomach ulcer Surgical History History of colectomy 11/11/2020-sigmoid colectomy with Jose's pouch History of colonoscopy History of colostomy reversal 03/29/2021 Family History Father Lung cancer Alzheimer disease Mother Type 2 diabetes mellitus Other Arthritis Social History Smoking Status: Former smoker Alcohol Intake Frequency: 0-2 drinks per day Substance Use: does not use Exam Narrative Narrative: Narrative: Constitutional: normally developed, no acute distress . Head: Normocephalic, atraumatic, Eyes: No Icterus, ENT: Moist mucus membranes, Neck: Supple, no midline tenderness Cardiac: Normal heart sounds, palpable radial and dorsalis pedis pulses, slight lower extremity edema. Pulmonary: Normal respiratory effort. Breath sounds clear, no wheeze, rhonchi, rales, Gastrointestinal: Abdomen soft, non-distended, non-tender, Musculoskeletal: Obvious deformity of left ankle but no open fracture, does wiggle toes has sensation intact and brisk cap refill in all toes with palpable pulses. Otherwise knee is unremarkable nontender and no pain with logroll at the hip, right lower extremity unremarkable as is the bilateral upper extremities full range of motion nontender. Skin: warm, dry Neuro: Alert and oriented. General Limitations: no limitations Course Vital Signs Vital signs: Vital Signs Temperature 37.1 C 02/14/22 19:01 Pulse Rate 80 02/14/22 19:01 Respiratory Rate 20 02/14/22 19:01 Pulse Oximetry (%) 99 02/14/22 19:01 Temperature 36.9 C 02/14/22 19:11 Pulse Rate 61 02/14/22 22:51 Respiratory Rate 13 02/14/22 22:51 Blood Pressure 98/62 02/14/22 22:51 Pulse Oximetry (%) 96 02/14/22 22:51 MDM MDM Narrative Medical decision making narrative: Narrative: Patient had a near syncopal event when she stood up, which is very chronic for the patient - rolled her ankle severely with obvious deformity. Will obtain fracture as well as work-up Twelve-lead EKG sinus rhythm heart rate 72 [place], QRS QTC within normal, is a bit of artifact, no STEMI criteria, T wave inversion in lead III Left ankle x-ray per my interpretation comminuted displaced angulated distal tib-fib fracture. Fracture closed reduction and splinting PROCEDURE NOTE: Patient's left ankle fracture was gradually reduced with gentle traction. The patient was placed in a posterior short leg and stirrup plaster splint. The patient report improvement in symptoms. Following splinting she was neurovascularly intact. pain improved. Spoke with Dr. Ordonez orthopedics, who also came and evaluated the patient in person. Requests hospitalist admission likely OR fixation in the morning did request preop CT CT C-spine no traumatic findings CT of the head no acute intracranial hemorrhage or ischemia. CT of her lower extremity shows acute Lott C left ankle fracture. These preliminary reads by direct radiology CBC unremarkable electrolytes show slightly elevated anion gap 19 bicarb 18, troponin 0 Chest x-ray per my interpretation no obvious acute process Spoke with hospitalist who accepts admission Lab Data Result diagrams: 02/14/22 19:24 02/14/22 19:11 Labs: Lab Results 02/14/22 02/14/22 02/14/22 Range/Units 19:11 19:11 19:23 WBC (4.5-11.0) K/mcL RBC (3.59-5.38) M/mcL Hgb (11.2-15.7) g/dL Hct (34.1-44.9) % MCV (80.0-100.0) fL MCH (26.0-34.0) pg MCHC (31.0-36.0) g/dL RDW (11.5-14.5) % Plt Count (140-440) K/mcL MPV (7.4-10.4) fL Neut % (Auto) (38.0-78.0) % Lymph % (Auto) (15.5-49.0) % [place] % (Auto) (1.0-12.0) % Eos % (Auto) (0.0-7.0) % Baso % (Auto) (0.0-2.0) % Lymph # (Auto) (1.50-4.80) K/mcL [place] # (Auto) (0.10-0.90) K/mcL Eos # (Auto) (0.00-0.70) K/mcL Baso # (Auto) (0.00-0.30) K/mcL Absolute Neutrophils (1.80-8.00) K/mcL PT 12.8 (11.9-14.5) sec INR 0.9 (0.9-1.1) Sodium 135 (133-145) mmol/L Potassium 3.6 (3.3-5.1) mmol/L Chloride 98 (96-108) mmol/L Carbon Dioxide 18 L (22-30) mmol/L Anion Gap 19.0 H (8.0-16.0) BUN 18 (8-23) mg/dL Creatinine 1.1 (0.6-1.1) mg/dL GFR Calculation 52 Glucose 83 (70-105) mg/dL Calcium 9.6 (8.6-10.4) mg/dL POC Troponin I 0 L (0.02-0.08) 02/14/22 Range/Units 19:24 WBC 7.2 (4.5-11.0) K/mcL RBC 4.10 (3.59-5.38) M/mcL Hgb 13.5 (11.2-15.7) g/dL Hct 40.1 (34.1-44.9) % MCV 97.8 (80.0-100.0) fL MCH 32.9 (26.0-34.0) pg MCHC 33.7 (31.0-36.0) g/dL RDW 14.0 (11.5-14.5) % Plt Count 187 (140-440) K/mcL MPV 9.5 (7.4-10.4) fL Neut % (Auto) 67.8 (38.0-78.0) % Lymph % (Auto) 22.4 (15.5-49.0) % [place] % (Auto) 7.6 (1.0-12.0) % Eos % (Auto) 1.1 (0.0-7.0) % Baso % (Auto) 1.1 (0.0-2.0) % Lymph # (Auto) 1.62 (1.50-4.80) K/mcL [place] # (Auto) 0.55 (0.10-0.90) K/mcL Eos # (Auto) 0.08 (0.00-0.70) K/mcL Baso # (Auto) 0.08 (0.00-0.30) K/mcL Absolute Neutrophils 4.89 (1.80-8.00) K/mcL PT (11.9-14.5) sec INR (0.9-1.1) Sodium (133-145) mmol/L Potassium (3.3-5.1) mmol/L Chloride (96-108) mmol/L Carbon Dioxide (22-30) mmol/L Anion Gap (8.0-16.0) BUN (8-23) mg/dL Creatinine (0.6-1.1) mg/dL GFR Calculation Glucose (70-105) mg/dL Calcium (8.6-10.4) mg/dL POC Troponin I (0.02-0.08) ED POC Tests ED POC Tests: FE - SARS Antigen Negative Discharge Plan Patient/Caregiver Discharge Instructions Pt seen by IN SERVICE EDUCATOR/PA only: No Clinical Impression: Near syncope, Ankle fracture, left Patient Disposition: Xfer As Inpt ([facility]) Condition: Fair Follow up with: Nehal Sepulveda PA-C [Primary Care Provider] - Prescriptions: No Action pantoprazole 40 mg tablet,delayed release (DR/EC) 40 mg PO QDAY Qty: 90 1RF loratadine [Claritin] 10 mg tablet 10 mg PO QDAY Qty: 90 1RF rosuvastatin 20 mg tablet 20 mg PO QDAY Qty: 90 3RF sucralfate [Carafate] 1 gram tablet 1 g PO BID Qty: 120 12RF losartan 50 mg tablet 50 mg PO QAM Qty: 90 3RF Calcium 600 + D(3) 600 mg calcium- 200 unit Capsule 1 cap PO DAILY 0RF omega-3 fatty acids Capsule 2,000 mg PO QDAY 0RF Label Comments: WILL HOLD FOR SURGERY propranolol 60 mg capsule,extended release 24 hr 60 mg PO QAM 0RF escitalopram oxalate 10 mg tablet 10 mg PO QAM 0RF bupropion HCl 150 mg tablet extended release 24 hr 150 mg PO QAM 0RF
--- NOTE | 2022-02-14 22:08 | Internal Med History&Physical ---
HPI History of Present Illness Patient information: Note initiated : 02/14/22 at 9:57 pm Service Date, if different from initiated Date: [as above] Patient: Liya Song a 66 y/o F admitted on for left ankle deformity, fall. Chief Complaint: [Left ankle fracture] Chief complaint: Ground-level fall History of present illness: Ms. Song is a 66 year old F with a complex past medical history significant for pelvic abscess status post sigmoid colectomy with Jose procedure and colostomy reversal complicated by chronic nausea/vomiting who presents to the hospital syncopal event resulting in a ground-level fall now with a distal left tibia/fibular fracture. She presented to the hospital for further management and evaluation. Trauma set of imaging was performed. X-ray confirmed comminunated fracture. Orthopedic surgery evaluated patient and she will be taken to the OR either tonight or tomorrow morning. Hospitalist service was asked admit the patient for comanagement. Review of Systems All systems: reviewed and no additional remarkable complaints except as stated Constitutional Constitutional: Present as per HPI EENT Eyes: Present as per HPI; Absent blurry vision Cardiovascular Cardiovascular: Present as per HPI; Absent chest pain, dyspnea, dyspnea on exertion, leg edema or palpatations Respiratory Respiratory: Present as per HPI; Absent cough, dyspnea, dyspnea on exertion, wheezing or stridor Gastrointestinal Gastrointestinal: Present as per HPI; Absent abdominal pain, diarrhea, dysphagia , hematemesis, melena, nausea or vomiting Musculoskeletal Musculoskeletal: Present as per HPI; Absent joint swelling, limited range of motion, muscle cramps, muscle weakness or myalgias Integumentary Integumentary: Present as per HPI; Absent erythema, new lesions, rash or wounds Neurological Neurological: Present as per HPI; Absent abnormal gait, behavioral changes, focal weakness, headache(s), loss of vision, numbness, sensory deficit or syncope Endocrine Endocrine: Absent change in body appearance, fatigue or heat intolerance Hematologic/Lymphatic Hematologic/Lymphatic: Present as per HPI PFSH PFSH All Active Problems (Updated 02/14/22 @ 22:07 by Jelani Marie MD) Syncope (Acute) Closed left ankle fracture (Acute) Hypersomnia (Chronic) Postprandial bloating (Acute) Osteoarthritis of right knee (Chronic) COVID-19 vaccine series declined (Acute 09/21/21) Medicare annual wellness visit, initial (Acute) S/P colostomy takedown (Acute) Recurrent abdominal pain (Acute) Colostomy status (Acute) Recurrent falls (Acute) Vulvovaginitis gely albicans (Acute) Pelvic abscess (Acute) Acute diverticulitis of intestine (Acute) COPD (chronic obstructive pulmonary disease) (Acute) Rectal bleeding (Acute) Colonic mass (Acute) GERD (gastroesophageal reflux disease) (Acute) Change in stool (Acute) Nausea & vomiting (Acute) Tremor (Acute) DJD (degenerative joint disease) (Acute) Stomach ulcer (Acute) Joint pain (Acute) High cholesterol (Acute) Hypertension (Acute) Depression (Acute) Arthritis (Acute) Acid reflux (Acute) Left knee sprain (Acute) Bronchitis with bronchospasm (Acute) Acute exacerbation of chronic obstructive airways disease (Acute) Medical History Acid reflux Acute exacerbation of chronic obstructive airways disease Arthritis Bronchitis with bronchospasm COVID-19 vaccine series declined (09/21/21) Depression DJD (degenerative joint disease) High cholesterol History of diverticulitis Hypertension Joint pain Left knee sprain Medicare annual wellness visit, initial Stomach ulcer Surgical History History of colectomy 11/11/2020-sigmoid colectomy with Jose's pouch History of colonoscopy History of colostomy reversal 03/29/2021 Family History Father Lung cancer Alzheimer disease Mother Type 2 diabetes mellitus Other Arthritis Social History marital status: occupational status: employed occupation: [employer] smoking status: Former smoker alcohol intake frequency: 0-2 drinks per day substance use type: does not use MEDS/ALLERGIES Home Medications and Allergies Home Medications Medication Instructions Recorded Confirmed Type calcium carbonate 600 mg-vitamin 1 cap PO DAILY 11/09/20 12/21/21 History D3 5 mcg (200 unit) capsule (Calcium 600 + D(3)) omega-3 fatty acids 2,000 mg PO QDAY 03/23/21 12/21/21 History loratadine 10 mg tablet (Claritin) 10 mg PO QDAY #90 tab 08/14/21 12/21/21 Rx pantoprazole 40 mg tablet,delayed 40 mg PO QDAY #90 tab 08/14/21 12/21/21 Rx release rosuvastatin 20 mg tablet 20 mg PO QDAY #90 tab 10/02/21 12/21/21 Rx bupropion HCl 150 mg 24 hr tablet, 150 mg PO QAM 11/13/21 12/21/21 History extended release escitalopram oxalate 10 mg tablet 10 mg PO QAM 11/13/21 12/21/21 History propranolol 60 mg capsule,24 60 mg PO QAM 11/13/21 12/21/21 History hr,extended release sucralfate 1 gram tablet (Carafate) 1 g PO BID #120 tab 11/20/21 12/21/21 Rx losartan 50 mg tablet 50 mg PO QAM #90 tab 01/04/22 Rx Allergies Allergy/AdvReac Type Severity Reaction Status Date / Time Penicillins Allergy Intermediate Rash Verified 12/21/21 13:40 EXAM Constitutional Vitals: Temp Pulse Resp BP Pulse Ox 98.5 F 73 21 121/68 98 02/14/22 19:11 02/14/22 20:31 02/14/22 20:31 02/14/22 20:31 02/14/22 20:31 General appearance: average body habitus Head Head exam: Present atraumatic, normal inspection and normocephalic Eye Eye exam: Present EOMI, normal appearance and PERRL; Absent conjunctival injection ENT ENT exam: Present normal exam; Absent mucous membranes dry Neck Neck exam: Present full ROM; Absent lymphadenopathy Respiratory Respiratory exam: Present normal respiratory exam and CTAB; Absent decreased breath sounds, respiratory distress or wheezes Cardiovascular Cardiovascular exam: Present normal rate and rhythm and RRR; Absent JVD GI/Abdominal GI/Abdominal exam: Present normal bowel sounds and soft; Absent diminished bowel sounds, distended, guarding, mass, rebound or tenderness Expanded Lower Extremity Exam Lower Leg exam: Present deformity, dislocation and full ROM; Absent abrasion or ecchymosis Top foot image: 1. Neurological Exam Neurological exam: Present alert, CN II-XII intact and oriented X3 Psychiatric Psychiatric exam: Present normal affect and normal mood Skin Skin exam: Present intact and warm; Absent erythema, pallor, petechiae or rash DATA Data Completed and Pending Labs: Labs from last 24 hours 05/11/22 05/11/22 05/11/22 19:24 19:23 19:11 WBC 7.2 RBC 4.10 Hgb 13.5 Hct 40.1 MCV 97.8 MCH 32.9 MCHC 33.7 RDW 14.0 Plt Count 187 MPV 9.5 Neut % (Auto) 67.8 Lymph % (Auto) 22.4 [place] % (Auto) 7.6 Eos % (Auto) 1.1 Baso % (Auto) 1.1 Lymph # (Auto) 1.62 [place] # (Auto) 0.55 Eos # (Auto) 0.08 Baso # (Auto) 0.08 Absolute Neutrophils 4.89 PT 12.8 INR 0.9 Sodium Potassium Chloride Carbon Dioxide Anion Gap BUN Creatinine GFR Calculation Glucose Calcium POC Troponin I 0 L 02/14/22 19:11 WBC RBC Hgb Hct MCV MCH MCHC RDW Plt Count MPV Neut % (Auto) Lymph % (Auto) [place] % (Auto) Eos % (Auto) Baso % (Auto) Lymph # (Auto) [place] # (Auto) Eos # (Auto) Baso # (Auto) Absolute Neutrophils PT INR Sodium 135 Potassium 3.6 Chloride 98 Carbon Dioxide 18 L Anion Gap 19.0 H BUN 18 Creatinine 1.1 GFR Calculation 52 Glucose 83 Calcium 9.6 POC Troponin I A/P Assessment and plan (1) S/P colostomy takedown: Status: Acute (2) COVID-19 vaccine series declined: Status: Acute (3) COPD (chronic obstructive pulmonary disease): Status: Acute Qualifiers: COPD type: emphysema Emphysema type: panlobular Qualified Code(s): J43.1 - Panlobular emphysema (4) GERD (gastroesophageal reflux disease): Status: Acute Qualifiers: Esophagitis presence: esophagitis presence not specified Qualified Code(s): K21.9 - Gastro-esophageal reflux disease without esophagitis (5) Recurrent falls: Status: Acute (6) Hypertension: Status: Acute Qualifiers: Hypertension type: essential hypertension Qualified Code(s): I10 - Essential (primary) hypertension (7) Depression: Status: Acute (8) Closed left ankle fracture: Status: Acute (9) Syncope: Status: Acute Narrative A/P Narrative: The prodromal symptoms leading up to her syncopal event are unclear. She may need vagal testing performed by neurology down the road. At this time, she will require immediate surgical fixation of her left ankle fracture per orthopedic surgery likely tomorrow morning. Continue pain control with narcotic analgesics. She will be n.p.o. after midnight. PT/OT evaluation postoperati deniz. Social work and case management work on disposition. Time Spent With Patient Time: Total time spent is greater than 50% in coordination of care (as documented) at patient's floor/unit and/or counseling patient: Total time spent with greater than 50% in coordination of care (as documented) at patient's floor/unit and/or counseling patient:: 50 - 70 minutes
[2022-02-14] MEDS ORDERED: HYDROmorphone 0.5 MG/0.5 ML SYRINGE IV ONE (22:21)
[2022-02-15] MEDS: 0.9 % SODIUM CHLORIDE 10 ML SYRINGE IV SCH ×4 (00:40→21:58)
[2022-02-15] MEDS ORDERED: HYDROmorphone 2 MG TABLET ONE ×2 (01:19→05:52)
[2022-02-15] MEDS ORDERED: ONDANSETRON 4 MG/2 ML VIAL ONE ×2 (01:20→16:48)
[2022-02-15] MEDS: HYDROmorphone 2 MG TABLET PO PRN ×3 (01:23→10:32)
[2022-02-15] MEDS: ONDANSETRON 4 MG/2 ML VIAL IV PRN ×3 (01:23→10:32)
[2022-02-15 02:47] LABS: Appearance,Urine Slightly Cloudy (Clear); Bilirubin,Urine Negative (Negative); Color,Urine Light yellow; Culture Indicated,Urine No; Glucose,Urine (UA) Negative (Negative); Ketones,Urine 15 mg/dL mg/dL (Negative); Leukocyte Esterase,Urine Negative /uL (Negative); Mucus,Urine MANY /hpf; Nitrate,Urine Negative (Negative); Protein,Urine >=300 mg/dL mg/dL (Negative); Specific Gravity,Urine >= 1.030 (1.000-1.035); Urine Blood Moderate ery/mcL (Negative); Urine Hyaline Cast 3 /lph (0-2); Urine RBC 1 /hpf (0-3); Urine Squamous Epithelial Cell 6 /hpf (0-4); Urine WBC 9 /hpf (0-4); Urobilinogen,Urine Normal
[2022-02-15] MEDS: morphine 4 MG/ML VIAL IV PRN ×3 (03:56→15:33)
[2022-02-15] MEDS ORDERED: morphine 4 MG/ML VIAL ONE (03:59)
[2022-02-15 06:31] LABS: Basophils # (Auto) 0.04 K/mcL (0.00-0.30); Basophils % (Auto) 0.5 % (0.0-2.0); Eosinophils # (Auto) 0.01 K/mcL (0.00-0.70); Eosinophils % (Auto) 0.1 % (0.0-7.0); Hematocrit 37.3 % (34.1-44.9); Lymphocytes # (Auto) 0.89 K/mcL (1.50-4.80); Lymphocytes % (Auto) 11.4 % (15.5-49.0); Mean Cell Volume 101.9 fL (80.0-100.0); Mean Corpuscular HGB Conc 32.2 g/dL (31.0-36.0); Mean Platelet Volume 9.9 fL (7.4-10.4); Monocytes # (Auto) 0.67 K/mcL (0.10-0.90); Monocytes % (Auto) 8.5 % (1.0-12.0); Neutrophils % (Auto) 79.5 % (38.0-78.0); Platelet Count 160 K/mcL (140-440); RBC 3.66 M/mcL (3.59-5.38); Red Cell Distribution Width 14.1 % (11.5-14.5); WBC 7.8 K/mcL (4.5-11.0)
[2022-02-15 06:47] LABS: Blood Urea Nitrogen 18 mg/dL (8-23); Calcium 9.3 mg/dL (8.6-10.4); Carbon Dioxide 20 mmol/L (22-30); Chloride 100 mmol/L (96-108); Glomerular Filtration Rate 58; Glucose 96 mg/dL (70-105)
--- NOTE | 2022-02-15 07:35 | XRay Report ---
HISTORY: Fell, left ankle injury FINDINGS: There are acute comminuted fractures in the distal shaft of the tibia and fibula. There is severe medial angulation of both bones. Lateral view shows is also posterior displacement of the distal end of the bone. The talus remains normally aligned with the tibia and fibula. The fracture of the tibia extends into the joint. There is very little displacement of the articular surface. IMPRESSION: Fractured distal tibia and fibula with severe angulation deformity Interpreted and Authenticated by: Yared Moon 02/15/22
--- NOTE | 2022-02-15 07:40 | Cat Scan Report ---
History: Follow-up closed reduction of fractured left ankle TECHNIQUE: The left lower leg was imaged without contrast in axial plane at 1.25 mm intervals. Sagittal, coronal and reformatted axial images were created. The radiation exposure was limited using dose reduction technology. FINDINGS: The lower leg is encased in a plaster cast. There is a comminuted fracture of the distal tibia. There is a transversely oriented component in the metaphyseal region and a longitudinally component of the fracture which extends into the joint. There is no step-off along the articular surface. There is also a transversely oriented fracture of the distal shaft of the fibula. The distal ends of both tibia and fibula are angulated in a medial and posterior direction. The malalignment has improved considerably compared with the prereduction film done earlier same date. There is also a very small chip fracture off the inferior border medial malleolus. The talus and calcaneus and midfoot are normal. IMPRESSION: Improved alignment of the fractured distal tibia and fibula following closed reduction Interpreted and Authenticated by: Yared Moon 02/15/22
--- NOTE | 2022-02-15 07:42 | Cat Scan Report ---
History: Fell with head injury TECHNIQUE: The brain was imaged without contrast in axial plane at 2.5 mm intervals. Sagittal and coronal reformats were created. The radiation exposure was limited using dose reduction technology. FINDINGS: There is mild atrophy, most apparent in the frontal lobes with milder involvement in the temporal parietal lobes and cerebellum. There are ill-defined zones of decreased attenuation in the centrum semiovale, most apparent in the frontal lobes. There is no cortical infarct. No hemorrhage or mass effect are present. There is no abnormal extra-axial fluid collection. The ventricles are normal in size. Bone windows show no skull fracture. IMPRESSION: Age-related degenerative changes with mild atrophy and mild white matter ischemia or degeneration. No evidence of acute head injury Interpreted and Authenticated by: Yared Moon 02/15/22
--- NOTE | 2022-02-15 07:47 | Cat Scan Report ---
History: Fell, neck injury TECHNIQUE: The neck was imaged without contrast in axial plane at 2.5 mm intervals from the skull base through the thoracic inlet. Sagittal and coronal reformats were created. The radiation exposure was limited using dose reduction technology. FINDINGS: The cervico-occipital junction is normal. Mild arthritis is present at the articulation of C1 and C2. There is no fracture or destructive bone lesion. 3 mm grade 1 spondylolisthesis is present at C4-5 due to moderate arthritis in the facets. This disc space is mildly narrowed. Severe disc space narrowing is present at C6-7 and there is moderate narrowing at C4-5. The C3-4 disc is mildly narrowed. There are medium-size anterior and posterior osteophytes at C6-7. There is spurring of the uncinate processes at C5-6 and C6-7. There is moderate stenosis of the right-sided neural foramen at C6-7. Central canal is normal in caliber. There is no paraspinal hematoma. Calcified plaques are present in the carotid bifurcations bilaterally. No hematoma or soft tissue mass are seen in the neck. IMPRESSION: No fracture degenerative disc disease and arthritis at several levels Interpreted and Authenticated by: Yared Moon 02/15/22
--- NOTE | 2022-02-15 08:37 | XRay Report ---
HISTORY: Fell, chest injury FINDINGS: The lungs are clear and normally expanded. No pneumothorax or pleural effusion are present. The heart, mediastinum and go are normal. No fracture is detected. There has been no significant change since 11/13/21. IMPRESSION: Normal chest Interpreted and Authenticated by: Yared Moon 02/15/22
--- NOTE | 2022-02-15 08:58 | Consultation ---
DATE OF CONSULTATION: 02/14/2022 DATE OF CONSULTATION: 02/14/2022 REASON FOR CONSULTATION: Left ankle fracture with deformity. CONSULTING PHYSICIAN: Veena Ordonez M.D. REQUESTING PROVIDER: Mohan Marcos MD, ER provider at [facility]. HISTORY OF PRESENT ILLNESS: The patient is a 66-year-old female who was at home when she went to stand up and got dizzy and fell to the ground, resulting in an obvious deformity about her ankle, inability to ambulate, and she was brought to the Emergency Room for further evaluation and treatment. On presentation, she only complains of left ankle pain. She reports that she has been having these dizzy spells for quite some time now since her surgery this past year and does not entirely understand the reason for the dizzy spells. However, she has to stand up and stay in the same position for quite some time prior to moving. Otherwise, she will fall. She denies any numbness and tingling in that extremity. PAST MEDICAL HISTORY: Significant for hypertension, hyperlipidemia, COPD, acid reflux, and depression. PAST SURGICAL HISTORY: She has had a colonoscopy, with which subsequently had some apparent complication and subsequently had to have exploratory laparotomy after which she had a full colostomy bag and then was reattached about a year ago now. ALLERGIES: PENICILLIN. MEDICATIONS: Bupropion. Citalopram. Claritin. Losartan. Propranolol. Statin. Carafate. SOCIAL HISTORY: She resides alone here locally. Her daughter lives here in town. She does not use tobacco products anymore--she quit about 4 years ago. REVIEW OF SYSTEMS: Other than mentioned in HPI, 10-point review of systems is negative. PHYSICAL EXAMINATION: GENERAL: She is alert, oriented, interactive and appropriate. She is not in acute distress. VITAL SIGNS: She is afebrile with temperature of 98.5, blood pressure is 121/68, heart rate in the 70s, saturating 98% on room air. EXTREMITIES: Examination of the left lower extremity reveals that the skin is intact with a splint in place. Foot is warm and well perfused and sensation is intact to the exposed digits. There is no evidence of deformity at the knee or thigh region. Her foot appears to be appropriately aligned, warm and well perfused. IMAGING: She has plain radiographs of her left ankle, which demonstrates a pilon type fracture of the tibia along with a transverse fibular fracture at the same level. CT scan was completed, which demonstrated pilon fracture with what appears to be an anterior lateral fragment and primarily a posterior fragment with a transphyseal separation. The fibular fracture was transverse and hinging on the medial cortex in a valgus aligned position. There is a bit of comminution primarily medially. She also has a cervical spine CT and head CT completed with no official results back yet. LABORATORY DATA: She has a chemistry with a creatinine of 1.1, glucose 83; CBC with a white count of 7.2, H and H of 13.5 and 40.1 with platelet count of 187. Troponin is 0. ASSESSMENT AND PLAN: A 66-year-old female who had a syncopal or dizzy spell resulting in a fall. The fall resulted in a pilon fracture of the left tibia with associated fibular fracture at the same level. She has been splinted and reduced and overall aligned as appropriate; however length unstable. She appears comfortable. I discussed the injury with her as well as treatment options and recommendations. Given the comminution and pilon variant, I recommend external fixator and fixation of this fracture in a delayed fashion. I would consider operative intervention with open reduction internal fixation of the fibula, at the time external fixator application. This would depend on the skin envelope at that time as currently she does have Pippa lines, but expect some swelling to occur over the next 1-2 days. I discussed this with the patient, discussed delayed treatment of the pilon fracture itself. They do understand the reason why this would be recommended given the increased wound complications. At this point, they do want to proceed with surgery. The plan will be for operative fixation of the left fibular fracture with external fixator application of the pilon fracture of the tibia with plate fixation. I discussed this with them and they understand the risks. She will be admitted to the hospitalist service and evaluated and likely undergo operative treatment tomorrow. RHIANNA:corwin Job ID: [id number] Doc ID: [id number] [facility]ena [facility]donez MD [facility]
[2022-02-15] MEDS: DOCUSATE SODIUM 100 MG CAPSULE PO SCH ×2 (09:10→21:57)
[2022-02-15] MEDS: ENOXAPARIN 40 MG/0.4 ML SYRINGE SQ SCH (09:10)
--- NOTE | 2022-02-15 13:08 | Internal Med Progress Note ---
SUBJECTIVE Subjective Patient information: Note initiated : 02/15/22 at 1:07 pm Service Date, if different from initiated Date: [as above] Patient: Liya Song 66 y/o F admitted on 02/14/22 for left ankle deformity, fall. Chief Complaint: [Fall, ankle fracture] Principal diagnosis: Ankle fracture Interval history: The patient is doing well and she was resting comfortably in bed. Her pain is well controlled. She is scheduled to go to the OR at 3:30 PM. Discussed the case with the RN. Constitutional Vitals: Vital Signs Temp Pulse Resp BP Pulse Ox 97.6 F 67 18 110/69 93 02/15/22 11:56 02/15/22 11:56 02/15/22 11:56 02/15/22 11:56 02/15/22 11:56 Period Temp Pulse Resp BP Sys/Manjarrez Pulse Ox Last 24 Hr 96.4 F-98.7 F 60-93 12-21 64-155/40-109 93-99 Intake and Output 02/14/22 02/15/22 02/15/22 21:59 05:59 13:59 Intake Total 2100 Output Total 1000 Balance 1100 Weight 86.183 kg 92.578 kg Intake & Output: Intake & Output 02/14/22 02/15/22 02/15/22 21:59 05:59 13:59 Intake Total 2100 Output Total 1000 Balance 1100 Weight 86.183 kg 92.578 kg Intake: IV 1600 Sodium Chloride 0.9% 1,000 ml @ 1600 Wide Open IV BOLUS ONE Rx#: [id number] Oral 500 Output: Void Amount 500 Emesis 500 Other: Urine Appearance Clear Urine Color Pale Urine Odor Normal Stool Size Small Stool Color Brown Stool Consistency Soft Formed Head Head exam: Present atraumatic and normal inspection Eye Eye exam: Present normal appearance ENT ENT exam: Present mucous membranes moist, normal exam and normal external ear exam Neck Neck exam: Present normal inspection Respiratory Respiratory exam: Present normal respiratory exam Cardiovascular Cardiovascular exam: Present normal rate and rhythm GI/Abdominal GI/Abdominal exam: Present normal bowel sounds Back Exam Back exam: Present normal inspection Neurological Exam Neurological exam: Present alert and oriented X3 Skin Skin exam: Present intact and warm OBJ DATA Labs CBC & Chem 7: 02/15/22 05:20 02/15/22 05:20 Labs: Abnormal Lab Results 02/15/22 02/15/22 02/15/22 05:20 05:20 02:06 MCV 101.9 H Neut % (Auto) 79.5 H Lymph % (Auto) 11.4 L Lymph # (Auto) 0.89 L Carbon Dioxide 20 L Anion Gap Urine Appearance Slightly cloudy A Urine Protein >=300 mg/dl A Urine Ketones 15 mg/dl A Urine Occult Blood Moderate A Urine WBC 9 H Ur Squamous Epith Cells 6 H Hyaline Casts 3 H Urine Mucus Many A POC Troponin I 02/14/22 02/14/22 19:23 19:11 MCV Neut % (Auto) Lymph % (Auto) Lymph # (Auto) Carbon Dioxide 18 L Anion Gap 19.0 H Urine Appearance Urine Protein Urine Ketones Urine Occult Blood Urine WBC Ur Squamous Epith Cells Hyaline Casts Urine Mucus POC Troponin I 0 L Meds: Medications Acetaminophen (Acetaminophen 325 Mg Tablet) 650 mg PO Q6HP PRN; Protocol PRN Reason: Per Pain Protocol/Fever > 101 Docusate Sodium (Docusate Sodium 100 Mg Capsule) 100 mg PO BID [facility] Last Admin: 02/15/22 09:10 Dose: Not Given Documented by: Enoxaparin Sodium (Enoxaparin 40 Mg/0.4 Ml Syringe) 40 mg SQ DAILY [facility] Last Admin: 02/15/22 09:10 Dose: Not Given Documented by: Hydromorphone HCl (Hydromorphone 2 Mg Tablet) 2 mg PO Q4HP PRN; Protocol PRN Reason: Per Pain Protocol Last Admin: 02/15/22 10:32 Dose: 2 mg Documented by: Morphine Sulfate (Morphine 4 Mg/Ml Vial) 4 mg IV Q4HP PRN; Protocol PRN Reason: Per Pain Protocol Last Admin: 02/15/22 07:52 Dose: 4 mg Documented by: Ondansetron HCl (Ondansetron 4 Mg/2 Ml Vial) 4 mg IV Q6HP PRN PRN Reason: Nausea And Vomiting Last Admin: 02/15/22 10:32 Dose: 4 mg Documented by: Senna (Sennosides 1 Tablet) 2 tab PO [facility] Sodium Chloride (0.9 % Sodium Chloride 10 Ml Syringe) 10 ml IV Q8 [facility] Last Admin: 02/15/22 05:46 Dose: 10 ml Documented by: A/P Assessment and plan (1) S/P colostomy takedown: Status: Acute (2) COVID-19 vaccine series declined: Status: Acute (3) COPD (chronic obstructive pulmonary disease): Status: Acute Qualifiers: COPD type: emphysema Emphysema type: panlobular Qualified Code(s): J43 .1 - Panlobular emphysema (4) GERD (gastroesophageal reflux disease): Status: Acute Qualifiers: Esophagitis presence: esophagitis presence not specified Qualified Code(s): K21.9 - Gastro-esophageal reflux disease without esophagitis (5) Recurrent falls: Status: Acute (6) Hypertension: Status: Acute Qualifiers: Hypertension type: essential hypertension Qualified Code(s): I10 - Essential (primary) hypertension (7) Depression: Status: Acute (8) Closed left ankle fracture: Status: Acute (9) Syncope: Status: Acute Narrative A/P Narrative: The prodromal symptoms leading up to her syncopal event are unclear. She may need vagal testing performed by neurology down the road. At this time, she will require immediate surgical fixation of her left ankle fracture per orthopedic surgery likely tomorrow morning. Continue pain control with narcotic analges ics. She will be n.p.o. after midnight. PT/OT evaluation postoperatively. Social work and case management work on disposition. 02/15: The patient is doing quite well. She is scheduled to go to the OR at 3:30 PM. Postoperative management per orthopedic surgery. Time Spent With Patient Time: Total time spent is greater than 50% in coordination of care (as documented) at patient's floor/unit and/or counseling patient: Total time spent with greater than 50% in coordination of care (as documented) at patient's floor/unit and/or counseling patient:: 35 - 50 minutes
[2022-02-15] MEDS ORDERED: ceFAZolin 2 GM in DEXTROSE 5% IN WATER 50 ML IV SCH ×2 (16:45→19:00)
[2022-02-15] MEDS ORDERED: GLYCOPYRROLATE 0.2 MG/ML VIAL IV ONE (16:48)
[2022-02-15] MEDS ORDERED: KETAMINE 50 MG/ML Syringe (ANEST) IV ONE (16:48)
[2022-02-15] MEDS ORDERED: MAGNESIUM SULFATE 2 GM/50 ML BAG IV ONE (16:48)
[2022-02-15] MEDS ORDERED: DEXAMETHASONE 10 MG/ML VIAL ONE (16:48)
[2022-02-15] MEDS ORDERED: ePHEDrine 50 MG/5 ML SYRINGE (ANEST) IV ONE (16:48)
[2022-02-15] MEDS ORDERED: PROPOFOL 200 MG/20 ML VIAL IV ONE (16:48)
[2022-02-15] MEDS ORDERED: LIDOCAINE HCL/PF 100 MG/5 ML SYRINGE IV ONE (16:48)
[2022-02-15] MEDS ORDERED: LIDOCAINE 1% 20 ML, BUPIVACAINE 0.5% 20 ML SQ ONE (17:11)
[2022-02-15] MEDS ORDERED: PROMETHAZINE 25 MG/ML VIAL IV PRN (18:24)
[2022-02-15] MEDS ORDERED: IPRATROPIUM/ALBUTEROL 3 ML AMPUL.NEB NEB PRN (18:24)
[2022-02-15] MEDS ORDERED: MEPERIDINE 25 MG/ML VIAL IV PRN (18:24)
[2022-02-15] MEDS ORDERED: fentaNYL 100 MCG/2 ML VIAL IV PRN (18:24)
[2022-02-15] MEDS ORDERED: ACETAMINOPHEN 1,000 MG/100 ML BAG IV ONE ×2 (18:24→19:31)
[2022-02-15] MEDS ORDERED: PROMETHAZINE 25 MG/ML VIAL IM PRN (18:24)
[2022-02-15] MEDS ORDERED: NALOXONE HCL 0.4 MG/ML VIAL IV PRN (18:24)
[2022-02-15] MEDS ORDERED: diphenhydrAMINE 50 MG/ML VIAL IV PRN (18:24)
[2022-02-15] MEDS ORDERED: MEPERIDINE 50 MG/ML VIAL IM PRN (18:24)
[2022-02-15] MEDS ORDERED: ONDANSETRON 4 MG/2 ML VIAL IV PRN (18:24)
[2022-02-15] MEDS ORDERED: LACTATED RINGERS 250 ML IV PRN (18:24)
[2022-02-15] MEDS ORDERED: LACTATED RINGERS 1,000 ML IV SCH (18:30)
[2022-02-15] MEDS ORDERED: METHOCARBAMOL 500 MG TABLET PO PRN (18:47)
--- NOTE | 2022-02-15 18:47 | Brief Operative Note ---
Brief Operative Note Date of procedure: 02/15/22 Pre-op diagnosis: left ankle pilon fracture with associated fibula fracture Post-op diagnosis: same Procedure: ORIF left fibula fracture, spanning ex-fix application of ankle Grafts/Implants: Yes Anesthesia: GETA Findings: comminuted pilon with fibula fracture Complications: none Surgeon: Veena Ordonez Cook Helper Vegetable: Bear Munoz Estimated blood loss (cc): 10 Tourniquet Time (Minutes): 95 Specimens Removed/Pathology: none sent Condition: stable Disposition: PACU
[2022-02-15] MEDS: SENNOSIDES 1 TABLET PO SCH (21:57)
[2022-02-15] MEDS: LACTATED RINGERS 1,000 ML IV SCH (21:58)
[2022-02-16] MEDS: ceFAZolin 1 GM VIAL IV SCH ×2 (00:35→08:30)
[2022-02-16] MEDS: 0.9 % SODIUM CHLORIDE 10 ML SYRINGE IV SCH ×3 (05:35→21:08)
--- NOTE | 2022-02-16 07:48 | XRay Report ---
HISTORY: FINDINGS: IMPRESSION: 1.1 minute of fluoroscopy time was used. Interpreted and Authenticated by: Yared Moon 02/16/22
--- NOTE | 2022-02-16 07:49 | Orthopedic Progress Note ---
SUBJECTIVE Subjective Patient information: Note initiated : 02/16/22 at 7:43 am Service Date, if different from initiated Date: [] Patient: Liya Song 66 y/o F admitted on 02/14/22 for left ankle deformity, fall. Chief Complaint: [] Principal diagnosis: Ankle fracture Interval history: POD 1 s/p left lateral malleolus ORIF and left tibia external fixator application. Patient is resting and doing well this morning. Pain is well controlled. Says she will not be able to return home due to NWB status and wants to plan transfer to a SNF. She denies any CP, PETERS, nausea, vomitting, numbness/tingling, or any other acute symptoms. Constitutional Vitals: Vital Signs Temp Pulse Resp BP Pulse Ox 98.9 F 91 H 18 149/75 98 02/16/22 06:31 02/16/22 06:31 02/16/22 06:31 02/16/22 06:31 02/16/22 06:31 Period Temp Pulse Resp BP Sys/Manjarrez Pulse Ox Last 24 Hr 96.4 F-98.9 F 67-93 10-18 91-155/53-93 91-100 Intake and Output 02/15/22 02/16/22 02/16/22 21:59 05:59 13:59 Intake Total 1750 800 Output Total 1 250 Balance 1749 550 Intake & Output: Intake & Output 02/15/22 02/16/22 02/16/22 21:59 05:59 13:59 Intake Total 1750 800 Output Total 1 250 Balance 1749 550 Intake: IV 150 Ancef 2 gm In Dextrose 5% in 50 Water 50 ml @ 100 mls/hr IV PREOP [facility] Rx#:[id number] Oral 800 IV - Manual Only 1600 Output: Void Amount 250 # of times incontinent of urine 1 Other: Urine Appearance Clear Clear Urine Color Pale Bright Yellow Urine Odor Normal Strong # Voids 1 General appearance: no acute distress Exam: Exam of the LLE reveals external fixator in place with all dressings dry and in place. moderate swelling, mild ecchymosis, NVI in the entire LLE, no calf tenderness OBJ DATA Labs CBC & Chem 7: 02/15/22 05:20 02/15/22 05:20 Labs: Abnormal Lab Results 02/15/22 02/15/22 02/15/22 05:20 05:20 02:06 MCV 101.9 H Neut % (Auto) 79.5 H Lymph % (Auto) 11.4 L Lymph # (Auto) 0.89 L Carbon Dioxide 20 L Anion Gap Urine Appearance Slightly cloudy A Urine Protein >=300 mg/dl A Urine Ketones 15 mg/dl A Urine Occult Blood Moderate A Urine WBC 9 H Ur Squamous Epith Cells 6 H Hyaline Casts 3 H Urine Mucus Many A POC Troponin I 02/14/22 02/14/22 19:23 19:11 MCV Neut % (Auto) Lymph % (Auto) Lymph # (Auto) Carbon Dioxide 18 L Anion Gap 19.0 H Urine Appearance Urine Protein Urine Ketones Urine Occult Blood Urine WBC Ur Squamous Epith Cells Hyaline Casts Urine Mucus POC Troponin I 0 L Meds: Medications Acetaminophen (Acetaminophen 325 Mg Tablet) 650 mg PO Q6HP PRN; Protocol PRN Reason: Per Pain Protocol/Fever > 101 Hydrocodone Bitart/Acetaminophen (Hydrocodone/Apap 5/325mg Tablet) 0 tab PO Q4HP PRN; Protocol PRN Reason: Per Pain Protocol Cefazolin Sodium (Cefazolin 1 Gm Vial) 2 gm IV Q8H [facility] Stop: 02/16/22 09:01 Last Admin: 02/16/22 00:35 Dose: 2 gm Documented by: Docusate Sodium (Docusate Sodium 100 Mg Capsule) 100 mg PO BID [facility] Last Admin: 02/15/22 21:57 Dose: 100 mg Documented by: Enoxaparin Sodium (Enoxaparin 40 Mg/0.4 Ml Syringe) 40 mg SQ DAILY [facility] Last Admin: 02/15/22 09:10 Dose: Not Given Documented by: Hydromorphone HCl (Hydromorphone 2 Mg Tablet) 2 mg PO Q4HP PRN; Protocol PRN Reason: Per Pain Protocol Last Admin: 02/15/22 10:32 Dose: 2 mg Documented by: Lactated Ringer's (Lactated Ringers) 1,000 mls @ 75 mls/hr IV .[id number] [facility] Last Admin: 02/15/22 21:58 Dose: 75 mls/hr Documented by: Methocarbamol (Methocarbamol 500 Mg Tablet) 500 mg PO TIDP PRN PRN Reason: Muscle Spasm Morphine Sulfate (Morphine 4 Mg/Ml Vial) 4 mg IV Q4HP PRN; Protocol PRN Reason: Per Pain Protocol Last Admin: 02/15/22 15:33 Dose: 4 mg Documented by: Ondansetron HCl (Ondansetron 4 Mg/2 Ml Vial) 4 mg IV Q6HP PRN PRN Reason: Nausea And Vomiting Last Admin: 02/15/22 10:32 Dose: 4 mg Documented by: Senna (Sennosides 1 Tablet) 2 tab PO HS [facility] Last Admin: 02/15/22 21:57 Dose: 2 tab Documented by: Sodium Chloride (0.9 % Sodium Chloride 10 Ml Syringe) 10 ml IV Q8 [facility] Last Admin: 02/16/22 05:35 Dose: 10 ml Documented by: A/P Assessment and plan (1) Ankle fracture, left: Status: Acute Plan POD 1 s/p left ankle ORIF with Ex fix of tibia 1. Case management for SNF planning 2. Non-weightbearing on LLE 3. Dressing change on POD 2 for lateral malleolus incision, hydrogen peroxide on cotton tip applicator to the base of ex fix pins once a day Time Spent With Patient Time: Total time spent is greater than 50% in coordination of care (as documented) at patient's floor/unit and/or counseling patient:
--- NOTE | 2022-02-16 07:50 | XRay Report ---
HISTORY: Postop open reduction internal fixation of left ankle fracture FINDINGS: There is good alignment following open reduction internal fixation. There is a metal plate secured to the lateral border of the fibula using multiple screws. The angulation deformity seen preoperatively has been corrected. There is a comminuted fracture of the distal tibia with a transverse component in the metaphyseal region and a longitudinal component at the base of the medial malleolus. These fractures are also held in good alignment and there are two screws oriented horizontally in the distal tibia. Ankle joint space is slightly widened along the medial side. IMPRESSION: Good alignment following repair of the fractured distal tibia and fibula Interpreted and Authenticated by: Yared Moon 02/16/22
[2022-02-16] MEDS: DOCUSATE SODIUM 100 MG CAPSULE PO SCH ×2 (08:29→21:06)
[2022-02-16] MEDS: ENOXAPARIN 40 MG/0.4 ML SYRINGE SQ SCH (08:30)
--- NOTE | 2022-02-16 08:44 | Operative Note ---
DATE OF OPERATION: 02/15/2022 DATE OF PROCEDURE: 02/15/2022 PREOPERATIVE DIAGNOSIS: Left ankle pilon fracture with associated fibular fracture. POSTOPERATIVE DIAGNOSIS: Left ankle pilon fracture with associated fibular fracture. PROCEDURE PERFORMED: 1. Open reduction and internal fixation of left fibular fracture. 2. Spanning ankle external fixator application. SURGEON: Veena Ordonez M.D. STUDENT SERVICES COORDINATOR: Bear Munoz PA-C. This providers expertise and technical skill were required throughout the case. The PA assisted with preoperative coordination, intraoperative retraction, wound closure, and dressing and splint application, as well as postoperative documentation and care coordination. ANESTHESIA: General. INTRAVENOUS FLUIDS: 1500 mL of lactated Ringer's. ESTIMATED BLOOD LOSS: Minimal. TOURNIQUET TIME: 75 minutes at 250 mmHg. IMPLANTS: Arthrex 8-hole 1/3 tubular locking plate and two 4.0 partially threaded cannulated screws from Arthrex short threads. INTRAOPERATIVE COMPLICATIONS: None apparent. PATHOLOGY/LAB: None. ANTIBIOTICS: 2 grams Ancef. INDICATIONS FOR PROCEDURE: The patient is a 66-year-old female who had a ground level fall and syncopal episode, resulting in a pilon fracture of the left lower extremity as well as a fibula fracture. She was splinted and reduced in the ER and subsequently admitted to the hospital overnight. I discussed treatment options with her to include operative and nonoperative fixation. I discussed the soft tissue will dictate typical treatment. They do tend to have a fair amount of swelling as well as a fracture blister formation; however, typically can address the fibular fracture, initially to help restore alignment and subsequently place an external fixator to allow soft tissue envelope to improve and subsequently fixed the pilon itself. She understands and wished to proceed in that fashion. DESCRIPTION OF PROCEDURE: Patient was met in the preoperative holding area where site was verified and marked with the patient's input. She was then put back to the operating room where she underwent successful general anesthesia. Her left lower extremity had a splint removed. The leg was cleaned with chlorhexidine wipes. She does have fracture blisters along the anteromedial aspect of her leg that go up to the proximal third. There was none laterally. Her soft tissue envelope as far as swelling goes is not overly terrible with some Pippa lines present. At that point, the leg had a well-padded tourniquet placed on the proximal thigh and was then prepped and draped in the usual sterile fashion with ChloraPrep. Surgical timeout was performed to verify patient's identity, correct procedure being performed, and correct extremity being operated on. Everybody was in agreement. We initially addressed the fibular fracture as I can get this out to length and made a posterolateral incision in order to give me the largest tissue bridge for what I predicted to be an anterior medial plate given the CT scans with comminution anteromedially. Skin was sharply incised. Blunt dissection was taken down to the peroneal fascia. Peroneal fascia was incised with a clean 15 blade. Through this interval, the posterior border of the fibula was identified and sharply elevated to expose the fracture. Fracture was easily reduced with a wjiwj-ui-knoeh clamp and subsequently we placed a posterolateral plate, bent the top of it in order to kind of wrap around the fibula proximally a bit more. I held this in a secure fashion with BB tacks and subsequently placed a 4-0 cancellous screw distally and an additional 3.5 cortical screw proximally. Her bone was relatively soft and I placed two locking screws distally after compressing the plate to the bone and placed two additional locking screws proximally for three screws fixation proximally and distally. This overall held the fracture in stable alignment. Radiographs were obtained demonstrating good overall anatomic reapproximation. At this point, I elected to proceed with external fixator application of the tibia and placed two Schanz pins in the tibia proximally and 1 transcalcaneal Schanz pin with threads in the middle. This was placed from medial to lateral in order to protect the neurovascular structures. We placed two bars and a Delta frame construct, pulled the leg out to length as well as correcting the varus valgus with the fibula, did some of this already. The medial malleolar comminution did reduce and the joint line looked almost anatomic on that medial shoulder, which was disrupted initially on the CT scan; also on the lateral that step between the anterior and posterior fragments, which appeared to be near anatomic. Given that this was overall good alignment, I elected to proceed with placing 2 cannulated partially threaded screws from anterior to posterior. I placed a [id number]-dx-kvhaa clamp through our incision laterally. Made a small incision anteriorly and laterally at the level joint, bluntly dissected down to the distal metaphysis and put the vijwl-wa-okpex clamp here to further reduce the fracture. I knew from the CT scan, this was more obliquely oriented from anterolateral and posterolaterally with the anterior fragment being the thickest laterally and it aligned anatomically laterally and the gap was medially. With compression, I placed two cannulated 4-0 partially threaded screws which are short threads under fluoroscopy guidance. This appeared to be anatomically reduced. We did this on multiple radiographs on oblique views and indeed it did appear to be congruent. At that point, we tightened our ex-fix construct to bring everything out to length and corrected our varus valgus alignment. I was happy with the overall construct at this time. The wound was copiously irrigated with IrriSept as well as normal irrigation. I placed vancomycin powder deep in the wound. I did close the periosteum over top of the plate as well as the peroneal fascia in interrupted fashion. The subcutaneous tissue was closed in layered fashion with 3-0 Vicryl, skin closed with 3-0 nylon in running fashion. The anterior small stab incision was closed with 3-0 nylon as well. The pin sites were all cleaned. We placed Xeroform along with fluffs and then the incision itself was covered with Xeroform and fluffs as well placed. We placed Kerlix loosely and an Jonathon wrap. I did place a kickstand on the ex-fix construct as well. The patient awoke from anesthesia and was transferred to PACU in stable condition. POSTOPERATIVE PLAN: The patient will be admitted back to the floor and likely we will work on placement as she lives alone, and we will plan for definitive fixation in another -10 once the fracture blisteris resolve. RHIANNA:corwin Job ID: [id number] Doc ID: [id number] Veena Ordonez MD [facility]
[2022-02-16] MEDS ORDERED: ENOXAPARIN 40 MG/0.4 ML SYRINGE SQ SCH (09:00)
[2022-02-16] MEDS: HYDROcodone/APAP 5/325MG TABLET PO PRN ×2 (09:05→13:02)
[2022-02-16] MEDS: LACTATED RINGERS 1,000 ML IV SCH ×2 (10:31→21:47)
--- NOTE | 2022-02-16 11:44 | EKG ---
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 Measurements Intervals [place] Rate: 72 P: 46 [place]: 160 QRS: -5 QRSD: 112 T: -1 QT: 438 QTc: 480 Interpretive Statements Sinus rhythm Electronically Signed On 02-16-2022 11:44:34 PDT by Wes Moon M.D. /[email or web address]/[email or web address]/[id number]
--- NOTE | 2022-02-16 12:18 | Internal Med Progress Note ---
SUBJECTIVE Subjective Patient information: Note initiated : 02/16/22 at 12:15 pm Service Date, if different from initiated Date: [as above] Patient: Liya Song 66 y/o F admitted on 02/14/22 for left ankle deformity, fall. Chief Complaint: [Fall] Principal diagnosis: Ankle fracture Interval history: The patient has no active complaints or concerns. Discussed the case with the RN. Constitutional Vitals: Vital Signs Temp Pulse Resp BP Pulse Ox 97.8 F 98 H 16 111/61 95 02/16/22 11:21 02/16/22 11:21 02/16/22 11:21 02/16/22 11:21 02/16/22 11:21 Period Temp Pulse Resp BP Sys/Manjarrez Pulse Ox Last 24 Hr 97.1 F-98.9 F 72-98 10-18 91-152/53-93 91-100 Intake and Output 02/15/22 02/16/22 02/16/22 21:59 05:59 13:59 Intake Total 1750 800 941 Output Total 1 250 500 Balance 1749 550 441 Weight 92.578 kg Patient Weight 02/17/22 05:59 Weight 92.578 kg Intake & Output: Intake & Output 02/15/22 02/16/22 02/16/22 21:59 05:59 13:59 Intake Total 1750 800 941 Output Total 1 250 500 Balance 1749 550 441 Weight 92.578 kg Intake: IV 150 941 Lactated Ringers 1,000 ml @ 75 941 mls/hr IV .[id number] LANCE Rx#: [id number] Ancef 2 gm In Dextrose 5% in 50 Water 50 ml @ 100 mls/hr IV PREOP LANCE Rx#:[id number] Oral 800 IV - Manual Only 1600 Output: Void Amount 250 500 # of times incontinent of urine 1 Other: Urine Appearance Clear Clear Clear Urine Color Pale Bright Yellow Straw Urine Odor Normal Strong # Voids 1 Head Head exam: Present atraumatic and normal inspection Eye Eye exam: Present normal appearance ENT ENT exam: Present mucous membranes moist, normal exam and normal external ear exam Neck Neck exam: Present normal inspection Respiratory Respiratory exam: Present normal respiratory exam Cardiovascular Cardiovascular exam: Present normal rate and rhythm GI/Abdominal GI/Abdominal exam: Present normal bowel sounds Back Exam Back exam: Present normal inspection Neurological Exam Neurological exam: Present alert and oriented X3 Skin Skin exam: Present intact and warm OBJ DATA Labs CBC & Chem 7: 02/15/22 05:20 02/15/22 05:20 Labs: Abnormal Lab Results 02/15/22 02/15/22 02/15/22 05:20 05:20 02:06 MCV 101.9 H Neut % (Auto) 79.5 H Lymph % (Auto) 11.4 L Lymph # (Auto) 0.89 L Carbon Dioxide 20 L Anion Gap Urine Appearance Slightly cloudy A Urine Protein >=300 mg/dl A Urine Ketones 15 mg/dl A Urine Occult Blood Moderate A Urine WBC 9 H Ur Squamous Epith Cells 6 H Hyaline Casts 3 H Urine Mucus Many A POC Troponin I 02/14/22 02/14/22 19:23 19:11 MCV Neut % (Auto) Lymph % (Auto) Lymph # (Auto) Carbon Dioxide 18 L Anion Gap 19.0 H Urine Appearance Urine Protein Urine Ketones Urine Occult Blood Urine WBC Ur Squamous Epith Cells Hyaline Casts Urine Mucus POC Troponin I 0 L Meds: Medications Acetaminophen (Acetaminophen 325 Mg Tablet) 650 mg PO Q6HP PRN; Protocol PRN Reason: Per Pain Protocol/Fever > 101 Hydrocodone Bitart/Acetaminophen (Hydrocodone/Apap 5/325mg Tablet) 0 tab PO Q4HP PRN; Protocol PRN Reason: Per Pain Protocol Last Admin: 02/16/22 09:05 Dose: 2 tab Documented by: Docusate Sodium (Docusate Sodium 100 Mg Capsule) 100 mg PO BID [facility] [place] Last Admin: 02/16/22 08:29 Dose: 100 mg Documented by: Enoxaparin Sodium (Enoxaparin 40 Mg/0.4 Ml Syringe) 40 mg SQ DAILY [facility] Last Admin: 02/16/22 08:30 Dose: 40 mg Documented by: Hydromorphone HCl (Hydromorphone 2 Mg Tablet) 2 mg PO Q4HP PRN; Protocol PRN Reason: Per Pain Protocol Last Admin: 02/15/22 10:32 Dose: 2 mg Documented by: Lactated Ringer's (Lactated Ringers) 1,000 mls @ 75 mls/hr IV .[id number] [facility] Last Admin: 02/16/22 10:31 Dose: 75 mls/hr Documented by: Methocarbamol (Methocarbamol 500 Mg Tablet) 500 mg PO TIDP PRN PRN Reason: Muscle Spasm Morphine Sulfate (Morphine 4 Mg/Ml Vial) 4 mg IV Q4HP PRN; Protocol PRN Reason: Per Pain Protocol Last Admin: 02/15/22 15:33 Dose: 4 mg Documented by: Ondansetron HCl (Ondansetron 4 Mg/2 Ml Vial) 4 mg IV Q6HP PRN PRN Reason: Nausea And Vomiting Last Admin: 02/15/22 10:32 Dose: 4 mg Documented by: Senna (Sennosides 1 Tablet) 2 tab PO HS [facility] [place] Last Admin: 02/15/22 21:57 Dose: 2 tab Documented by: Sodium Chloride (0.9 % Sodium Chloride 10 Ml Syringe) 10 ml IV Q8 [facility] Last Admin: 02/16/22 05:35 Dose: 10 ml Documented by: A/P Assessment and plan (1) S/P colostomy takedown: Status: Acute (2) COVID-19 vaccine series declined: Status: Acute (3) COPD (chronic obstructive pulmonary disease): Status: Acute Qualifiers: COPD type: emphysema Emphysema type: panlobular Qualified Code(s): J43.1 - Panlobular emphysema (4) GERD (gastroesophageal reflux disease): Status: Acute Qualifiers: Esophagitis presence: esophagitis presence not specified Qualified Code(s): K21.9 - Gastro-esophageal reflux disease without esophagitis (5) Recurrent falls: Status: Acute (6) Hypertension: Status: Acute Qualifiers: Hypertension type: essential hypertension Qualified Code(s): I10 - Essential (primary) hypertension (7) Depression: Status: Acute (8) Closed left ankle fracture: Status: Acute (9) Syncope: Status: Acute Narrative A/P Narrative: The prodromal symptoms leading up to her syncopal event are unclear. She may need vagal testing performed by neurology down the road. At this time, she will require immediate surgical fixation of her left ankle fracture per orthopedic surgery likely tomorrow morning. Continue pain control with narcotic analgesics. She will be n.p.o. after midnight. PT/OT evaluation postoperatively. Social work and case management work on disposition. 02/15: The patient is doing quite well. She is scheduled to go to the OR at 3:30 PM. Postoperative management per orthopedic surgery. 02/16: The patient is doing quite well. She has no active complaints or concerns. She will need to go to a detention facility for rehabilitation. Time Spent With Patient Time: Total time spent is greater than 50% in coordination of care (as documented) at patient's floor/unit and/or counseling patient: Total time spent with greater than 50% in coordination of care (as documented) at patient's floor/unit and/or counseling patient:: 25 - 35 minutes
[2022-02-16] MEDS: SENNOSIDES 1 TABLET PO SCH (21:06)
[2022-02-16] MEDS ORDERED: POLYETHYLENE GLYCOL 3350 17 GM PACKET PO PRN (22:30)
[2022-02-17] MEDS: ACETAMINOPHEN 325 MG TABLET PO PRN ×2 (04:25→10:02)
[2022-02-17] MEDS: 0.9 % SODIUM CHLORIDE 10 ML SYRINGE IV SCH ×3 (04:26→20:50)
[2022-02-17] MEDS: SUCRALFATE 1 GM TABLET PO SCH ×2 (08:48→16:36)
[2022-02-17] MEDS: PANTOPRAZOLE 40 MG TABLET PO SCH (08:48)
[2022-02-17] MEDS ORDERED: LORATADINE 10 MG TABLET PO SCH (09:00)
[2022-02-17] MEDS: PROPRANOLOL 60 MG CAP.XL.24H PO SCH (10:01)
[2022-02-17] MEDS: buPROPion 150 MG TAB.XL.24H PO SCH (10:01)
[2022-02-17] MEDS: DOCUSATE SODIUM 100 MG CAPSULE PO SCH ×2 (10:02→20:50)
[2022-02-17] MEDS: LORATADINE 10 MG TABLET PO SCH (10:02)
[2022-02-17] MEDS: LOSARTAN 50 MG TABLET PO SCH (10:02)
[2022-02-17] MEDS: ESCITALOPRAM 10 MG TABLET PO SCH (10:02)
[2022-02-17] MEDS: ENOXAPARIN 40 MG/0.4 ML SYRINGE SQ SCH (10:04)
--- NOTE | 2022-02-17 12:20 | Internal Med Progress Note ---
SUBJECTIVE Subjective Patient information: Note initiated : 02/17/22 at 12:17 pm Service Date, if different from initiated Date: [] Patient: Liya Song 66 y/o F admitted on 02/14/22 for left ankle deformity, fall. Chief Complaint: [Fall] Principal diagnosis: Ankle fracture Interval history: Discussed the case with orthopedic attending yesterday evening. We discussed disposition.The patient was resting comfortably in her chair. She had no active complaints. Her home medications were restarted last night. Constitutional Vitals: Vital Signs Temp Pulse Resp BP Pulse Ox 98.2 F 82 20 115/65 95 02/17/22 06:46 02/17/22 04:00 02/17/22 06:46 02/17/22 06:46 02/17/22 06:46 Period Temp Pulse Resp BP Sys/Manjarrez Pulse Ox Last 24 Hr 97.4 F-98.2 F 82-86 16-20 115-140/63-76 95-97 Intake and Output 02/16/22 02/17/22 02/17/22 21:59 05:59 13:59 Intake Total 1240 200 Output Total 202 Balance 1240 -2 Intake & Output: Intake & Output 02/16/22 02/17/22 02/17/22 21:59 05:59 13:59 Intake Total 1240 200 Output Total 202 Balance 1240 -2 Intake: IV 1000 Lactated Ringers 1,000 ml @ 75 1000 mls/hr IV .[id number] LANCE Rx#: [id number] Oral 240 200 Output: Void Amount 200 # of times incontinent of urine 2 Other: Urine Appearance Clear Clear Urine Color Pale Pale Head Head exam: Present atraumatic and normal inspection Eye Eye exam: Present normal appearance ENT ENT exam: Present mucous membranes moist, normal exam and normal external ear exam Neck Neck exam: Present normal inspection Respiratory Respiratory exam: Present normal respiratory exam Cardiovascular Cardiovascular exam: Present normal rate and rhythm GI/Abdominal GI/Abdominal exam: Present normal bowel sounds Back Exam Back exam: Present normal inspection Neurological Exam Neurological exam: Present alert and oriented X3 Skin Skin exam: Present intact and warm OBJ DATA Labs CBC & Chem 7: 02/15/22 05:20 02/15/22 05:20 Labs: Abnormal Lab Results 02/15/22 02/15/22 02/15/22 05:20 05:20 02:06 MCV 101.9 H Neut % (Auto) 79.5 H Lymph % (Auto) 11.4 L Lymph # (Auto) 0.89 L Carbon Dioxide 20 L Anion Gap Urine Appearance Slightly cloudy A Urine Protein >=300 mg/dl A Urine Ketones 15 mg/dl A Urine Occult Blood Moderate A Urine WBC 9 H Ur Squamous Epith Cells 6 H Hyaline Casts 3 H Urine Mucus Many A POC Troponin I 02/14/22 02/14/22 19:23 19:11 MCV Neut % (Auto) Lymph % (Auto) Lymph # (Auto) Carbon Dioxide 18 L Anion Gap 19.0 H Urine Appearance Urine Protein Urine Ketones Urine Occult Blood Urine WBC Ur Squamous Epith Cells Hyaline Casts Urine Mucus POC Troponin I 0 L Meds: Medications Acetaminophen (Acetaminophen 325 Mg Tablet) 650 mg PO Q6HP PRN; Protocol PRN Reason: Per Pain Protocol/Fever > 101 Last Admin: 02/17/22 10:02 Dose: 650 mg Documented by: Hydrocodone Bitart/Acetaminophen (Hydrocodone/Apap 5/325mg Tablet) 0 tab PO Q4HP PRN; Protocol PRN Reason: Per Pain Protocol Last Admin: 02/16/22 13:02 Dose: 2 tab Documented by: Atorvastatin Calcium (Atorvastatin 40 Mg Tablet) 40 mg PO HS [facility] Bupropion HCl (Bupropion 150 Mg Tab.Xl.24h) 150 mg PO DAILY [facility] Last Admin: 02/17/22 10:01 Dose: 150 mg Documented by: Docusate Sodium (Docusate Sodium 100 Mg Capsule) 100 mg PO BID [facility] Last Admin: 02/17/22 10:02 Dose: 100 mg Documented by: Enoxaparin Sodium (Enoxaparin 40 Mg/0.4 Ml Syringe) 40 mg SQ DAILY [facility] Last Admin: 02/17/22 10:04 Dose: 40 mg Documented by: Escitalopram Oxalate (Escitalopram 10 Mg Tablet) 10 mg PO QAM [facility] Last Admin: 02/17/22 10:02 Dose: 10 mg Documented by: Hydromorphone HCl (Hydromorphone 2 Mg Tablet) 2 mg PO Q4HP PRN; Protocol PRN Reason: Per Pain Protocol Last Admin: 02/15/22 10:32 Dose: 2 mg Documented by: Loratadine (Loratadine 10 Mg Tablet) 10 mg PO DAILY [facility] Last Admin: 02/17/22 10:02 Dose: 10 mg Documented by: Losartan Potassium (Losartan 50 Mg Tablet) 50 mg PO [facility] Last Admin: 02/17/22 10:02 Dose: 50 mg Documented by: Methocarbamol (Methocarbamol 500 Mg Tablet) 500 mg PO TIDP PRN PRN Reason: Muscle Spasm Morphine Sulfate (Morphine 4 Mg/Ml Vial) 4 mg IV Q4HP PRN; Protocol PRN Reason: Per Pain Protocol Last Admin: 02/15/22 15:33 Dose: 4 mg Documented by: Ondansetron HCl (Ondansetron 4 Mg/2 Ml Vial) 4 mg IV Q6HP PRN PRN Reason: Nausea And Vomiting Last Admin: 02/15/22 10:32 Dose: 4 mg Documented by: Pantoprazole Sodium (Pantoprazole 40 Mg Tablet) 40 mg PO [facility] Last Admin: 02/17/22 08:48 Dose: 40 mg Documented by: Polyethylene Glycol (Polyethylene Glycol 3350 17 Gm Packet) 17 gm PO DAILYP PRN PRN Reason: Constipation Propranolol HCl (Propranolol 60 Mg Cap.Xl.24h) 60 mg PO [facility] Last Admin: 02/17/22 10:01 Dose: 60 mg Documented by: Senna (Sennosides 1 Tablet) 2 tab PO HS [facility] Last Admin: 02/16/22 21:06 Dose: 2 tab Documented by: Sodium Chloride (0.9 % Sodium Chloride 10 Ml Syringe) 10 ml IV Q8 [facility] Last Admin: 02/17/22 04:26 Dose: 10 ml Documented by: Sucralfate (Sucralfate 1 Gm Tablet) 1 gm PO BIDAC [facility] Last Admin: 02/17/22 08:48 Dose: 1 gm Documented by: A/P Assessment and plan (1) S/P colostomy takedown: Status: Acute (2) COVID-19 vaccine series declined: Status: Acute (3) COPD (chronic obstructive pulmonary disease): Status: Acute Qualifiers: COPD type: emphysema Emphysema type: panlobular Qualified Code(s): J43.1 - Panlobular emphysema (4) GERD (gastroesophageal reflux disease): Status: Acute Qualifiers: Esophagitis presence: esophagitis presence not specified Qualified Code(s): K21.9 - Gastro-esophageal reflux disease without esophagitis (5) Recurrent falls: Status: Acute (6) Hypertension: Status: Acute Qualifiers: Hypertension type: essential hypertension Qualified Code(s): I10 - Essential (primary) hypertension (7) Depression: Status: Acute (8) Closed left ankle fracture: Status: Acute (9) Syncope: Status: Acute Narrative A/P Narrative: The prodromal symptoms leading up to her syncopal event are unclear. She may need vagal testing performed by neurology down the road. At this time, she will require immediate surgical fixation of her left ankle fracture per orthopedic surgery likely tomorrow morning. Continue pain control with narcotic analgesics. She will be n.p.o. after midnight. PT/OT evaluation postoperatively. Social work and case management work on disposition. 02/15: The patient is doing quite well. She is scheduled to go to the OR at 3:30 PM. Postoperative management per orthopedic surgery. 02/16: The patient is doing quite well. She has no active complaints or concerns. She will need to go to a correction facility for rehabilitation. 02/17: The patient underwent open reduction and internal fixation of her left fibular fracture. Spanning ankle external fixator applicator was placed. The postoperative plan will be definitive fixation in 7 to 10 days once the fracture blisterosis resolves. Time Spent With Patient Time: Total time spent is greater than 50% in coordination of care (as documented) at patient's floor/unit and/or counseling patient: Total time spent with greater than 50% in coordination of care (as documented) at patient's floor/unit and/or counseling patient:: 25 - 35 minutes
[2022-02-17] MEDS: ATORVASTATIN 40 MG TABLET PO SCH (20:50)
[2022-02-17] MEDS: SENNOSIDES 1 TABLET PO SCH (20:50)
[2022-02-18] MEDS: 0.9 % SODIUM CHLORIDE 10 ML SYRINGE IV SCH ×3 (05:34→22:01)
[2022-02-18] MEDS: SUCRALFATE 1 GM TABLET PO SCH ×2 (07:31→16:23)
[2022-02-18] MEDS: PANTOPRAZOLE 40 MG TABLET PO SCH (07:31)
[2022-02-18] MEDS: buPROPion 150 MG TAB.XL.24H PO SCH (09:02)
[2022-02-18] MEDS: DOCUSATE SODIUM 100 MG CAPSULE PO SCH ×3 (09:02→22:00)
[2022-02-18] MEDS: LOSARTAN 50 MG TABLET PO SCH (09:02)
[2022-02-18] MEDS: LORATADINE 10 MG TABLET PO SCH (09:02)
[2022-02-18] MEDS: PROPRANOLOL 60 MG CAP.XL.24H PO SCH (09:02)
[2022-02-18] MEDS: ESCITALOPRAM 10 MG TABLET PO SCH (09:02)
[2022-02-18] MEDS: ENOXAPARIN 40 MG/0.4 ML SYRINGE SQ SCH (09:03)
[2022-02-18] MEDS: ACETAMINOPHEN 325 MG TABLET PO PRN (09:08)
[2022-02-18] MEDS ORDERED: MAGNESIUM HYDROXIDE 30 ML ORAL.SUSP PO PRN (11:34)
[2022-02-18] MEDS ORDERED: BISACODYL 10 MG SUPP.RECT PR PRN (11:34)
[2022-02-18] MEDS ORDERED: FLEETS ADULT ENEMA PR PRN (11:34)
--- NOTE | 2022-02-18 11:38 | Internal Med Progress Note ---
SUBJECTIVE Subjective Patient information: Note initiated : 02/18/22 at 11:35 am Service Date, if different from initiated Date: [as above] Patient: Liya Song 66 y/o F admitted on 02/14/22 for left ankle deformity, fall. Chief Complaint: [LOC] Principal diagnosis: Ankle fracture Interval history: The patient is doing well overall. She was sitting in her chair with a fixator device in place. She states that she has not had a bowel movement in the setting of narcotic analgesics. We discussed disposition. Constitutional Vitals: Vital Signs Temp Pulse Resp BP Pulse Ox 99.1 F H 75 20 114/63 96 02/18/22 07:28 02/18/22 05:20 02/18/22 07:28 02/18/22 07:28 02/18/22 07:28 Period Temp Pulse Resp BP Sys/Manjarrez Pulse Ox Last 24 Hr 97.3 F-99.1 F 75-80 16-20 99-144/61-87 96-98 Intake and Output 02/17/22 02/18/22 02/18/22 21:59 05:59 13:59 Intake Total 625 200 Output Total 500 300 Balance 125 -100 Intake & Output: Intake & Output 02/17/22 02/18/22 02/18/22 21:59 05:59 13:59 Intake Total 625 200 Output Total 500 300 Balance 125 -100 Intake: Oral 625 200 Output: Void Amount 500 300 Other: Urine Appearance Clear Clear Urine Color Pale Pale # Bowel Movements 0 Head Head exam: Present atraumatic and normal inspection Eye Eye exam: Present normal appearance ENT ENT exam: Present mucous membranes moist, normal exam and normal external ear exam Neck Neck exam: Present normal inspection Respiratory Respiratory exam: Present normal respiratory exam Cardiovascular Cardiovascular exam: Present normal rate and rhythm GI/Abdominal GI/Abdominal exam: Present normal bowel sounds Back Exam Back exam: Present normal inspection Neurological Exam Neurological exam: Present alert and oriented X3 Skin Skin exam: Present intact and warm OBJ DATA Labs CBC & Chem 7: 02/15/22 05:20 02/15/22 05:20 Meds: Medications Acetaminophen (Acetaminophen 325 Mg Tablet) 650 mg PO Q6HP PRN; Protocol PRN Reason: Per Pain Protocol/Fever > 101 Last Admin: 02/18/22 09:08 Dose: 650 mg Documented by: Hydrocodone Bitart/Acetaminophen (Hydrocodone/Apap 5/325mg Tablet) 0 tab PO Q4HP PRN; Protocol PRN Reason: Per Pain Protocol Last Admin: 02/16/22 13:02 Dose: 2 tab Documented by: Atorvastatin Calcium (Atorvastatin 40 Mg Tablet) 40 mg PO HS [facility] Last Admin: 02/17/22 20:50 Dose: 40 mg Documented by: Bisacodyl (Bisacodyl 10 Mg Supp.Rect) 10 mg MO Q2-3DAYS PRN PRN Reason: Constipation Bupropion HCl (Bupropion 150 Mg Tab.Xl.24h) 150 mg PO DAILY [facility] Last Admin: 02/18/22 09:02 Dose: 150 mg Documented by: Docusate Sodium (Docusate Sodium 100 Mg Capsule) 100 mg PO BID [facility] Last Admin: 02/18/22 09:02 Dose: 100 mg Documented by: Docusate Sodium (Docusate Sodium 100 Mg Capsule) 100 mg PO BID [facility] Enoxaparin Sodium (Enoxaparin 40 Mg/0.4 Ml Syringe) 40 mg SQ DAILY [facility] Last Admin: 02/18/22 09:03 Dose: 40 mg Documented by: Escitalopram Oxalate (Escitalopram 10 Mg Tablet) 10 mg PO QAM [facility] Last Admin: 02/18/22 09:02 Dose: 10 mg Documented by: Hydromorphone HCl (Hydromorphone 2 Mg Tablet) 2 mg PO Q4HP PRN; Protocol PRN Reason: Per Pain Protocol Last Admin: 02/15/22 10:32 Dose: 2 mg Documented by: Loratadine (Loratadine 10 Mg Tablet) 10 mg PO DAILY [facility] Last Admin: 02/18/22 09:02 Dose: 10 mg Documented by: Losartan Potassium (Losartan 50 Mg Tablet) 50 mg PO QAM [facility] Last Admin: 02/18/22 09:02 Dose: 50 mg Documented by: Magnesium Hydroxide (Magnesium Hydroxide 30 Ml Oral.Susp) 30 ml PO DAILYP PRN PRN Reason: Constipation Methocarbamol (Methocarbamol 500 Mg Tablet) 500 mg PO TIDP PRN PRN Reason: Muscle Spasm Morphine Sulfate (Morphine 4 Mg/Ml Vial) 4 mg IV Q4HP PRN; Protocol PRN Reason: Per Pain Protocol Last Admin: 02/15/22 15:33 Dose: 4 mg Documented by: Ondansetron HCl (Ondansetron 4 Mg/2 Ml Vial) 4 mg IV Q6HP PRN PRN Reason: Nausea And Vomiting Last Admin: 02/15/22 10:32 Dose: 4 mg Documented by: Pantoprazole Sodium (Pantoprazole 40 Mg Tablet) 40 mg PO QAMAC [facility] Last Admin: 02/18/22 07:31 Dose: 40 mg Documented by: Polyethylene Glycol (Polyethylene Glycol 3350 17 Gm Packet) 17 gm PO DAILYP PRN PRN Reason: Constipation Last Admin: 02/17/22 19:04 Dose: 17 gm Documented by: Propranolol HCl (Propranolol 60 Mg Cap.Xl.24h) 60 mg PO QAM [facility] Last Admin: 02/18/22 09:02 Dose: 60 mg Documented by: Senna (Sennosides 1 Tablet) 2 tab PO HS [facility] Last Admin: 02/17/22 20:50 Dose: 2 tab Documented by: Sodium Biphosphate/Sodium Phosphate (Fleets Adult Enema) 1 dose MO Q3-4DAYS PRN PRN Reason: Constipation Sodium Chloride (0.9 % Sodium Chloride 10 Ml Syringe) 10 ml IV Q8 [facility] Last Admin: 02/18/22 05:34 Dose: 10 ml Documented by: Sucralfate (Sucralfate 1 Gm Tablet) 1 gm PO BIDAC [facility] Last Admin: 02/18/22 07:31 Dose: 1 gm Documented by: A/P Assessment and plan (1) S/P colostomy takedown: Status: Acute (2) COVID-19 vaccine series declined: Status: Acute (3) COPD (chronic obstructive pulmonary disease): Status: Acute Qualifiers: COPD type: emphysema Emphysema type: panlobular Qualified Code(s): J43.1 - Panlobular emphysema (4) GERD (gastroesophageal reflux disease): Status: Acute Qualifiers: Esophagitis presence: esophagitis presence not specified Qualified Code(s): K21.9 - Gastro-esophageal reflux disease without esophagitis (5) Recurrent falls: Status: Acute (6) Hypertension: Status: Acute Qualifiers: Hypertension type: essential hypertension Qualified Code(s): I10 - Essential (primary) hypertension (7) Depression: Status: Acute (8) Closed left ankle fracture: Status: Acute (9) Syncope: Status: Acute Narrative A/P Narrative: The prodromal symptoms leading up to her syncopal event are unclear. She may need vagal testing performed by neurology down the road. At this time, she will require immediate surgical fixation of her left ankle fracture per orthopedic surgery likely tomorrow morning. Continue pain control with narcotic analgesics. She will be n.p.o. after midnight. PT/OT evaluation postoperatively. Social work and case management work on disposition. 02/15: The patient is doing quite well. She is scheduled to go to the OR at 3:30 PM. Postoperative management per orthopedic surgery. 02/16: The patient is doing quite well. She has no active complaints or concerns. She will need to go to a longterm facility for rehabilitation. 02/17: The patient underwent open reduction and internal fixation of her left fibular fracture. Spanning ankle external fixator applicator was placed. The postoperative plan will be definitive fixation in 7 to 10 days once the fracture blisterosis resolves. 02/18: The patient's pain is well controlled. However while on narcotic analgesic, she is developed opioid-induced constipation. We will add aggressive bowel management including the possibility of a Fleet enema. Social work and case management are planning for discharge to [place] tomorrow morning. Time Spent With Patient Time: Total time spent is greater than 50% in coordination of care (as documented) at patient's floor/unit and/or counseling patient: Total time spent with greater than 50% in coordination of care (as documented) at patient's floor/unit and/or counseling patient:: 25 - 35 minutes
[2022-02-18] MEDS: SENNOSIDES 1 TABLET PO SCH (21:59)
[2022-02-18] MEDS: ATORVASTATIN 40 MG TABLET PO SCH (21:59)
[2022-02-19] MEDS: 0.9 % SODIUM CHLORIDE 10 ML SYRINGE IV SCH (04:55)
--- NOTE | 2022-02-19 05:36 | Orthopedic Progress Note ---
SUBJECTIVE Subjective Patient information: Note initiated : 02/19/22 at 5:30 am Service Date, if different from initiated Date: [] Patient: Liya Song 66 y/o F admitted on 02/14/22 for left ankle deformity, fall. Chief Complaint: [doing well, no issues. pain controlled with tylenol. tolerating oral intake. notable for constipation] Principal diagnosis: Ankle fracture Constitutional Vitals: Vital Signs Temp Pulse Resp BP Pulse Ox 97.7 F 76 20 123/76 95 02/19/22 00:00 02/19/22 00:00 02/19/22 00:00 02/19/22 00:00 02/19/22 00:00 Period Temp Pulse Resp BP Sys/Manjarrez Pulse Ox Last 24 Hr 97.7 F-99.1 F 74-76 20-20 98-132/53-76 95-97 Intake and Output 02/18/22 02/18/22 02/19/22 13:59 21:59 05:59 Intake Total 1140 Balance 1140 Weight 205 lb 2 oz Patient Weight 02/19/22 05:59 Weight 205 lb 2 oz Intake & Output: Intake & Output 02/18/22 02/18/22 02/19/22 13:59 21:59 05:59 Intake Total 1140 Balance 1140 Weight 205 lb 2 oz Intake: Oral 1140 Other: Meal Lunch Percent of Meal Consumed 50% Additional findings Additional findings: general: alert oriented appropriate left foot: ex fix in place, pin sites clean and dry- no drainage. foot has some dependend edema as expected. Able to move toes. warm well perfused. OBJ DATA Labs CBC & Chem 7: 02/15/22 05:20 02/15/22 05:20 Meds: Medications Acetaminophen (Acetaminophen 325 Mg Tablet) 650 mg PO Q6HP PRN; Protocol PRN Reason: Per Pain Protocol/Fever > 101 Last Admin: 02/18/22 09:08 Dose: 650 mg Documented by: Hydrocodone Bitart/Acetaminophen (Hydrocodone/Apap 5/325mg Tablet) 0 tab PO Q4HP PRN; Protocol PRN Reason: Per Pain Protocol Last Admin: 02/16/22 13:02 Dose: 2 tab Documented by: Atorvastatin Calcium (Atorvastatin 40 Mg Tablet) 40 mg PO HS LANCE Last Admin: 02/18/22 21:59 Dose: 40 mg Documented by: Bisacodyl (Bisacodyl 10 Mg Supp.Rect) 10 mg [place] Q2-3DAYS PRN PRN Reason: Constipation Bupropion HCl (Bupropion 150 Mg Tab.Xl.24h) 150 mg PO DAILY [facility] Last Admin: 02/18/22 09:02 Dose: 150 mg Documented by: Docusate Sodium (Docusate Sodium 100 Mg Capsule) 100 mg PO BID [facility] Last Admin: 02/18/22 21:59 Dose: 100 mg Documented by: Docusate Sodium (Docusate Sodium 100 Mg Capsule) 100 mg PO BID [facility] Last Admin: 02/18/22 22:00 Dose: Not Given Documented by: Enoxaparin Sodium (Enoxaparin 40 Mg/0.4 Ml Syringe) 40 mg SQ DAILY [facility] Last Admin: 02/18/22 09:03 Dose: 40 mg Documented by: Escitalopram Oxalate (Escitalopram 10 Mg Tablet) 10 mg PO QAM [facility] Last Admin: 02/18/22 09:02 Dose: 10 mg Documented by: Hydromorphone HCl (Hydromorphone 2 Mg Tablet) 2 mg PO Q4HP PRN; Protocol PRN Reason: Per Pain Protocol Last Admin: 02/15/22 10:32 Dose: 2 mg Documented by: Loratadine (Loratadine 10 Mg Tablet) 10 mg PO DAILY [facility] Last Admin: 02/18/22 09:02 Dose: 10 mg Documented by: Losartan Potassium (Losartan 50 Mg Tablet) [facility] [place] Admin: 02/18/22 09:02 Dose: 50 mg Documented by: Magnesium Hydroxide (Magnesium Hydroxide 30 Ml Oral.Susp) 30 ml PO DAILYP PRN PRN Reason: Constipation Methocarbamol (Methocarbamol 500 Mg Tablet) 500 mg PO TIDP PRN PRN Reason: Muscle Spasm Morphine Sulfate (Morphine 4 Mg/Ml Vial) 4 mg IV Q4HP PRN; Protocol PRN Reason: Per Pain Protocol Last Admin: 02/15/22 15:33 Dose: 4 mg Documented by: Ondansetron HCl (Ondansetron 4 Mg/2 Ml Vial) 4 mg IV Q6HP PRN PRN Reason: Nausea And Vomiting Last Admin: 02/15/22 10:32 Dose: 4 mg Documented by: Pantoprazole Sodium (Pantoprazole 40 Mg Tablet) [facility] Last Admin: 02/18/22 07:31 Dose: 40 mg Documented by: Polyethylene Glycol (Polyethylene Glycol 3350 17 Gm Packet) 17 gm PO DAILYP PRN PRN Reason: Constipation Last Admin: 02/17/22 19:04 Dose: 17 gm Documented by: Propranolol HCl (Propranolol 60 Mg Cap.Xl.24h) 60 mg PO QAM [facility] Last Admin: 02/18/22 09:02 Dose: 60 mg Documented by: Senna (Sennosides 1 Tablet) 2 tab PO HS [facility] Last Admin: 02/18/22 21:59 Dose: 2 tab Documented by: Sodium Biphosphate/Sodium Phosphate (Fleets Adult Enema) 1 dose IL Q3-4DAYS PRN PRN Reason: Constipation Sodium Chloride (0.9 % Sodium Chloride 10 Ml Syringe) 10 ml IV Q8 [facility] Last Admin: 02/19/22 04:55 Dose: 10 ml Documented by: Sucralfate (Sucralfate 1 Gm Tablet) 1 gm PO BIDAC [facility] Last Admin: 02/18/22 16:23 Dose: 1 gm Documented by: A/P Assessment and plan (1) Closed left ankle fracture: Assessment and plan: POD 4 s/p orif left fibula and ex fix application - non weight bearing ---ex fix pin care with chlorohexidine/saline 50/50 daily - pt for mobilization - oral pain meds- only taking tylenol - prophy: IS, foot pumps, lovenox, mobilziation as possible - dispo: likely to SNF today. Will plan on final fixation on Saturday. Will try and coordinate with OR/case management Status: Acute Time Spent With Patient Time: Total time spent is greater than 50% in coordination of care (as documented) at patient's floor/unit and/or counseling patient:
[2022-02-19] MEDS: PANTOPRAZOLE 40 MG TABLET PO SCH (07:23)
[2022-02-19] MEDS: SUCRALFATE 1 GM TABLET PO SCH (07:23)
[2022-02-19] MEDS: ENOXAPARIN 40 MG/0.4 ML SYRINGE SQ SCH (08:55)
[2022-02-19] MEDS: LORATADINE 10 MG TABLET PO SCH (08:56)
[2022-02-19] MEDS: PROPRANOLOL 60 MG CAP.XL.24H PO SCH (08:56)
[2022-02-19] MEDS: LOSARTAN 50 MG TABLET PO SCH (08:56)
[2022-02-19] MEDS: DOCUSATE SODIUM 100 MG CAPSULE PO SCH (08:56)
[2022-02-19] MEDS: buPROPion 150 MG TAB.XL.24H PO SCH (08:56)
[2022-02-19] MEDS: ESCITALOPRAM 10 MG TABLET PO SCH (08:56)
--- NOTE | 2022-02-19 10:13 | Discharge Summary ---
Discharge Provider Provider Patient information: Note initiated : 02/19/22 at 10:11 am Service Date, if different from initiated Date: [as above] Patient: Liya Song 66 y/o F admitted on 02/14/22 for left ankle deformity, fall. Chief Complaint: [LOC, ankle fracture] Date of admission: 02/14/22 23:10 Discharge date: 02/19/22 Primary care physician: Nehal Sepulveda PA-C Admitting clinician: Jelani Marie Consults: 02/14/22 Consult to Physician [CONS] Stat Comment: Consulting Provider: Jelani Marie Reason For Exam: Physician to Consult Discharging clinician: Jelani Marie Discharge Meds Discharge Medications Home Medications calcium carbonate 600 mg-vitamin D3 5 mcg (200 unit) capsule (Calcium 600 + D(3)) 1 cap PO DAILY 11/09/20 [History Confirmed 02/14/22 Last Taken 03/28/21 08:00] omega-3 fatty acids 2,000 mg PO QDAY 03/23/21 [History Confirmed 02/14/22 Last Taken 02/14/22] loratadine 10 mg tablet (Claritin) 10 mg PO QDAY #90 tab 08/14/21 [Rx Confirmed 02/14/22 Last Taken 02/14/22] pantoprazole 40 mg tablet,delayed release 40 mg PO QDAY #90 tab 08/14/21 [Rx Confirmed 02/14/22 Last Taken 02/14/22] rosuvastatin 20 mg tablet 20 mg PO QDAY #90 tab 10/02/21 [Rx Confirmed 02/14/22 Last Taken 02/14/22] bupropion HCl 150 mg 24 hr tablet, extended release 150 mg PO QAM 11/13/21 [History Confirmed 02/14/22 Last Taken 02/14/22] escitalopram oxalate 10 mg tablet 10 mg PO QAM 11/13/21 [History Confirmed 02/14/22 Last Taken 02/14/22] propranolol 60 mg capsule,24 hr,extended release 60 mg PO QAM 11/13/21 [History Confirmed 02/14/22 Last Taken 02/14/22] sucralfate 1 gram tablet (Carafate) 1 g PO BID #120 tab 11/20/21 [Rx Confirmed 02/14/22 Last Taken 02/14/22] losartan 50 mg tablet 50 mg PO QAM #90 tab 01/04/22 [Rx Confirmed 02/14/22 Last Taken 02/14/22] acetaminophen 325 mg tablet (Tylenol) 650 mg PO Q6HP PRN #60 tab 02/19/22 [Rx Last Taken Unknown] enoxaparin 40 mg/0.4 mL subcutaneous syringe (Lovenox) 40 mg (0.4 mL) SQ DAILY #30 ml 02/19/22 [Rx Last Taken Unknown] COURSE Hospital Course Hospital course: Ms. Song is a 66 year old F with a complex past medical history significant for pelvic abscess status post sigmoid colectomy with Jose procedure and colostomy reversal complicated by chronic nausea/vomiting who presents to the hospital syncopal event resulting in a ground-level fall now with a distal left tibia/fibular fracture. She presented to the hospital for further management and evaluation. Trauma set of imaging was performed. X-ray confirmed comminunated fracture. Orthopedic surgery evaluated patient and she will be taken to the OR either tonight or tomorrow morning. Hospitalist service was asked admit the patient for comanagement. The prodromal symptoms leading up to her syncopal event are unclear. She may need vagal testing performed by neurology down the road. At this time, she will require immediate surgical fixation of her left ankle fracture per orthopedic surgery likely tomorrow morning. Continue pain control with narcotic analgesics. She will be n.p.o. after midnight. PT/OT evaluation postoperatively. Social work and case management work on disposition. 02/15: The patient is doing quite well. She is scheduled to go to the OR at 3:30 PM. Postoperative management per orthopedic surgery. 02/16: The patient is doing quite well. She has no active complaints or concerns. She will need to go to a half-way facility for rehabilitation. 02/17: The patient underwent open reduction and internal fixation of her left fibular fracture. Spanning ankle external fixator applicator was placed. The postoperative plan will be definitive fixation in 7 to 10 days once the fracture blisterosis resolves. 02/18: The patient's pain is well controlled. However while on narcotic analgesic, she is developed opioid-induced constipation. We will add aggressive bowel management including the possibility of a Fleet enema. Social work and case management are planning for discharge to [place] tomorrow morning. 02/19:as per ortho "POD 4 s/p orif left fibula and ex fix application - non weight bearing ---ex fix pin care with chlorohexidine/saline 50/50 daily - pt for mobilization - oral pain meds- only taking tylenol - prophy: IS, foot pumps, lovenox, mobilziation as possible - dispo: likely to SNF today. Will plan on final fixation on Saturday. Will try and coordinate with OR/case management" Discharge diagnosis: Syncope, left ankle fracture Time Spent with Patient Time attestation: Total time spent providing and/or coordinating discharge services: Time spent: Greater than 30 minutes EXAM Constitutional Vitals: Temp Pulse Resp BP Pulse Ox 97.5 F 68 16 122/69 96 02/19/22 07:02 02/19/22 08:00 02/19/22 07:02 02/19/22 07:02 02/19/22 07:02 General appearance: average body habitus Head Head exam: Present atraumatic, normal inspection and normocephalic Eye Eye exam: Present EOMI, normal appearance and PERRL; Absent conjunctival injection ENT ENT exam: Present normal exam; Absent mucous membranes dry Neck Neck exam: Present full ROM; Absent lymphadenopathy Respiratory Respiratory exam: Present normal respiratory exam and CTAB; Absent decreased breath sounds, respiratory distress or wheezes Cardiovascular Cardiovascular exam: Present normal rate and rhythm and RRR; Absent JVD GI/Abdominal GI/Abdominal exam: Present normal bowel sounds and soft; Absent diminished bowel sounds, distended, guarding, mass, rebound or tenderness Neurological Exam Neurological exam: Present alert, CN II-XII intact and oriented X3 Psychiatric Psychiatric exam: Present normal affect and normal mood Skin Skin exam: Present intact and warm; Absent erythema, pallor, petechiae or rash Discharge Plan Patient/Caregiver Discharge Instructions Activity: non-weight bearing Diet: Regular Diet Activity Restrictions/Additional Instructions: -Keep foot elevated as much as possible just slightly higher than level of heart -Daily pin site care using 50/50 mixture of chlorohexidine and saline. Move the skin when doing this to ensure the skin is not sticking to the pins -Move toes as possible -Non weight bearing on the left side. Weight bearing as tolerated on the right side -Lovenox daily but hold the Saturday [id number] dose Prescriptions: New acetaminophen [Tylenol] 325 mg Tablet 650 mg PO Q6HP PRN (Reason: Per Pain Protocol/Fever > 101) Qty: 60 0RF enoxaparin [Lovenox] 40 mg/0.4 mL Syringe 40 mg SQ DAILY Qty: 30 0RF No Action pantoprazole 40 mg tablet,delayed release (DR/EC) 40 mg PO QDAY Qty: 90 1RF loratadine [Claritin] 10 mg tablet 10 mg PO QDAY Qty: 90 1RF rosuvastatin 20 mg tablet 20 mg PO QDAY Qty: 90 3RF sucralfate [Carafate] 1 gram tablet 1 g PO BID Qty: 120 12RF losartan 50 mg tablet 50 mg PO QAM Qty: 90 3RF Calcium 600 + D(3) 600 mg calcium- 200 unit Capsule 1 cap PO DAILY 0RF Label Comments: Stopped taking a year ago omega-3 fatty acids Capsule 2,000 mg PO QDAY 0RF Label Comments: WILL HOLD FOR SURGERY propranolol 60 mg capsule,extended release 24 hr 60 mg PO QAM 0RF escitalopram oxalate 10 mg tablet 10 mg PO QAM 0RF bupropion HCl 150 mg tablet extended release 24 hr 150 mg PO QAM 0RF Other Ambulatory Orders: OT Discharge Order (Routine) Location: None Selected Ordered By: Jelani Marie Physical Therapy at Discharge - General (Routine) Location: None Selected Ordered By: Jelani Marie Follow Up Plan Follow up with: Nehal Sepulveda PA-C [Primary Care Provider] - Patient Disposition: Xfer SNF Prognosis: Fair Rehab Potential: Good I certify that the patient requires SNF services: Yes Overall status at discharge: patient is progressing back to baseline Discharge Orders: Discharge Order (Routine); Ordered 02/19/22 Ordered By: Jelani Marie
[2022-02-19] MEDS: ACETAMINOPHEN 325 MG TABLET PO PRN (11:06)
== END 2022-02-19 13:10 | DRG 494 ==
LOC: ED 18:57 → MEDSUR 23:10
PROVIDERS: ADMIT Student in an Organized Health Care Education/Training Program; ATTEND Student in an Organized Health Care Education/Training Program